=== PATIENT | female | born 1965 | race Caucasian/White ===

== ENCOUNTER 2020-01-04 09:44 | Day surgery (SDC) | payer BC, SELFPAY ==
[2019-12-28 11:55] VITALS: BMI 22.1
--- NOTE | 2020-01-02 09:08 | P.CONAN_ITS ---
Documented by User: Bridget Akers 01/02/20 09:10 HPI - Anesthesia Eval Consult details Narrative: 54yo F for Colonoscopy [facility] Past Medical History Medical History CLL (chronic lymphocytic leukemia) Surgical History Surgical History Hx of section Social History Social History Are you a primary care management coordinator to a significant other at home: No Do you presently have visiting nurse or other home services: No Smoking Status: Never smoker Use of substances other than those prescribed or required for medical reasons: No Have you been hit, kicked, punched, or otherwise hurt by someone within the past year? If so, by whom?: No Advance Directives: No Advance Directives Information Provided: No Recently lost weight without trying: No Meds Allergies Allergy/AdvReac Type Severity Reaction Status Date / Time codeine [Codeine] Allergy Unknown RASH Verified 01/04/20 10:06 Home Medications Medication Instructions Recorded Confirmed Type cholecalciferol (vitamin D3) 50 mcg PO DAILY 12/28/19 12/28/19 History [Vitamin D3] Exam Exam Date and Time: January 02, 2020 0908 Height,Weight and Vital Signs: Height 5 ft 3 in Weight 56.699 kg Pertinent Lab Results Pertinent Lab Results: Laboratory Tests 05/22/19 12/18/19 09:27 09:17 WBC 18.0 H Hgb 10.2 L Hct 33.7 L Plt Count 145 L Sodium 141 Potassium 4.5 Chloride 104 BUN 12 Creatinine 0.84 Assessment and Plan Assessment Anesthesia Assessment: Chart Reviewed Documented by User: Jackson Larry MD 01/04/20 10:13 [facility] Past Medical History Medical History CLL (chronic lymphocytic leukemia) Surgical History Surgical History Hx of section Social History Social History Are you a primary care management coordinator to a significant other at home: No Do you presently have visiting nurse or other home services: No Smoking Status: Never smoker Use of substances other than those prescribed or required for medical reasons: No Have you been hit, kicked, punched, or otherwise hurt by someone within the past year? If so, by whom?: No Advance Directives: No Advance Directives Information Provided: No Recently lost weight without trying: No Meds Allergies Allergy/AdvReac Type Severity Reaction Status Date / Time codeine [Codeine] Allergy Unknown RASH Verified 01/04/20 10:06 Home Medications Medication Instructions Recorded Confirmed Type cholecalciferol (vitamin D3) 50 mcg PO DAILY 12/28/19 12/28/19 History [Vitamin D3] Exam Airway Mallampati Class: II TM Dist: >3cm Neck ROM: Full Heart: rrr Lungs: nl Other: ao Assessment and Plan Assessment Anesthesia Assessment: Anesthesia Plan Discussed and Chart Reviewed Final Anesthetic Review NPO: Yes ASA Class: III Final Preanesthetic Review: No Changes in Pt Med Stat, Meds/Allgs Chart Reviewed, Consent Obtained/Reviewed and Anes Risks/Benef Reviewed Patient Risk: Low Procedure Risk: Low Anesthetic Plan Anesthetic Plan: MAC: Disposition: Standard PACU
[2020-01-04 10:07] VITALS: BP 142/77; PULSE 63; RESP 16; TEMP 37; O2SAT 100
[2020-01-04] MEDS: Lactated Ringers 1,000 ML 100 ML IVCONT (10:29)
--- NOTE | 2020-01-04 11:03 | P.HPSUR_ITS ---
Pre-Procedural Eval Section A The patient is an INPATIENT: No The History & Physical has been completed within 30 days and I have reviewed it.: No Section B Chief Complaint: Diarrhea Details of Present Illness: Colon cancer screening--Diarrhea only episdodic. Relevant Family History (Specify if Yes): No Relevant Social History: None Present Medications: see Short Stay Collaborative assessment Medical History: Significant History (CLL) History of Previous Operations: Relevant previous surgery/procedure and date(s) ( x 1) Allergies: Allergies Allergy/AdvReac Type Severity Reaction Status Date / Time codeine [Codeine] Allergy Unknown RASH Verified 01/04/20 10:06 Review of Systems Sugical H&P ROS: Negative: Constitution, Cardiovascular, Respiratory and Gastrointestinal and Yes, Specify: Hem-Onc (CLL--followed @ [facility]) Review of Systems Comment: General ROS is negative. Exam Surgical H&P Exam: Normal: HEENT, Normal: Heart, Normal: Lungs, Normal: E xtremities, Normal: Abdomen and Normal: Skin Plan Diagnosis/Plan: Unchanged Patient has been examined and remains a candidate for the planned procedure--YES
--- NOTE | 2020-01-04 11:11 | MHC.SHP ---
Pre-Procedural Eval Section A The patient is an INPATIENT: No The History & Physical has been completed within 30 days and I have reviewed it.: No Section B Chief Complaint: Diarrhea Details of Present Illness: Colonoscopy--Colon cancer screening Relevant Family History (Specify if Yes): No Relevant Social History: None Present Medications: see Short Stay Collaborative assessment Medical History: Significant History (CLL) History of Previous Operations: No relevant previous surgery () Allergies: Allergies Allergy/AdvReac Type Severity Reaction Status Date / Time codeine [Codeine] Allergy Unknown RASH Verified 01/04/20 10:06 Review of Systems Sugical H&P ROS: Negative: Constitution, Cardiovascular, Respiratory, Neurological, Psychiatric and Gastrointestinal Review of Systems Comment: General ROS is negative Exam Surgical H&P Exam: Normal: HEENT, Normal: Heart, Normal: Lungs, Normal: Extremities, Normal: Abdomen and Normal: Skin Plan Patient has been examined and remains a candidate for the planned procedure--YES
--- NOTE | 2020-01-04 11:36 | PM.PROC ---
Brief Operative Note Date of procedure: 01/04/20 Pre-op diagnosis: Colon cancer screening Post-op diagnosis: other (Normal exam ) Procedure: COLONOSCOPY Anesthesia: MAC (SHERRILL GUSMNA) Surgeon: Akosua Hunter Estimated blood loss (mL): 0 Pathology: none sent Condition: stable Disposition: PACU
[2020-01-04 11:40] VITALS: BP 105/50; PULSE 70; RESP 16; TEMP 36.1; O2SAT 99
[2020-01-04 11:55] VITALS: BP 100/62; PULSE 66; RESP 16; O2SAT 97
[2020-01-04 12:10] VITALS: BP 119/78; PULSE 65; RESP 16; O2SAT 99
[2020-01-04 12:25] VITALS: BP 131/77; PULSE 62; RESP 16; O2SAT 100
--- NOTE | 2020-01-04 12:48 | HO.POSTANES ---
Post Anesthesia Evaluation Post Anesthesia Evaluation Vital Signs: Vital Signs Temp Pulse Resp BP Pulse Ox 01/04/20 12:25 62 16 131/77 100 01/04/20 12:10 65 16 119/78 99 01/04/20 11:55 66 16 100/62 97 01/04/20 11:40 97 F 70 16 105/50 L 99 01/04/20 10:07 98.6 F 63 16 142/77 H 100 Anesthesia: Monitored Mental Status: Awake Pain Control: Satisfactory Nausea/Vomiting: None Hydration: Adequate Anesthesia-Related Issues: No Anes. Related Issues
--- NOTE | 2020-01-04 20:59 | OP_ITS ---
SURGEON: Akosua Hunter MD PREOPERATIVE DIAGNOSIS: Colon cancer screening. Note, the patient has a history of carrying a diagnosis of chronic lymphocytic leukemia. POSTOPERATIVE DIAGNOSIS: Normal exam. PROCEDURE PERFORMED: Colonoscopy. ESTIMATED BLOOD LOSS: No blood loss. COMPLICATIONS: No complications. ANESTHESIA: Monitored. ANESTHESIOLOGIST: Maninder Erazo CRNA ASSISTANTS: No financial sales assistant. SPECIMENS: No specimens removed. GAMING CAGE WORKER: Dr. Hunter. FINDINGS: Digital rectal exam revealed sphincter tone to be adequate. Video colonoscope was introduced without difficulty. It was navigated into the rectosigmoid and sigmoid. With slight redundancy in this area, scope then entered descending, transverse, ascending colon down into the cecal cap. Prep was excellent. Good mucosal detail was present. Slow rotational views on withdrawal of the scope. No mucosal lesions were appreciated. Anorectal verge was clear. PLAN AND CURRENT RECOMMENDATIONS: Repeat asymptomatic screening in this patient would be 7 years taking into consideration and underlying comorbid process. GRAFT OR IMPLANTS: No implants. CONDITION: Postprocedure, stable. Akosua Hunter MD MEN/MODL / [id number] MTDD
== END 2020-01-04 13:21 | disposition home or self-care (01) ==
PROVIDERS: Internal Medicine Gastroenterology; PCP Internal Medicine; Visit Provider Internal Medicine
PROC: 0DJD8ZZ Inspection of Lower Intestinal Tract, Via Natural or Artificial Opening Endoscopic (ICD-10-PCS; CPT 45378; principal; 2020-01-04 11:10)
DX: Z12.11 Encounter for screening for malignant neoplasm of colon (principal); R19.7 Diarrhea, unspecified; C91.10 Chronic lymphocytic leukemia of B-cell type not having achieved remission; Z88.8 Allergy status to other drugs, medicaments and biological substances; Z79.899 Other long term (current) drug therapy
CPT/HCPCS: 45378

== ENCOUNTER → 2020-01-24 16:31 | Outpatient (BNVA) | payer BC, SELFPAY | PROVIDERS: PCP Internal Medicine; Referring Provider Internal Medicine; Visit Provider Physician Assistant | DX: Z76.89 Persons encountering health services in other specified circumstances (principal) ==

== ENCOUNTER 2020-02-01 08:02 | Outpatient (REF) | payer BC, SELFPAY ==
[2020-02-01 11:28] LABS: Hemoglobin 10.4 g/dl (12.0-16.0); Imm Gran Pct Auto 0.4 % (0.0-0.4); Lymphocytes Percent Auto 82.9 % (20-40); MANUAL DIFF FLAG SCAN; Mean Platelet Volume 11.7 fL (9.4-12.3); NRBC Pct Auto 0.1 /100WBC (0.0-0.2); PLT CLUMP 1; SCAN SMEAR FLAG 1
[2020-02-01 11:30] LABS: Basophils Absolute Auto 0.1 X10*3/uL (0.0-0.2); Basophils Percent Auto 0.5 % (0-2); Eosinophils Absolute Auto 0.2 X10*3/uL (0.0-0.4); Eosinophils Percent Auto 0.8 % (0-4); Hematocrit 34.7 % (37-47); Mean Corpuscular Hemoglobin 23.7 pg (27.0-33.0); Mean Corpuscular Volume 79.2 fL (80-98); Monocytes Absolute Auto 0.6 X10*3/uL (0.1-1.2); Monocytes Percent Auto 2.5 % (2-11); Neutrophils Absolute Auto 3.3 X10*3/uL (2.0-8.3); Neutrophils Percent Auto 12.9 % (45-73); Red Blood Count 4.38 X10*6/uL (4.20-5.50); White Blood Count 25.7 X10*3/uL (4.8-10.8)
[2020-02-01 11:36] LABS: Lymphocytes Absolute Auto 21.3 X10*3/uL (1.2-4.9)
[2020-02-01 11:37] LABS: PLT ABN DIST 1
[2020-02-01 12:45] LABS: Platelet Count 135 X10*3/uL (160-400)
[2020-02-01 14:22] LABS: SLIDE REVIEW VERIFIED
== END 2020-02-01 08:03 | disposition home or self-care (01) ==
LOC: HO.HMGCLR 08:02
PROVIDERS: PCP Internal Medicine; Visit Provider Internal Medicine Hematology & Oncology
DX: C91.10 Chronic lymphocytic leukemia of B-cell type not having achieved remission (principal)
CPT/HCPCS: 36415; 85025

== ENCOUNTER 2020-03-14 09:57 | Outpatient (REF) | payer BC, SELFPAY | END 2020-03-14 09:58 | disposition home or self-care (01) | LOC: HO.LAB 09:57 | PROVIDERS: Visit Provider Nurse Practitioner Family | DX: N39.0 Urinary tract infection, site not specified (principal); R30.0 Dysuria | CPT/HCPCS: 87086; 87088; 87186 ==

== ENCOUNTER 2020-04-22 10:25 | Outpatient (REF) | payer BC, SELFPAY ==
[2020-04-22 11:16] LABS: Hematocrit 32.7 % (37-47); Hemoglobin 9.6 g/dl (12.0-16.0); Mean Corpuscular HGB Conc 29.4 g/dl (31.0-35.0); NRBC Pct Auto 0.1 /100WBC (0.0-0.2); PLT CLUMP 1; Red Cell Distribution Width 21.4 % (11.0-16.0)
[2020-04-22 11:18] LABS: Mean Corpuscular Hemoglobin 24.1 pg (27.0-33.0); Mean Platelet Volume 10.4 fL (9.4-12.3); Platelet Count 129 X10*3/uL (160-400); Red Blood Count 3.99 X10*6/uL (4.20-5.50)
[2020-04-22 13:58] LABS: PLT ABN DIST 1; WBC ABN SCTR FOR CBC 1
[2020-04-22 13:59] LABS: White Blood Count 66.6 X10*3/uL (4.8-10.8)
[2020-04-22 14:09] LABS: Band Neutrophils Percent 0 % (3-5); Hypochromasia 1+; Lymphocytes Absolute Manual 57.9 X10*3/uL (0.6-4.8); Lymphocytes Percent Manual 87 % (20-40); Monocytes Absolute Manual 1.3 X10*3/uL (0.0-1.2); Monocytes Percent Manual 2 % (2-11); Neutrophils Absolute Manual 7.3 X10*3/uL (2.2-7.9); Neutrophils Percent Manual 11 % (45-73); RBC Morphology NOTED; Smudge Cells PRESENT
[2020-04-22 14:10] LABS: Ovalocytes 1+; Platelet Estimate SLIGHTLY DECREASED (NORMAL); Platelet Morphology Comment NORMAL
== END 2020-04-22 10:26 | disposition home or self-care (01) ==
LOC: HO.HMGCLDS 10:25
PROVIDERS: PCP Internal Medicine; Visit Provider Internal Medicine Hematology & Oncology
DX: C91.10 Chronic lymphocytic leukemia of B-cell type not having achieved remission (principal)
CPT/HCPCS: 36415; 85007; 85025; 85027

== ENCOUNTER 2020-05-13 07:54 | Outpatient (REF) | payer BC, SELFPAY ==
[2020-05-13 11:21] LABS: Basophils Absolute Auto 0.2 X10*3/uL (0.0-0.2); Basophils Percent Auto 0.4 % (0-2); Eosinophils Absolute Auto 0.2 X10*3/uL (0.0-0.4); Eosinophils Percent Auto 0.4 % (0-4); Hematocrit 36.4 % (37-47); Hemoglobin 10.6 g/dl (12.0-16.0); Imm Gran Abs Auto 0.03 X10*3/uL (0.00-0.03); Imm Gran Pct Auto 0.1 % (0.0-0.4); MANUAL DIFF FLAG SCAN; Mean Corpuscular HGB Conc 29.1 g/dl (31.0-35.0); PLT CLUMP 1; SCAN SMEAR FLAG 1
[2020-05-13 11:23] LABS: Lymphocytes Percent Auto 94.1 % (20-40); Mean Corpuscular Hemoglobin 25.4 pg (27.0-33.0); Mean Corpuscular Volume 87.3 fL (80-98); Mean Platelet Volume 10.4 fL (9.4-12.3); Monocytes Absolute Auto 0.8 X10*3/uL (0.1-1.2); Neutrophils Absolute Auto 1.3 X10*3/uL (2.0-8.3); Platelet Count 183 X10*3/uL (160-400); Red Blood Count 4.17 X10*6/uL (4.20-5.50); Red Cell Distribution Width 24.1 % (11.0-16.0)
[2020-05-13 11:41] LABS: Lymphocytes Absolute Auto 39.7 X10*3/uL (1.2-4.9)
[2020-05-13 12:07] LABS: SLIDE REVIEW VERIFIED; White Blood Count 42.2 X10*3/uL (4.8-10.8)
== END 2020-05-13 07:55 | disposition home or self-care (01) ==
LOC: HO.HMGCLDS 07:54
PROVIDERS: PCP Internal Medicine; Visit Provider Internal Medicine Hematology & Oncology
DX: C91.10 Chronic lymphocytic leukemia of B-cell type not having achieved remission (principal)
CPT/HCPCS: 36415; 85025

== ENCOUNTER → 2020-05-15 07:55 | Outpatient (BNVA) | payer BC, SELFPAY | PROVIDERS: PCP Internal Medicine; Referring Provider Internal Medicine; Visit Provider Advanced Practice Midwife ==

== ENCOUNTER 2020-06-13 10:18 | Outpatient (REF) | payer BC, SELFPAY ==
[2020-06-13 11:21] LABS: Basophils Absolute Auto 0.1 X10*3/uL (0.0-0.2); Basophils Percent Auto 0.3 % (0-2); Eosinophils Absolute Auto 0.1 X10*3/uL (0.0-0.4); Eosinophils Percent Auto 0.3 % (0-4); Hematocrit 36.6 % (37-47); Hemoglobin 11.2 g/dl (12.0-16.0); Imm Gran Abs Auto 0.24 X10*3/uL (0.00-0.03); Imm Gran Pct Auto 1.3 % (0.0-0.4); Lymphocytes Percent Auto 88.3 % (20-40); MANUAL DIFF FLAG SCAN; Mean Corpuscular HGB Conc 30.6 g/dl (31.0-35.0); Mean Corpuscular Hemoglobin 26.4 pg (27.0-33.0); Mean Corpuscular Volume 86.3 fL (80-98); Mean Platelet Volume 11.3 fL (9.4-12.3); Monocytes Absolute Auto 1.3 X10*3/uL (0.1-1.2); Monocytes Percent Auto 6.9 % (2-11); Neutrophils Absolute Auto 0.6 X10*3/uL (2.0-8.3); Neutrophils Percent Auto 2.9 % (45-73); Platelet Count 152 X10*3/uL (160-400); Red Blood Count 4.24 X10*6/uL (4.20-5.50); Red Cell Distribution Width 19.4 % (11.0-16.0); SCAN SMEAR FLAG 1; White Blood Count 18.6 X10*3/uL (4.8-10.8)
[2020-06-13 11:24] LABS: Lymphocytes Absolute Auto 16.5 X10*3/uL (1.2-4.9)
[2020-06-13 12:13] LABS: SLIDE REVIEW VERIFIED
== END 2020-06-13 10:19 | disposition home or self-care (01) ==
LOC: HO.HMGCLDS 10:18
PROVIDERS: PCP Internal Medicine; Visit Provider Internal Medicine Hematology & Oncology
DX: C91.10 Chronic lymphocytic leukemia of B-cell type not having achieved remission (principal)
CPT/HCPCS: 36415; 85025

== ENCOUNTER 2020-06-20 08:53 | Outpatient (REF) | payer BC, SELFPAY ==
[2020-06-20 11:37] LABS: Basophils Absolute Auto 0.1 X10*3/uL (0.0-0.2); Basophils Percent Auto 0.5 % (0-2); Eosinophils Percent Auto 0.1 % (0-4); Hematocrit 40.1 % (37-47); Hemoglobin 12.2 g/dl (12.0-16.0); Imm Gran Abs Auto 0.06 X10*3/uL (0.00-0.03); Imm Gran Pct Auto 0.5 % (0.0-0.4); Lymphocytes Percent Auto 95.3 % (20-40); MANUAL DIFF FLAG SCAN; Mean Corpuscular HGB Conc 30.4 g/dl (31.0-35.0); Mean Corpuscular Hemoglobin 26.8 pg (27.0-33.0); Mean Corpuscular Volume 88.1 fL (80-98); Mean Platelet Volume 11.2 fL (9.4-12.3); Monocytes Absolute Auto 0.3 X10*3/uL (0.1-1.2); Monocytes Percent Auto 2.8 % (2-11); Neutrophils Absolute Auto 0.1 X10*3/uL (2.0-8.3); Neutrophils Percent Auto 0.8 % (45-73); Platelet Count 151 X10*3/uL (160-400); Red Blood Count 4.55 X10*6/uL (4.20-5.50); Red Cell Distribution Width 18.6 % (11.0-16.0); SCAN SMEAR FLAG 1; White Blood Count 11.1 X10*3/uL (4.8-10.8)
[2020-06-20 12:18] LABS: Lymphocytes Absolute Auto 10.6 X10*3/uL (1.2-4.9)
[2020-06-20 12:34] LABS: SLIDE REVIEW VERIFIED
== END 2020-06-20 08:54 | disposition home or self-care (01) ==
LOC: HO.HMGCLDS 08:53
PROVIDERS: PCP Internal Medicine; Visit Provider Internal Medicine Hematology & Oncology
DX: C91.10 Chronic lymphocytic leukemia of B-cell type not having achieved remission (principal)
CPT/HCPCS: 36415; 85025

== ENCOUNTER 2020-06-27 08:05 | Outpatient (REF) | payer BC, SELFPAY ==
[2020-06-27 14:10] LABS: Hemoglobin 11.9 g/dl (12.0-16.0); Mean Corpuscular HGB Conc 30.5 g/dl (31.0-35.0); Mean Corpuscular Hemoglobin 26.9 pg (27.0-33.0); Mean Corpuscular Volume 88.2 fL (80-98); Mean Platelet Volume 11.3 fL (9.4-12.3); NRBC Pct Auto 0.1 /100WBC (0.0-0.2); Platelet Count 204 X10*3/uL (160-400); Red Blood Count 4.42 X10*6/uL (4.20-5.50); Red Cell Distribution Width 18.1 % (11.0-16.0); White Blood Count 22.5 X10*3/uL (4.8-10.8)
[2020-06-27 15:18] LABS: Band Neutrophils Percent 1 % (3-5); Basophils Abs Manual 0.2 X10*3/uL (0.0-0.3); Basophils Percent Manual 1 % (0-1); Eosinophils Absolute Manual 0.2 X10*3/UL (0.0-0.8); Eosinophils Percent Manual 1 % (0-4); Lymphocytes Absolute Manual 19.6 X10*3/uL (0.6-4.8); Lymphocytes Percent Manual 87 % (20-40); Metamyelocytes Absolute 0.5 X10*3/uL; Metamyelocytes Percent 2 %; Monocytes Absolute Manual 0.5 X10*3/uL (0.0-1.2); Monocytes Percent Manual 2 % (2-11); Myelocytes Absolute 0.2 X10*/uL; Myelocytes Percent 1 %; Neutrophils Absolute Manual 1.4 X10*3/uL (2.2-7.9); Neutrophils Percent Manual 5 % (45-73)
[2020-06-27 15:19] LABS: Acanthocytes 1+ (0-2) /OIF; Hypochromasia 1+ (5-14) /OIF; Ovalocytes 1+ (5-14) /OIF; RBC Morphology NOTED
[2020-06-27 15:20] LABS: Nucleated Red Blood Cells 1 /100WBC (0-0); Platelet Estimate NORMAL (NORMAL); Platelet Morphology Comment NORMAL; Smudge Cells PRESENT
== END 2020-06-27 08:06 | disposition home or self-care (01) ==
LOC: HO.HMGCLDS 08:05
PROVIDERS: Visit Provider Internal Medicine Hematology & Oncology
DX: C91.10 Chronic lymphocytic leukemia of B-cell type not having achieved remission (principal)
CPT/HCPCS: 36415; 85007; 85025; 85027

== ENCOUNTER 2020-07-11 09:05 | Outpatient (REF) | payer BC, SELFPAY ==
[2020-07-11 11:43] LABS: Hemoglobin 12.9 g/dl (12.0-16.0); Mean Corpuscular Volume 87.9 fL (80-98); Red Cell Distribution Width 16.5 % (11.0-16.0)
[2020-07-11 11:45] LABS: Mean Corpuscular HGB Conc 30.7 g/dl (31.0-35.0); Platelet Count 178 X10*3/uL (160-400); Red Blood Count 4.78 X10*6/uL (4.20-5.50)
[2020-07-11 11:51] LABS: PLT ABN DIST 1; WBC ABN SCTR FOR CBC 1; White Blood Count 14.3 X10*3/uL (4.8-10.8)
[2020-07-11 14:09] LABS: Band Neutrophils Percent 1 % (3-5); Lymphocytes Absolute Manual 12.3 X10*3/uL (0.6-4.8); Lymphocytes Percent Manual 86 % (20-40); Monocytes Absolute Manual 1.4 X10*3/uL (0.0-1.2); Monocytes Percent Manual 10 % (2-11); Myelocytes Absolute 0.1 X10*/uL; Myelocytes Percent 1 %; Neutrophils Absolute Manual 0.4 X10*3/uL (2.2-7.9); Neutrophils Percent Manual 2 % (45-73)
[2020-07-11 14:12] LABS: Acanthocytes 1+ (0-2) /OIF; RBC Morphology NOTED
[2020-07-11 14:13] LABS: Platelet Estimate NORMAL (NORMAL); Smudge Cells PRESENT
[2020-07-11 14:14] LABS: Platelet Morphology Comment NORM
[2020-07-11 14:15] LABS: Ovalocytes 1+ (5-14) /OIF
== END 2020-07-11 09:06 | disposition home or self-care (01) ==
LOC: HO.HMGCLDS 09:05
PROVIDERS: PCP Internal Medicine; Visit Provider Internal Medicine Hematology & Oncology
DX: C91.10 Chronic lymphocytic leukemia of B-cell type not having achieved remission (principal)
CPT/HCPCS: 36415; 85007; 85027

== ENCOUNTER 2020-07-18 07:58 | Outpatient (REF) | payer BC, SELFPAY ==
[2020-07-18 11:44] LABS: Basophils Absolute Auto 0.1 X10*3/uL (0.0-0.2); Basophils Percent Auto 0.8 % (0-2); Eosinophils Percent Auto 0.2 % (0-4); Hematocrit 42.8 % (37-47); Hemoglobin 12.9 g/dl (12.0-16.0); Imm Gran Abs Auto 0.05 X10*3/uL (0.00-0.03); Imm Gran Pct Auto 0.4 % (0.0-0.4); Lymphocytes Percent Auto 79.5 % (20-40); MANUAL DIFF FLAG SCAN; Mean Corpuscular HGB Conc 30.1 g/dl (31.0-35.0); Mean Corpuscular Hemoglobin 26.5 pg (27.0-33.0); Mean Corpuscular Volume 87.9 fL (80-98); Mean Platelet Volume 11.4 fL (9.4-12.3); Monocytes Absolute Auto 0.5 X10*3/uL (0.1-1.2); Monocytes Percent Auto 4.4 % (2-11); Neutrophils Absolute Auto 1.6 X10*3/uL (2.0-8.3); Neutrophils Percent Auto 14.7 % (45-73); Platelet Count 169 X10*3/uL (160-400); Red Blood Count 4.87 X10*6/uL (4.20-5.50); SCAN SMEAR FLAG 1; White Blood Count 11.2 X10*3/uL (4.8-10.8)
[2020-07-18 12:13] LABS: Lymphocytes Absolute Auto 8.9 X10*3/uL (1.2-4.9)
[2020-07-18 12:17] LABS: SLIDE REVIEW VERIFIED
== END 2020-07-18 07:59 | disposition home or self-care (01) ==
LOC: HO.HMGCLDS 07:58
PROVIDERS: PCP Internal Medicine; Visit Provider Internal Medicine Hematology & Oncology
DX: C91.10 Chronic lymphocytic leukemia of B-cell type not having achieved remission (principal)
CPT/HCPCS: 36415; 85025

== ENCOUNTER 2020-07-25 07:52 | Outpatient (REF) | payer BC, SELFPAY ==
[2020-07-25 11:44] LABS: Basophils Absolute Auto 0.1 X10*3/uL (0.0-0.2); Basophils Percent Auto 0.9 % (0-2); Eosinophils Percent Auto 0.3 % (0-4); Hematocrit 40.1 % (37-47); Hemoglobin 12.4 g/dl (12.0-16.0); Imm Gran Abs Auto 0.02 X10*3/uL (0.00-0.03); Imm Gran Pct Auto 0.3 % (0.0-0.4); Lymphocytes Percent Auto 82.2 % (20-40); MANUAL DIFF FLAG SCAN; Mean Corpuscular HGB Conc 30.9 g/dl (31.0-35.0); Mean Corpuscular Hemoglobin 26.8 pg (27.0-33.0); Mean Corpuscular Volume 86.8 fL (80-98); Mean Platelet Volume 11.3 fL (9.4-12.3); Monocytes Absolute Auto 0.4 X10*3/uL (0.1-1.2); Monocytes Percent Auto 4.8 % (2-11); Neutrophils Absolute Auto 0.9 X10*3/uL (2.0-8.3); Neutrophils Percent Auto 11.5 % (45-73); Platelet Count 182 X10*3/uL (160-400); Red Blood Count 4.62 X10*6/uL (4.20-5.50); Red Cell Distribution Width 15.3 % (11.0-16.0); SCAN SMEAR FLAG 1; White Blood Count 7.8 X10*3/uL (4.8-10.8)
[2020-07-25 12:21] LABS: Lymphocytes Absolute Auto 6.4 X10*3/uL (1.2-4.9)
[2020-07-25 13:03] LABS: SLIDE REVIEW VERIFIED
== END 2020-07-25 07:53 | disposition home or self-care (01) ==
LOC: HO.HMGCLDS 07:52
PROVIDERS: PCP Internal Medicine; Visit Provider Internal Medicine Hematology & Oncology
DX: C91.10 Chronic lymphocytic leukemia of B-cell type not having achieved remission (principal)
CPT/HCPCS: 36415; 85025

== ENCOUNTER 2020-08-08 08:01 | Outpatient (REF) | payer BC, SELFPAY ==
[2020-08-08 11:44] LABS: Hematocrit 41.6 % (37-47); Hemoglobin 12.8 g/dl (12.0-16.0); Mean Corpuscular HGB Conc 30.8 g/dl (31.0-35.0); Mean Corpuscular Hemoglobin 27.1 pg (27.0-33.0); Mean Corpuscular Volume 88.1 fL (80-98); Mean Platelet Volume 11.8 fL (9.4-12.3); Platelet Count 186 X10*3/uL (160-400); Red Blood Count 4.72 X10*6/uL (4.20-5.50); Red Cell Distribution Width 15.1 % (11.0-16.0); White Blood Count 9.7 X10*3/uL (4.8-10.8)
[2020-08-08 13:06] LABS: Band Neutrophils Percent 3 % (3-5); Basophils Abs Manual 0.1 X10*3/uL (0.0-0.3); Basophils Percent Manual 1 % (0-1); Lymphocytes Absolute Manual 7.4 X10*3/uL (0.6-4.8); Lymphocytes Percent Manual 76 % (20-40); Metamyelocytes Absolute 0.2 X10*3/uL; Metamyelocytes Percent 2 %; Monocytes Absolute Manual 0.4 X10*3/uL (0.0-1.2); Monocytes Percent Manual 4 % (2-11); Neutrophils Absolute Manual 1.6 X10*3/uL (2.2-7.9); Neutrophils Percent Manual 13 % (45-73); Promyelocytes Absolute 0.1 X10*3/uL; Promyelocytes Percent 1 %
[2020-08-08 13:07] LABS: Acanthocytes 1+ (0-2) /OIF; Giant Platelet PRESENT; Large Platelet PRESENT; Ovalocytes 1+ (5-14) /OIF; Platelet Estimate NORMAL (NORMAL); Platelet Morphology Comment NOTED; RBC Morphology NORMAL
== END 2020-08-08 08:02 | disposition home or self-care (01) ==
LOC: HO.HMGCLDS 08:01
PROVIDERS: PCP Internal Medicine; Visit Provider Internal Medicine Hematology & Oncology
DX: C91.10 Chronic lymphocytic leukemia of B-cell type not having achieved remission (principal)
CPT/HCPCS: 36415; 85007; 85027

== ENCOUNTER 2020-08-15 07:50 | Outpatient (REF) | payer BC, SELFPAY ==
[2020-08-15 11:24] LABS: Basophils Percent Auto 0.8 % (0-2); Eosinophils Percent Auto 0.4 % (0-4); Hematocrit 40.3 % (37-47); Hemoglobin 12.5 g/dl (12.0-16.0); Imm Gran Abs Auto 0.01 X10*3/uL (0.00-0.03); Imm Gran Pct Auto 0.2 % (0.0-0.4); Lymphocytes Absolute Auto 3.9 X10*3/uL (1.2-4.9); Lymphocytes Percent Auto 78.4 % (20-40); MANUAL DIFF FLAG SCAN; Mean Corpuscular Hemoglobin 26.8 pg (27.0-33.0); Mean Corpuscular Volume 86.5 fL (80-98); Monocytes Absolute Auto 0.3 X10*3/uL (0.1-1.2); Monocytes Percent Auto 5.5 % (2-11); Neutrophils Absolute Auto 0.7 X10*3/uL (2.0-8.3); Neutrophils Percent Auto 14.7 % (45-73); Platelet Count 118 X10*3/uL (160-400); Red Blood Count 4.66 X10*6/uL (4.20-5.50); Red Cell Distribution Width 14.9 % (11.0-16.0); SCAN SMEAR FLAG 1; White Blood Count 4.9 X10*3/uL (4.8-10.8)
[2020-08-15 11:48] LABS: SLIDE REVIEW VERIFIED
== END 2020-08-15 07:51 | disposition home or self-care (01) ==
LOC: HO.HMGCLDS 07:50
PROVIDERS: PCP Internal Medicine; Visit Provider Internal Medicine Hematology & Oncology
DX: C91.10 Chronic lymphocytic leukemia of B-cell type not having achieved remission (principal)
CPT/HCPCS: 36415; 85025

== ENCOUNTER 2020-08-22 07:52 | Outpatient (REF) | payer BC, SELFPAY ==
[2020-08-22 11:50] LABS: MANUAL DIFF FLAG NO
[2020-08-22 12:09] LABS: Basophils Absolute Auto 0.1 X10*3/uL (0.0-0.2); Basophils Percent Auto 1.3 % (0-2); Eosinophils Percent Auto 0.4 % (0-4); Hemoglobin 12.8 g/dl (12.0-16.0); Imm Gran Abs Auto 0.01 X10*3/uL (0.00-0.03); Imm Gran Pct Auto 0.2 % (0.0-0.4); Lymphocytes Percent Auto 54.5 % (20-40); Mean Corpuscular HGB Conc 31.2 g/dl (31.0-35.0); Mean Corpuscular Hemoglobin 27.2 pg (27.0-33.0); Mean Platelet Volume 12.5 fL (9.4-12.3); Monocytes Absolute Auto 0.3 X10*3/uL (0.1-1.2); Monocytes Percent Auto 5.1 % (2-11); Neutrophils Absolute Auto 2.1 X10*3/uL (2.0-8.3); Neutrophils Percent Auto 38.5 % (45-73); Platelet Count 144 X10*3/uL (160-400); Red Blood Count 4.71 X10*6/uL (4.20-5.50); Red Cell Distribution Width 15.4 % (11.0-16.0); White Blood Count 5.5 X10*3/uL (4.8-10.8)
== END 2020-08-22 07:53 | disposition home or self-care (01) ==
LOC: HO.HMGCLDS 07:52
PROVIDERS: PCP Internal Medicine; Visit Provider Internal Medicine Hematology & Oncology
DX: C91.10 Chronic lymphocytic leukemia of B-cell type not having achieved remission (principal)
CPT/HCPCS: 36415; 85025

== ENCOUNTER 2020-09-05 08:02 | Outpatient (REF) | payer BC, SELFPAY ==
[2020-09-05 11:27] LABS: Basophils Absolute Auto 0.1 X10*3/uL (0.0-0.2); Hematocrit 41.1 % (37-47); Hemoglobin 12.9 g/dl (12.0-16.0); Imm Gran Abs Auto 0.01 X10*3/uL (0.00-0.03); Imm Gran Pct Auto 0.3 % (0.0-0.4); Lymphocytes Absolute Auto 1.8 X10*3/uL (1.2-4.9); Lymphocytes Percent Auto 61.5 % (20-40); MANUAL DIFF FLAG SCAN; Mean Corpuscular HGB Conc 31.4 g/dl (31.0-35.0); Mean Corpuscular Hemoglobin 27.2 pg (27.0-33.0); Mean Corpuscular Volume 86.5 fL (80-98); Mean Platelet Volume 11.4 fL (9.4-12.3); Monocytes Absolute Auto 0.3 X10*3/uL (0.1-1.2); Monocytes Percent Auto 11.4 % (2-11); Neutrophils Absolute Auto 0.7 X10*3/uL (2.0-8.3); Neutrophils Percent Auto 23.8 % (45-73); Platelet Count 150 X10*3/uL (160-400); Red Blood Count 4.75 X10*6/uL (4.20-5.50); Red Cell Distribution Width 15.4 % (11.0-16.0); SCAN SMEAR FLAG 1
[2020-09-05 11:53] LABS: SLIDE REVIEW VERIFIED
== END 2020-09-05 08:03 | disposition home or self-care (01) ==
LOC: HO.HMGCLDS 08:02
PROVIDERS: PCP Internal Medicine; Visit Provider Internal Medicine Hematology & Oncology
DX: C91.10 Chronic lymphocytic leukemia of B-cell type not having achieved remission (principal)
CPT/HCPCS: 36415; 85025

== ENCOUNTER 2020-09-12 08:39 | Outpatient (REF) | payer BC, SELFPAY ==
[2020-09-12 11:25] LABS: MANUAL DIFF FLAG NO
[2020-09-12 11:44] LABS: Basophils Absolute Auto 0.1 X10*3/uL (0.0-0.2); Basophils Percent Auto 0.6 % (0-2); Eosinophils Percent Auto 0.1 % (0-4); Hematocrit 40.3 % (37-47); Hemoglobin 12.6 g/dl (12.0-16.0); Imm Gran Abs Auto 0.32 X10*3/uL (0.00-0.03); Lymphocytes Absolute Auto 1.7 X10*3/uL (1.2-4.9); Lymphocytes Percent Auto 10.8 % (20-40); Mean Corpuscular HGB Conc 31.3 g/dl (31.0-35.0); Mean Corpuscular Hemoglobin 27.3 pg (27.0-33.0); Mean Corpuscular Volume 87.2 fL (80-98); Mean Platelet Volume 12.4 fL (9.4-12.3); Monocytes Absolute Auto 0.6 X10*3/uL (0.1-1.2); Monocytes Percent Auto 3.5 % (2-11); Neutrophils Absolute Auto 13.1 X10*3/uL (2.0-8.3); Platelet Count 128 X10*3/uL (160-400); Red Blood Count 4.62 X10*6/uL (4.20-5.50); Red Cell Distribution Width 15.8 % (11.0-16.0); White Blood Count 15.8 X10*3/uL (4.8-10.8)
== END 2020-09-12 08:40 | disposition home or self-care (01) ==
LOC: HO.HMGCLR 08:39
PROVIDERS: PCP Internal Medicine Hematology & Oncology; Visit Provider Internal Medicine Hematology & Oncology
DX: C91.10 Chronic lymphocytic leukemia of B-cell type not having achieved remission (principal)
CPT/HCPCS: 36415; 85025

== ENCOUNTER 2020-11-07 07:43 | Outpatient (REF) | payer BC, SELFPAY ==
[2020-11-07 11:25] LABS: Basophils Percent Auto 1.2 % (0-2); Eosinophils Percent Auto 1.6 % (0-4); Hematocrit 40.4 % (37-47); Hemoglobin 13.3 g/dl (12.0-16.0); Lymphocytes Absolute Auto 0.5 X10*3/uL (1.2-4.9); Lymphocytes Percent Auto 20.2 % (20-40); MANUAL DIFF FLAG SCAN; Mean Corpuscular HGB Conc 32.9 g/dl (31.0-35.0); Mean Corpuscular Hemoglobin 28.9 pg (27.0-33.0); Mean Corpuscular Volume 87.6 fL (80-98); Mean Platelet Volume 11.6 fL (9.4-12.3); Monocytes Absolute Auto 0.4 X10*3/uL (0.1-1.2); Monocytes Percent Auto 14.8 % (2-11); Neutrophils Absolute Auto 1.5 X10*3/uL (2.0-8.3); Neutrophils Percent Auto 62.2 % (45-73); Platelet Count 152 X10*3/uL (160-400); Red Blood Count 4.61 X10*6/uL (4.20-5.50); Red Cell Distribution Width 16.2 % (11.0-16.0); SCAN SMEAR FLAG 1
[2020-11-07 11:30] LABS: White Blood Count 2.4 X10*3/uL (4.8-10.8)
[2020-11-07 12:15] LABS: SLIDE REVIEW VERIFIED
== END 2020-11-07 07:44 | disposition home or self-care (01) ==
LOC: HO.HMGCLDS 07:43
PROVIDERS: PCP Internal Medicine; Visit Provider Internal Medicine Hematology & Oncology
DX: C91.10 Chronic lymphocytic leukemia of B-cell type not having achieved remission (principal)
CPT/HCPCS: 36415; 85025

== ENCOUNTER 2020-11-18 15:23 | Outpatient (REF) | payer BC, SELFPAY ==
--- NOTE | ~2020-11-18 | MM_ITS ---
EXAMINATION: MM SCREENING DIGITAL BREAST TOMOSYNTHESIS, BILATERAL CLINICAL INFORMATION: Screening. Asymptomatic. History CLL. The lifetime risk of breast cancer based on the Tyrer-Cuzick Model is 9%. COMPARISON: Mammography: 11/13/2019 (new baseline). TECHNIQUE: Digital breast tomosynthesis is performed in both the craniocaudal and mediolateral oblique views along with computer-aided detection (CAD). Synthesized 2D images are generated from the tomosynthesis. FINDINGS: There are scattered areas of fibroglandular density (ACR BI-RADS breast composition Category b). There are no significant masses, abnormal calcifications, or other abnormalities. Parenchymal pattern is similar to prior exam. The bilateral axillary adenopathy noted on prior exam is not demonstrated on current study. The skin contours are smooth. MM/MM tomosynthesis screening BI IMPRESSION: No mammographic evidence of malignancy. ASSESSMENT: BI-RADS 1: Negative RECOMMENDATION: Routine annual mammography screening. This patient's information was entered into a reminder system with a target due date for their next mammogram.
== END 2020-11-18 15:24 | disposition home or self-care (01) ==
LOC: HO.MAMMO 15:23
PROVIDERS: PCP Internal Medicine; Visit Provider Advanced Practice Midwife
DX: Z12.31 Encounter for screening mammogram for malignant neoplasm of breast (principal)
CPT/HCPCS: 77063; 77067

== ENCOUNTER 2020-12-05 08:45 | Outpatient (REF) | payer BC, SELFPAY ==
[2020-12-05 11:15] LABS: MANUAL DIFF FLAG NO
[2020-12-05 11:24] LABS: Basophils Percent Auto 1.1 % (0-2); Eosinophils Absolute Auto 0.1 X10*3/uL (0.0-0.4); Eosinophils Percent Auto 1.4 % (0-4); Hematocrit 40.4 % (37-47); Hemoglobin 13.3 g/dl (12.0-16.0); Imm Gran Abs Auto 0.02 X10*3/uL (0.00-0.03); Imm Gran Pct Auto 0.6 % (0.0-0.4); Lymphocytes Absolute Auto 0.4 X10*3/uL (1.2-4.9); Lymphocytes Percent Auto 11.6 % (20-40); Mean Corpuscular HGB Conc 32.9 g/dl (31.0-35.0); Mean Corpuscular Hemoglobin 29.2 pg (27.0-33.0); Mean Corpuscular Volume 88.8 fL (80-98); Mean Platelet Volume 12.1 fL (9.4-12.3); Monocytes Absolute Auto 0.4 X10*3/uL (0.1-1.2); Monocytes Percent Auto 11.6 % (2-11); Neutrophils Absolute Auto 2.6 X10*3/uL (2.0-8.3); Neutrophils Percent Auto 73.7 % (45-73); Platelet Count 147 X10*3/uL (160-400); Red Blood Count 4.55 X10*6/uL (4.20-5.50); Red Cell Distribution Width 15.9 % (11.0-16.0); White Blood Count 3.5 X10*3/uL (4.8-10.8)
== END 2020-12-05 08:46 | disposition home or self-care (01) ==
LOC: HO.HMGCLDS 08:45
PROVIDERS: PCP Internal Medicine; Visit Provider Internal Medicine Hematology & Oncology
DX: C91.10 Chronic lymphocytic leukemia of B-cell type not having achieved remission (principal)
CPT/HCPCS: 36415; 85025

== ENCOUNTER 2021-02-18 13:45 | Outpatient (REF) | payer BC, SELFPAY | END 2021-02-18 13:46 | disposition home or self-care (01) | LOC: HO.LNP 13:45 | PROVIDERS: Visit Provider Physician Assistant Medical | DX: N39.0 Urinary tract infection, site not specified (principal) | CPT/HCPCS: 87086; 87088; 87186 ==

== ENCOUNTER 2021-04-16 13:44 | Outpatient (REF) | payer BC, SELFPAY | END 2021-04-16 13:45 | disposition home or self-care (01) | LOC: HO.LNP 13:44 | PROVIDERS: Visit Provider Internal Medicine | DX: N39.0 Urinary tract infection, site not specified (principal) | CPT/HCPCS: 87086; 87147 ==

== ENCOUNTER 2021-05-21 08:04 | Outpatient (REF) | payer BC, SELFPAY ==
[2021-05-23 23:36] LABS: HPV mRNA E6/E7 rflx Not Detected (Not Detected)
== END 2021-05-21 08:05 | disposition home or self-care (01) ==
LOC: HO.LAB 08:04
PROVIDERS: PCP Internal Medicine; Visit Provider Advanced Practice Midwife
DX: Z01.419 Encounter for gynecological examination (general) (routine) without abnormal findings (principal); N89.8 Other specified noninflammatory disorders of vagina; N95.1 Menopausal and female climacteric states; D22.9 Melanocytic nevi, unspecified
CPT/HCPCS: 87624; 88142

== ENCOUNTER 2021-08-15 09:12 | Outpatient (REF) | payer BC, SELFPAY ==
[2021-08-15 09:43] LABS: COVID-19 Test Positive (Negative)
== END 2021-08-15 09:13 | disposition home or self-care (01) ==
LOC: HO.LAB 09:12
PROVIDERS: Visit Provider Internal Medicine
DX: Z20.822 Contact with and (suspected) exposure to COVID-19 (principal)
CPT/HCPCS: 87635; C9803

== ENCOUNTER 2021-12-01 08:20 | Outpatient (REF) | payer BC, SELFPAY ==
--- NOTE | ~2021-12-01 | MM_ITS ---
EXAMINATION: MM SCREENING DIGITAL BREAST TOMOSYNTHESIS, BILATERAL CLINICAL INFORMATION: Screening. Asymptomatic. Prior personal history CLL. The lifetime risk of breast cancer based on the Tyrer-Cuzick Model is 8%. COMPARISON: Mammography: 11/18/2020, 11/13/2019 (new baseline) TECHNIQUE: Digital breast tomosynthesis is performed in both the craniocaudal and mediolateral oblique views along with computer-aided detection (CAD). Synthesized 2D images are generated from the tomosynthesis. FINDINGS: There are scattered areas of fibroglandular density (ACR BI-RADS breast composition Category b). There are no significant masses, abnormal calcifications, or other abnormalities. Parenchymal pattern is similar to prior studies. There is no developing density or architectural abnormality. The axilla and skin contours are unremarkable. No significant changes. MM/MM tomosynthesis screening BI IMPRESSION: No mammographic evidence of malignancy. ASSESSMENT: BI-RADS 1: Negative RECOMMENDATION: Routine annual mammography screening. This patient's information was entered into a reminder system with a target due date for their next mammogram.
== END 2021-12-01 08:21 | disposition home or self-care (01) ==
LOC: HO.MAMMO 08:20
PROVIDERS: Visit Provider Advanced Practice Midwife
DX: Z12.31 Encounter for screening mammogram for malignant neoplasm of breast (principal)
CPT/HCPCS: 77063; 77067

== ENCOUNTER 2022-01-23 13:57 | Outpatient (REF) | payer BC, SELFPAY | END 2022-01-23 13:58 | disposition home or self-care (01) | LOC: HO.LNP 13:57 | PROVIDERS: Visit Provider Emergency Medicine | DX: R30.0 Dysuria (principal) | CPT/HCPCS: 87086; 87088; 87186 ==

== ENCOUNTER 2022-06-15 07:57 | Outpatient (REF) | payer BC, SELFPAY ==
[2022-06-15 13:03] LABS: Anion Gap 13 (12-20); Blood Urea Nitrogen 15 mg/dL (9-16); Calcium 8.6 mg/dL (8.4-10.2); Carbon Dioxide 25 mmol/L (22-29); Chloride 104 mmol/L (96-108); Estimated Glomerular Filt Rate > 60; Glucose Random 59 mg/dL (60-115); Potassium 3.4 mmol/L (3.3-5.1); Sodium 139 mmol/L (135-145)
== END 2022-06-15 07:58 | disposition home or self-care (01) ==
LOC: HO.HMGCLDS 07:57
PROVIDERS: PCP Internal Medicine; Visit Provider Internal Medicine Hematology & Oncology
DX: C91.10 Chronic lymphocytic leukemia of B-cell type not having achieved remission (principal)
CPT/HCPCS: 36415; 80048

== ENCOUNTER → 2022-08-25 08:01 | Outpatient (BNVA) | payer BC, SELFPAY | PROVIDERS: PCP Internal Medicine; Visit Provider Advanced Practice Midwife ==

== ENCOUNTER 2023-03-05 07:39 | Outpatient (REF) | payer BC, SELFPAY ==
--- NOTE | ~2023-03-05 | MM_ITS ---
EXAMINATION: MM SCREENING DIGITAL BREAST TOMOSYNTHESIS, BILATERAL CLINICAL INFORMATION: Screening. Asymptomatic. Prior personal history CLL. COMPARISON: Mammography: 12/01/2021, 11/18/2020, 11/13/2019 (new baseline) TECHNIQUE: Digital breast tomosynthesis is performed in both the craniocaudal and mediolateral oblique views along with computer-aided detection (CAD). Synthesized 2D images are generated from the tomosynthesis. FINDINGS: There are scattered areas of fibroglandular density (ACR BI-RADS breast composition Category b). There are no suspicious masses, suspicious grouped calcifications, or areas of architectural distortion in either breast. The parenchymal pattern is stable from prior exams. MM/MM tomosynthesis screening BI IMPRESSION: No mammographic evidence of malignancy. ASSESSMENT: BI-RADS BI-RADS 1 - Negative RECOMMENDATION: Routine annual mammography screening. 1 year F/U This examination should not preclude the clinical evaluation of a suspicious palpable abnormality. This patient's information was entered into a reminder system with a target due date for their next mammogram.
== END 2023-03-05 07:40 | disposition home or self-care (01) ==
LOC: HO.MAMMO 07:39
PROVIDERS: PCP Internal Medicine; Visit Provider Advanced Practice Midwife
DX: Z12.31 Encounter for screening mammogram for malignant neoplasm of breast (principal)
CPT/HCPCS: 77063; 77067

== ENCOUNTER → 2023-03-05 07:45 | Outpatient (BNV) | payer BC, SELFPAY | PROVIDERS: PCP Internal Medicine; Visit Provider Radiology Diagnostic Radiology | DX: Z12.31 Encounter for screening mammogram for malignant neoplasm of breast (principal) | CPT/HCPCS: 77063; 77067 ==

== ENCOUNTER 2023-10-05 08:09 | Outpatient (AMB) | payer BC, SELFPAY ==
--- NOTE | 2023-10-05 08:11 | A.OFFVIS_ITS ---
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 She is doing well with no concerns. 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 Currently sexually active. Denies any vaginal dryness or irritation. STI testing offered; she declines. Last pap smear; 2021. Last mammogram; 2022. Colonoscopy is UTD. Denies any family history of ovarian or colon cancer. breast cancer-M. aunt. [facility] Medical History (Updated 10/05/23 @ 08:13 by Scarlet Barron CNM) Herpes simplex CLL (chronic lymphocytic leukemia) Surgical History (Updated 10/05/23 @ 08:16 by Susan Chisholm [facility]) History of endometrial ablation History of bone marrow biopsy Hx of section Family History Maternal Aunt History of breast cancer Social History Are you a primary manager home healthcare to a significant other at home: No Do you presently have visiting nurse or other home services: No Patient Tobacco Use Status: Never used Tobacco Current occupational status: employed 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 Sexual orientation: Straight/Heterosexual Gender identity: Female Female Reproductive History Menstrual Total pregnancies: 2 Full term: 2 Number of Living Children: 2 Date of last pap smear: 05/21/21 (neg pap and hpv) Date of Mammogram: 03/05/23 (Birad 1) Review of Systems Const All systems reviewed & are unremarkable except as noted in HPI and below Reports as per HPI Eyes Reports no additional complaints ENT Reports no additional complaints Card Reports no additional complaints Resp Reports no additional complaints GI Reports as per HPI and Reports no additional complaints Reports as per HPI Musc Reports no additional complaints Skin/Breast Reports as per HPI Neuro Reports no additional complaints Psych Reports no additional complaints Endo Reports no additional complaints Sandro/Lymph Reports no additional complaints Aller/Immun Reports no additional complaints Physical Exam Const General: cooperative, healthy appearing, no acute distress, well developed and alert Orientation/consciousness: patient oriented x3 HEENT Head: Yes normal to inspection Eyes General: appearance normal, both eyes and all related structures Neck Neck: Yes normal visual inspection Thyroid: Thyroid normal Chest Chest palpation & inspection: normal inspection of the chest and other (no puckering, dimpling, peau de orange, retraction, discharge, masses) Breast/axilla inspection: normal inspection of the breasts Breast/axilla palpation: normal palpation of the breasts Resp Effort & Inspection: normal respiratory effort GI Inspection: Yes normal to inspection Palpation (GI): Soft to palpation Rectal Exam - Female: deferred General: Yes bladder normal to palpation External Female Exam: normal external appearance and normal appearance of the urethra Speculum Exam - Vagina: normal appearance of the vagina, normal palpation, normal vaginal discharge and vagina atrophic Speculum Exam - Cervix: normal appearance of the cervix and normal palpation Bimanual exam- vagina & uterus: normal bimanual exam, normal palpation, uterine size normal, bladder normal to palpation, normal palpation and non-tender Bimanual Exam- Adnexa, other: no masses Skin General skin exam: no rashes or lesions noted Rashes: no rashes Neuro General: patient oriented x3 Cognition (Neuro): normal cognition Extrem General: Yes normal to inspection Psych Attitude: cooperative Thought process: Normal thought process present Assessment & Plan Assessment & Plan (1) Encounter for well woman exam with routine gynecological exam: Code(s): Z01.419 - Encounter for gynecological examination (general) (routine) without abnormal findings Category: Medical Plan Discussed: Current recommendations for pap smears per ASCCP guidelines. Breast awareness, periodic self breast exams and yearly mammogram. Maintain a healthy lifestyle, well balanced diet including Calcium 1,200 mg and Vitamin D 600 IU daily, and routine exercise. Scheduled follow up with dermatology for skin surveillance. Check with primary care when colonoscopy is due. Contact the office with any postmenopausal bleeding. Patient verbalizes understanding and agrees to the plan of care. She was given opportunity to ask questions and all questions were answered to the best of my ability. RTO in 1 year for annual rpg programmer analyst exam. This note is constructed using voice recognition software. While every effort has been made to ensure accuracy, wax machine operator errors may have been included. Orders: Orders MM tomosynthesis screening BI Today Z12.31 - Encounter for screening mammogram for malignant neoplasm of breast Coding Level of Care Code Est Pt Prev Care 40-64y(64092) Diagnoses Encounter for well woman exam with routine gynecological exam Z01.419
[2023-10-05 08:12] VITALS: BP 112/70; BMI 22.5
== END 2023-10-05 08:34 | disposition home or self-care (01) ==
PROVIDERS: PCP Internal Medicine; Visit Provider Advanced Practice Midwife
DX: Z01.419 Encounter for gynecological examination (general) (routine) without abnormal findings (principal)
CPT/HCPCS: 99396

== ENCOUNTER → 2023-10-05 08:09 | Outpatient (BNVA) | payer BC, SELFPAY | PROVIDERS: PCP Internal Medicine; Visit Provider Advanced Practice Midwife ==

== ENCOUNTER 2024-03-10 07:35 | Outpatient (REF) | payer BC, SELFPAY | END 2024-03-10 07:36 | disposition home or self-care (01) | LOC: HO.MAMMO 07:35 | PROVIDERS: PCP Internal Medicine; Visit Provider Internal Medicine | DX: Z12.31 Encounter for screening mammogram for malignant neoplasm of breast (principal) | CPT/HCPCS: 77063; 77067 ==

== ENCOUNTER → 2024-03-10 07:45 | Outpatient (BNV) | payer BC, SELFPAY | PROVIDERS: PCP Internal Medicine; Visit Provider Internal Medicine | DX: Z12.31 Encounter for screening mammogram for malignant neoplasm of breast (principal) | CPT/HCPCS: 77063; 77067 ==

== ENCOUNTER 2024-03-10 14:47 | Outpatient (AMB) | payer BC, SELFPAY ==
--- NOTE | 2024-03-10 15:42 | MHC.OFFWIV ---
Intake Vital Signs 03/10/24 15:43 Weight 125 lb BP 118/72 Blood Pressure Location Rt brachial Position Sitting Pulse 56 Pulse Source Pulse Oximeter Temp 97.8 F Temp Source Oral Pulse Oximetry (%) 100 Oxygen Delivery Method Room Air Intake Visit Reasons: EP Sinus infection? Intake Note: Patient here for post nasal drip and sinus pressure that started 1 week ago. Patient Tobacco Use Status: Never used Tobacco Allergies sulfamethoxazole [From Bactrim] Allergy (Severe, Verified 03/10/24 15:43) rash trimethoprim [From Bactrim] Allergy (Severe, Verified 03/10/24 15:43) rash codeine [Codeine] Allergy (Unknown, Verified 03/10/24 15:43) RASH cephalexin Adverse Reaction (Mild, Verified 03/10/24 15:44) rash Do you need a note to return to daycare/school/sports/work: No HPI HPI Comments History of Present Illness Details Patient is a 58yo F who presents to office with concern of sinus infection She has hx of leukemia in remission No sick contacts States 1 week of sinus congestion Blowing nose a lot without sinus pressure No ST, ear pain, fever or chills Minimal dry cough which she contributes to post nasal drip States taking tylenol cold and sinus with some relief No other complaints PFSH Medical History (Updated 03/10/24 @ 15:59 by Mary Jane Dee PA-C) Herpes simplex CLL (chronic lymphocytic leukemia) Surgical History (Updated 10/05/23 @ 08:16 by URBA Ramirez) History of endometrial ablation History of bone marrow biopsy Hx of section Family History Maternal Aunt History of breast cancer Social History Are you a primary point of care specialist to a significant other at home: No Do you presently have visiting nurse or other home services: No Patient Tobacco Use Status: Never used Tobacco Current occupational status: employed 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 Sexual orientation: Straight/Heterosexual Gender identity: Female Review of Systems Const Denies chills, Denies fatigue, Denies fever(s) and Reports headache(s) Eyes Denies change in vision ENT Denies otalgia, Reports headache(s), Reports nasal discharge, Denies sinus pain and Denies sore throat Card Denies dyspnea Resp Reports cough and Denies dyspnea Musc Denies myalgias Neuro Reports headache(s) Endo Denies fatigue Physical Exam Vital Signs: Last Vital Signs Temp 97.8 F 03/10/24 15:43 Pulse 56 03/10/24 15:43 BP 118/72 03/10/24 15:43 Pulse Ox 100 03/10/24 15:43 Oxygen Delivery Method Room Air 03/10/24 15:43 General: Non-toxic, NAD. Speaking full sentences. Skin: Warm dry throughout Eye: EOMI HENT: Airway patent. Uvula midline. No pharyngeal erythema or edema. No FURNITURE SERVICER. nasal turbinant slight edema without significant erythema. No sinus tenderness to palpation Bilateral canals clear. TM non-erythematous, non-bulging. No TM perforation or hemotympanum noted. Respiratory: CTA bilaterally. No wheezes, rales or rhonchi Cardiac: RRR. No murmur MSK: Full ROM extremities. Neurology: Alert. No aphasia or facial droop. Gait without abnormality Psych: Good mood and affect Assessment & Plan Assessment & Plan (1) Viral sinusitis: Code(s): J32.9 - Chronic sinusitis, unspecified; B97.89 - Other viral agents as the cause of diseases classified elsewhere Plan: Patient seen and evaluated She has had symptoms x 7 days and there is nothing indicating bacterial infection No sinus tenderness on exam Discussed nasal steroid and continue decongestant Call office with concerns Pt gave verbal understanding and had no additional questions or concerns prior to discharge Pt decined nasal swab and will monitor for bacterial s/s Medications: New fluticasone propionate 50 mcg/actuation (Flonase Allergy Relief) administer into each nostril 2 sprays intranasal DAILY 16 grams 0RF Coding Level of Care Code Est Pt Level 3 (38723) Diagnoses Viral sinusitis J32.9; B97.89
[2024-03-10 15:43] VITALS: BP 118/72; PULSE 56; TEMP 36.6; O2SAT 100
== END 2024-03-10 16:02 | disposition home or self-care (01) ==
PROVIDERS: PCP Internal Medicine; Visit Provider Physician Assistant
DX: J32.9 Chronic sinusitis, unspecified (principal); B97.89 Other viral agents as the cause of diseases classified elsewhere

== ENCOUNTER 2024-04-25 08:10 | Outpatient (REF) | payer BC, SELFPAY ==
[2024-04-25 14:47] LABS: Influenza A PCR POSITIVE (Negative); Influenza B PCR NEGATIVE (Negative); Resp Syncy Virus RNA Qual PCR NEGATIVE (Negative); SARS COV2 PCR INHOUSE NEGATIVE (Negative)
== END 2024-04-25 08:11 | disposition home or self-care (01) ==
LOC: HO.LAB 08:10
PROVIDERS: PCP Internal Medicine; Visit Provider Physician Assistant
DX: J22 Unspecified acute lower respiratory infection (principal)
CPT/HCPCS: 0241U

== ENCOUNTER 2024-04-25 08:10 | Outpatient (AMB) | payer BC, SELFPAY ==
--- NOTE | 2024-04-25 09:04 | MHC.OFFWIV ---
Intake Vital Signs 04/25/24 09:05 Weight 125 lb BP 112/68 Blood Pressure Location Rt brachial Position Sitting Pulse 71 Pulse Source Pulse Oximeter Temp 98.7 F Temp Source Oral Pulse Oximetry (%) 98 Oxygen Delivery Method Room Air Intake Visit Reasons: EP cold, fever, severe cough, congested Intake Note: Patient here for cough, fever, congestion which started . Patient Tobacco Use Status: Never used Tobacco Allergies sulfamethoxazole [From Bactrim] Allergy (Severe, Verified 04/25/24 09:06) rash trimethoprim [From Bactrim] Allergy (Severe, Verified 04/25/24 09:06) rash codeine [Codeine] Allergy (Unknown, Verified 04/25/24 09:06) RASH cephalexin Adverse Reaction (Mild, Verified 04/25/24 09:06) rash Do you need a note to return to daycare/school/sports/work: No HPI HPI Comments History of Present Illness Details History - The patient is a 59-year-old female presenting with persistent cough and respiratory symptoms. - Symptoms began five days ago, following exposure to an individual with cold symptoms. - She exhibits a severe cough causing discomfort and previously experienced febrile episodes from 4 days ago and they resolved 2 days ago. - shortness of breath increases during nocturnal periods despite decongestant usage, accompanied by increased thirst indicative of potential dehydration. - Complains of ear pain and fullnes. - Diarrheal symptoms arose x 1 episode, reminiscent of prior COVID-19 encounters. - A leukemia history is relevant, with no present oncological treatment; two years post-chemotherapy status is noted. - Past therapeutic interventions for COVID-19 with Paxlovid but it made her feel more sick so she stopped it early. Physical Exam General: Cooperative, healthy appearing, comfortable and no acute distress Orientation/consciousness: Patient oriented x3 Limitations: Cannot lift head all the way Head: Normal to inspection Ears: Hearing grossly normal bilaterally, external ears normal and TM's normal bilaterally, Nose: Normal external nose present, Normal nares present and No nasal discharge present Face and sinus: Normal facial exam and Yes sinuses nontender Mouth: Normal oral and palatal mucosa present and moist mucous membranes Throat: Yes tonsils normal, Yes uvula midline. Posterior oropharynx erythema Eyes: Appearance normal, both eyes and all related structures Neck: Normal visual inspection Respiratory: Clear to auscultation bilaterally. Normal respiratory effort, able to speak in complete sentences, no respiratory distress, not tachypneic, no tripod positioning and no use of accessory muscles Cardiovascular: Regular rate and rhythm. Normal S1 and S2 Skin: No rashes or lesions noted Neuro: Patient oriented x3 Extremities: Normal to inspection and Yes no clubbing, cyanosis or edema [facility] Medical History (Updated 04/25/24 @ 09:45 by Maria Teresa Quiroz PA-C) Herpes simplex CLL (chronic lymphocytic leukemia) Surgical History (Updated 10/05/23 @ 08:16 by RUBA Ramirez) History of endometrial ablation History of bone marrow biopsy Hx of section Family History Maternal Aunt History of breast cancer Social History Are you a primary childcare center director to a significant other at home: No Do you presently have visiting nurse or other home services: No Patient Tobacco Use Status: Never used Tobacco Current occupational status: employed 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 Sexual orientation: Straight/Heterosexual Gender identity: Female Review of Systems Const All systems reviewed & are unremarkable except as noted in HPI and below Physical Exam Vital Signs: Last Vital Signs Temp 98.7 F 04/25/24 09:05 Pulse 71 04/25/24 09:05 BP 112/68 04/25/24 09:05 Pulse Ox 98 04/25/24 09:05 Oxygen Delivery Method Room Air 04/25/24 09:05 Assessment & Plan Assessment & Plan (1) Lower respiratory infection (e.g., bronchitis, pneumonia, pneumonitis, pulmonitis): Code(s): J22 - Unspecified acute lower respiratory infection Plan: Testing for influenza, COVID-19, and RSV was performed to identify the causative agent of symptoms, influenced by prevalent viruses and clinical suspicion. Due to the patient's immunocompromised status from leukemia history, greater symptomatic intensity is expected. Symptom management will involve Johana D in the AM and Benadryl in the PM to relieve congestion and promote rest, ibuprofen to reduce throat inflammation, and Sepacol lozenges for throat soothing. Alkalol nasal wash and Nasalcort will address nasal symptoms. Adequate hydration is crucial to prevent dehydration. Patient was informed and verbally consented to the use of an ambient scribe for clinic note documentation during this visit Orders: Orders SARS-CoV2/FLU/RSV Today J22 - Unspecified acute lower respiratory infection Coding Level of Care Code Est Pt Level 3 (20155) Diagnoses Lower respiratory infection (e.g., bronchitis, pneumonia, pneumonitis, pulmonitis) J22
[2024-04-25 09:05] VITALS: BP 112/68; PULSE 71; TEMP 37.1; O2SAT 98
== END 2024-04-25 10:18 | disposition home or self-care (01) ==
PROVIDERS: PCP Internal Medicine; Visit Provider Physician Assistant
DX: J22 Unspecified acute lower respiratory infection (principal)

== ENCOUNTER 2024-05-06 02:51 | Emergency (ER) | payer BC, SELFPAY ==
--- NOTE | ~2024-05-06 | XR_ITS ---
CLINICAL HISTORY: cough 1 view chest x-ray. Comparison: CR - CHEST 2 VIEWS [id number] - 12/31/16 15:09 EDT Findings: There is consolidation in the lower lungs. No effusion is seen. Cardiomediastinal silhouette is within normal limits. IMPRESSION: Consolidation in the lower lungs consistent with pneumonia. Follow-up to ensure resolution is recommended. This document has been electronically signed by: Holland Macias MD on 05/06/2024 03:28:22
[2024-05-06 02:58] VITALS: BP 125/71; PULSE 100; RESP 18; TEMP 36.4; O2SAT 93; BMI 21.3
--- NOTE | 2024-05-06 04:00 | ED.URI ---
HPI - URI/Sore Throat General Chief Complaint: Upper Respiratory Symptoms Stated Complaint: flu for wks/luzmaria flu not helping feels worse Time Seen by Provider: 05/06/24 03:58 Source: patient Mode of arrival: ambulatory Limitations: no limitations History of Present Illness ED Provider: HPI Narrative: Patient with influenza diagnose on 04/23/2024 comes here for cough and pain lower rib coughing up mostly mucopurulent phlegm still wheezing no prior history of lung condition does have history of CLL which is stable Related Data Home Medications ?Medication ?Instructions ?Recorded ?Confirmed cholecalciferol (vitamin D3) 50 50 mcg PO DAILY 12/28/19 04/16/21 mcg (2,000 unit) capsule (Vitamin D3) Previous Rx's ?Medication ?Instructions ?Recorded fluticasone propionate 50 2 spray intranasal DAILY #16 grams 03/10/24 mcg/actuation nasal spray,suspension (Flonase Allergy Relief) oseltamivir 75 mg capsule (Tamiflu) 75 mg PO Q12H 5 days #10 caps 04/25/24 benzonatate 200 mg capsule 200 mg PO TID PRN cough #30 caps 05/06/24 cefuroxime axetil 500 mg tablet 500 mg PO BID 10 days #20 tabs 05/06/24 doxycycline hyclate 100 mg tablet 100 mg PO BID #20 tabs 05/06/24 Allergies Allergy/AdvReac Type Severity Reaction Status Date / Time sulfamethoxazole Allergy Severe rash Verified 05/06/24 03:00 [From Bactrim] trimethoprim [From Bactrim] Allergy Severe rash Verified 05/06/24 03:00 codeine [Codeine] Allergy Unknown RASH Verified 05/06/24 03:00 cephalexin AdvReac Mild rash Verified 05/06/24 03:00 Review of Systems Review of Systems: Yes all other systems are reviewed and are negative PMFSH Past Medical History Medical History Herpes simplex CLL (chronic lymphocytic leukemia) Surgical History History of endometrial ablation History of bone marrow biopsy Hx of section Family History Family History Maternal Aunt History of breast cancer Social History Social History Are you a primary landcare officer to a significant other at home: No Do you presently have visiting nurse or other home services: No Patient Tobacco Use Status: Never used Tobacco Smoked in Last 30 Days: No Use of substances other than those prescribed or required for medical reasons: No Advance Directives: No Advance Directives Information Provided: Yes Do you have a plan to hurt others: No Plan Patient : No Current occupational status: employed 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 Oriented X3. No acute distress. Eyes: No pallor or icterus ENT: Pharynx normal. Oral Mucosa moist Neck: Normal inspection. Neck supple. CVS: Normal heart rate and rhythm. Pulses normal. Respiratory: No respiratory distress. Equal air entry bilateral, bilateral crackles at bases and prolonged expiration Abdomen: Soft and nontender. Bowel sounds are present, no mass palpable, no CVA tenderness Skin: Skin warm and dry. Normal skin color. Normal skin turgor. Extremities: No lower extremity edema. No calf tenderness Neuro: Oriented X 3. No motor deficit. No sensory deficit.No cerebellar signs , cranial nerves II-XII intact Medications Administered Discontinued Medications Generic Name Dose Route Start Last Admin Trade Name Freq PRN Reason Stop Dose Admin Ceftriaxone Sodium 1 gm 05/06/24 04:07 05/06/24 04:34 Ceftriaxone Sodium 1 Gm Vial IVPUSH 05/06/24 04:08 1 gm ONCE ONE Administration Sodium Chloride 1,000 mls @ 999 mls/hr 05/06/24 04:07 05/06/24 05:25 Ns IV 05/06/24 05:07 Infused .Q1H1M ONE Infusion Medical Decision Making Medical Decision Making MDM Narrative: Patient with bilateral lower lobe pneumonia likely atypical bacteria patient has received Rocephin in the ER will prescribe doxycycline and cefuroxime patient's vitals are stable saturating 94% at room air Differential Diagnosis Differential Diagnoses: The differential diagnosis associated with the presentation includes Pneumonia/bronchitis/flu Admission/Observation Consideration of admission/observation: Escalation of care including admission/observation considered Lab Data [facility] Lab Attestation statement: I reviewed the patient's lab results. 05/06/24 04:24 05/06/24 04:24 Labs: Lab Results 05/06/24 Range/Units 04:24 WBC 12.9 H (4.8-10.8) X10*3/uL RBC 4.38 (4.20-5.50) X10*6/uL Hgb 12.0 (12.0-16.0) g/dl Hct 34.9 L (37.0-47.0) % MCV 79.7 L (80.0-98.0) fL MCH 27.4 (27.0-33.0) pg MCHC 34.4 (31.0-35.0) g/dl RDW 12.6 (11.0-16.0) % Plt Count 302 (160-400) X10*3/uL MPV 9.7 (9.4-12.3) fL Immature Gran % (Auto) 0.8 H (0.0-0.4) % Neut % (Auto) 85.0 H (45-73) % Lymph % (Auto) 4.1 L (20-40) % Mitchell % (Auto) 9.6 (2-11) % Eos % (Auto) 0.2 (0-4) % Baso % (Auto) 0.3 (0-2) % Lymph # (Auto) 0.5 L (1.2-4.9) X10*3/uL Mitchell # (Auto) 1.2 (0.1-1.2) X10*3/uL Eos # (Auto) 0.0 (0.0-0.4) X10*3/uL Baso # (Auto) 0.0 (0.0-0.2) X10*3/uL Abs Immat Gran (auto) 0.10 H (0.00-0.03) X10*3/uL Absolute Neuts (auto) 10.9 H (2.0-8.3) x10*3/uL Absolute Nucleated RBC 0.000 (0.0-0.012) X10*3/uL Nucleated RBC % (auto) 0.0 (0.0-0.2) /100WBC Sodium 136 (135-145) mmol/L Potassium 3.4 (3.3-5.1) mmol/L Chloride 101 (96-108) mmol/L Carbon Dioxide 20 L (22-29) mmol/L Anion Gap 18 (12-20) BUN 9 (9-16) mg/dL Creatinine 0.63 (0.5-1.4) mg/dL Estim Creat Clear Calc 80.5 Estimated GFR > 60 Random Glucose 119 H (60-115) mg/dL Lactic Acid 1.1 (0.5-2.0) mmol/L Calcium 8.7 (8.4-10.2) mg/dL Total Bilirubin 0.8 (0.0-1.0) mg/dL AST 32 H (5-31) U/L ALT 23 (0-31) U/L Alkaline Phosphatase 137 H (39-117) U/L Total Protein 6.7 (6.5-8.0) g/dL Albumin 3.4 L (3.5-5.0) g/dL Independent Interpretation I performed an independent interpretation of an: Plain X-Ray Radiology Impression Discussion of test interpretation with radiology: I have reviewed the radiologist's reading. Radiologist Impression: [place] [id number] XRay Report Signed Patient: Melanie Whitman MR#: [id number] : 1965 Acct:[id number] Age/Sex: 59 / F ADM Date: 05/06/24 Loc: .ED Attending Dr: Ordering Physician: Generic ED Physician Date of Service: 05/06/24 Procedure(s): XR chest 1V Accession Number(s): [id number] cc: Darlene Rodriguez MD; Generic ED Physician~ CLINICAL HISTORY: cough 1 view chest x-ray. Comparison: CR - CHEST 2 VIEWS [id number] - 12/31/16 15:09 EDT Findings: There is consolidation in the lower lungs. No effusion is seen. Cardiomediastinal silhouette is within normal limits. IMPRESSION: Consolidation in the lower lungs consistent with pneumonia. Follow-up to ensure resolution is recommended. This document has been electronically signed by: Holland Macias MD on 05/06/2024 03:28:22 Discharge Plan Discharge Clinical Impression: Pneumonia Patient Disposition: Home, Self-Care Instructions: Community Acquired Pneumonia (ED) Additional Instructions: Drink plenty of fluids Take antibiotic as prescribed Cough drops as prescribed Follow with your PCP if not better Prescriptions: New doxycycline hyclate 100 mg tablet 100 mg PO BID Qty: 20 0RF cefuroxime axetil 500 mg tablet 500 mg PO BID 10 Days Qty: 20 0RF benzonatate 200 mg capsule 200 mg PO TID PRN (Reason: cough) Qty: 30 0RF No Action oseltamivir [Tamiflu] 75 mg capsule 75 mg PO Q12H 5 Days Qty: 10 0RF cholecalciferol (vitamin D3) [Vitamin D3] 50 mcg (2,000 unit) Capsule 50 mcg PO DAILY fluticasone propionate [Flonase Allergy Relief] 50 mcg/actuation spray,suspension 2 spray intranasal DAILY Qty: 16 0RF Rx Instructions: administer into each nostril Interventions: ED Discharge Assessment Last Done: 05/06/24 06:38 Discharge Date/Time: 05/06/24 06:39 Print Language: Sami
[2024-05-06] MEDS: 0.9 % Sodium Chloride 1,000 ML 999 ML IV (04:28)
[2024-05-06 04:31] LABS: Basophils Percent Auto 0.3 % (0-2); Eosinophils Percent Auto 0.2 % (0-4); Hematocrit 34.9 % (37.0-47.0); Imm Gran Pct Auto 0.8 % (0.0-0.4); Lymphocytes Absolute Auto 0.5 X10*3/uL (1.2-4.9); Lymphocytes Percent Auto 4.1 % (20-40); MANUAL DIFF FLAG NO; Mean Corpuscular HGB Conc 34.4 g/dl (31.0-35.0); Mean Corpuscular Hemoglobin 27.4 pg (27.0-33.0); Mean Corpuscular Volume 79.7 fL (80.0-98.0); Mean Platelet Volume 9.7 fL (9.4-12.3); Monocytes Absolute Auto 1.2 X10*3/uL (0.1-1.2); Monocytes Percent Auto 9.6 % (2-11); Neutrophils Absolute Auto 10.9 x10*3/uL (2.0-8.3); Platelet Count 302 X10*3/uL (160-400); Red Blood Count 4.38 X10*6/uL (4.20-5.50); Red Cell Distribution Width 12.6 % (11.0-16.0); White Blood Count 12.9 X10*3/uL (4.8-10.8)
[2024-05-06] MEDS: cefTRIAXone sodium 1 GM VIAL IVPUSH (04:34)
[2024-05-06 04:44] LABS: Lactic Acid 1.1 mmol/L (0.5-2.0)
[2024-05-06 04:53] LABS: Alanine Aminotransferase 23 U/L (0-31); Albumin Level 3.4 g/dL (3.5-5.0); Anion Gap 18 (12-20); Aspartate Amino Transferase 32 U/L (5-31); Bilirubin Total 0.8 mg/dL (0.0-1.0); Blood Urea Nitrogen 9 mg/dL (9-16); Calcium 8.7 mg/dL (8.4-10.2); Carbon Dioxide 20 mmol/L (22-29); Chloride 101 mmol/L (96-108); Creatinine Clr Calc Pharmacy 80.5; Estimated Glomerular Filt Rate > 60; Glucose Random 119 mg/dL (60-115); Potassium 3.4 mmol/L (3.3-5.1); Sodium 136 mmol/L (135-145); Total Protein 6.7 g/dL (6.5-8.0)
[2024-05-06 05:07] LABS: Alkaline Phosphatase 137 U/L (39-117)
[2024-05-06 06:38] VITALS: BP 111/62; PULSE 76; RESP 17; TEMP 37.7; O2SAT 94
== END 2024-05-06 06:39 | disposition home or self-care (01) ==
PROVIDERS: Emergency Provider Internal Medicine; PCP Internal Medicine
DX: J18.9 Pneumonia, unspecified organism (principal); R05.9 Cough, unspecified; R07.81 Pleurodynia; R11.0 Nausea; Z79.899 Other long term (current) drug therapy
CPT/HCPCS: 36415; 71045; 80053; 83605; 85025; 87040; 96361; 96374; 99284; 99285; J0696

== ENCOUNTER → 2024-05-06 03:02 | Outpatient (BNV) | payer BC, SELFPAY | PROVIDERS: Emergency Provider Internal Medicine; PCP Internal Medicine; Visit Provider Radiology Diagnostic Radiology | DX: R05.9 Cough, unspecified (principal) | CPT/HCPCS: 71045 ==

== ENCOUNTER 2024-05-29 07:44 | Inpatient (IN) | payer BC, SELFPAY ==
--- NOTE | ~2024-05-29 | CT_ITS ---
EXAMINATION: CT CHEST WITHOUT IV CONTRAST INDICATION: bilateral crackles COMPARISON: Comparison is made with the prior examination dated 07/26/2017. Correlation is also made with chest x-rays dating back to 05/06/2024. TECHNIQUE: Helical CT scan of the chest was performed without intravenous contrast. Coronal and sagittal reformatted images were generated and reviewed. This CT exam was performed with one or more of the following dose reduction techniques: automated exposure control, adjustment of the mA and/or kV according to patient size, use of iterative reconstruction technique. DLP: 100 mGy-cm CHEST: THYROID: The thyroid is unremarkable. LUNGS: There are multifocal groundglass and airspace opacities in both lower lobes. Additional small airspace opacities are seen in the right middle lobe and left upper lobe. MEDIASTINUM: There is no mediastinal lymphadenopathy. LANNY: Evaluation of the hilar regions is limited by lack of intravenous contrast material. CARDIOVASCULATURE: The heart is normal in size. There is no pericardial effusion. The thoracic aorta is normal in caliber. DEGREE OF CORONARY CALCIFICATION: none PLEURA: There is no pleural effusion. No pneumothorax. MAIN AIRWAYS: The mainstem bronchi and proximal branches are patent. AXILLA: There is no axillary lymphadenopathy. BONES AND SOFT TISSUES: Unremarkable UPPER ABDOMEN: The visualized portions of the liver, spleen, and adrenals have an unremarkable unenhanced appearance. There is cholelithiasis. CT/CT chest wo IV con IMPRESSION: Multifocal infiltrates in the right middle lobe, left upper lobe, and bilateral lower lobes. Given the persistence of these abnormalities on chest x-ray since 05/06/2024, atypical factious and noninfectious etiologies should be considered. Electronically signed by: Bran Childers MD 05/31/2024 01:05 PM EDT
--- NOTE | ~2024-05-29 | XR_ITS ---
EXAMINATION: XR CHEST CLINICAL INFORMATION: cough COMPARISON: 05/06/2024. TECHNIQUE: 2 views of the chest were obtained. FINDINGS: The cardiac, hilar, and mediastinal contours are normal. There are patchy consolidative opacities in both mid and lower lungs, appear to mainly involve the right middle lobe and lingula. This had a similar appearance on 05/06/2024, although more extensive, and could represent persistent or recurrent bilateral pneumonia. There is no pneumothorax or pleural effusion. There is no focal osseous or soft tissue abnormality. XR/XR chest 2V IMPRESSION: 1. Consolidative opacities in the right middle lobe and lingula, similar to the prior exam although more extensive. Unknown if this represents recurrent or persistent bilateral pneumonia. 2. No effusions. Electronically signed by: Santo Garber MD 05/29/2024 08:33 AM EDT
[2024-05-29 08:09] VITALS: BP 152/76; PULSE 98; RESP 19; TEMP 36.6; O2SAT 98; BMI 20.3
[2024-05-29 08:46] LABS: Basophils Absolute Auto 0.1 X10*3/uL (0.0-0.2); Basophils Percent Auto 0.7 % (0-2); Eosinophils Absolute Auto 0.3 X10*3/uL (0.0-0.4); Eosinophils Percent Auto 1.8 % (0-4); Hematocrit 36.3 % (37.0-47.0); Hemoglobin 12.1 g/dl (12.0-16.0); Imm Gran Pct Auto 2.9 % (0.0-0.4); Lymphocytes Absolute Auto 0.7 X10*3/uL (1.2-4.9); Lymphocytes Percent Auto 5.4 % (20-40); MANUAL DIFF FLAG NO; Mean Corpuscular HGB Conc 33.3 g/dl (31.0-35.0); Mean Corpuscular Hemoglobin 26.9 pg (27.0-33.0); Mean Corpuscular Volume 80.7 fL (80.0-98.0); Mean Platelet Volume 10.5 fL (9.4-12.3); Monocytes Absolute Auto 1.5 X10*3/uL (0.1-1.2); Monocytes Percent Auto 10.8 % (2-11); Neutrophils Absolute Auto 10.6 x10*3/uL (2.0-8.3); Neutrophils Percent Auto 78.4 % (45-73); Platelet Count 339 X10*3/uL (160-400); White Blood Count 13.6 X10*3/uL (4.8-10.8)
[2024-05-29 09:03] LABS: Anion Gap 14 (12-20); Blood Urea Nitrogen 6 mg/dL (9-16); Calcium 8.9 mg/dL (8.4-10.2); Carbon Dioxide 26 mmol/L (22-29); Chloride 100 mmol/L (96-108); Creatinine Clr Calc Pharmacy 76.2; Estimated Glomerular Filt Rate > 60; Glucose Random 139 mg/dL (60-115); Potassium 3.8 mmol/L (3.3-5.1); Sodium 136 mmol/L (135-145)
[2024-05-29 09:25] LABS: Influenza A PCR NEGATIVE (Negative); Influenza B PCR NEGATIVE (Negative); Resp Syncy Virus RNA Qual PCR NEGATIVE (Negative); SARS COV2 PCR INHOUSE NEGATIVE (Negative)
--- NOTE | 2024-05-29 11:02 | ED.GENADULT ---
HPI - General Adult General Chief complaint: General Medical Stated complaint: fever vomiting cough Time Seen by Provider: 05/29/24 11:00 Source: patient and family (patient's ) Mode of arrival: ambulatory Limitations: no limitations History of Present Illness ED Provider: Bambi Sanchez PA-C HPI narrative: Patient is a 59 year old female with a past medical history of chronic lymphocytic leukemia (In remission, not currently being treated) and recent pneumonia (05/06/2024) for which she was prescribed Doxycycline and Cefuroxime, who presents to the ED for fevers, worsening facial pain, n/v, and a productive cough. She states that she finished her antibiotics as prescribed but her symptoms persist and in some ways are worsening. Patient denies any dizziness, lightheadedness, abdominal pain, chills, blurry vision, double vision, loss of vision, chest pain, difficulty breathing, shortness of breath, back pain, night sweats, pain with urination, increased urinary frequency, increased urinary urgency, blood in her urine or stool, syncope or a near syncopal episode, recent trauma or falls, bowel incontinence, bladder incontinence, or any other complaints at this time. Relieving factors: none Exacerbating factors: none Associated symptoms: cough, fever/chills, headaches and nausea/vomiting Treatments prior to arrival: other (doxycycline and cefuroxime) Related Data Home Medications ?Medication ?Instructions ?Recorded ?Confirmed cholecalciferol (vitamin D3) 50 50 mcg PO DAILY 12/28/19 05/29/24 mcg (2,000 unit) capsule (Vitamin D3) vitamin B complex 1 tab PO DAILY 05/29/24 05/29/24 Allergies Allergy/AdvReac Type Severity Reaction Status Date / Time sulfamethoxazole Allergy Severe rash Verified 05/29/24 08:13 [From Bactrim] trimethoprim [From Bactrim] Allergy Severe rash Verified 05/29/24 08:13 codeine [Codeine] Allergy Unknown RASH Verified 05/29/24 08:13 cephalexin AdvReac Mild rash Verified 05/29/24 08:13 Review of Systems Constitutional: Constitutional: Reports no additional constitutional complaints, Denies chills, Reports fever(s), Reports headache(s) and Reports night sweats Eyes: Eyes: Reports no additional eye complaints, Denies blurry vision, Denies change in vision, Denies diplopia, Denies eye discharge, Denies loss of vision and Denies eye pain ENT: Denies dizziness, Reports headache(s) and Reports sinus pain Cardiovascular: Cardiovascular: Reports no additional cardiovascular complaints, Denies chest pain, Denies lightheadedness, Denies Loss of Consciousness and Denies dyspnea Respiratory: Respiratory: Reports no additional respiratory complaints, Reports cough and Denies dyspnea Gastrointestinal: Gastrointestinal: Reports no additional gastrointestinal complaints, Denies abdominal pain, Denies melena, Denies hematochezia, Denies change in bowel habits and Denies change in stool character Genitourinary: Genitourinary: Denies hematuria, Denies urinary frequency, Denies dysuria, Denies urinary incontinence, Denies urinary hesitancy and Denies urinary urgency Musculoskeletal: Musculoskeletal: Reports no additional musculoskeletal complaints, Denies numbness and Denies tingling Neurologic: Denies dizziness, Reports headache(s), Denies loss of vision, Denies numbness and Denies tingling Psychiatric: Psychiatric: Reports no additional psychiatric complaints Endocrine: Endocrine: Reports no additional endocrine complaints Hematologic/Lymphatic: Hematologic/Lymphatic: Reports no additional hematologic/lymphatic complaints Allergic/Immunologic: Allergic/Immunologic: Reports no additional allergic/immunologic complaints [facility] Past Medical History Attestation statement: The following information was validated with the patient. (all information validated with the patient's ) Source: old records reviewed, obtained from family (patient's provided additional history and confirmed the history provided by the patient) and nursing notes reviewed Medical History Herpes simplex CLL (chronic lymphocytic leukemia) Surgical History History of endometrial ablation History of bone marrow biopsy Hx of section Family History Family History Maternal Aunt History of breast cancer Social History Social History Are you a primary manager of care to a significant other at home: No Do you presently have visiting nurse or other home services: No Patient Tobacco Use Status: Never used Tobacco Advance Directives: No Advance Directives Information Provided: Yes Current occupational status: employed 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 Sexual orientation: Straight/Heterosexual Gender identity: Female Physical Exam ED Vital Signs: Vital Signs - 24 hr 05/29/24 08:09 Temperature 98 F Pulse Rate 98 Respiratory Rate 19 Blood Pressure 152/76 H Pulse Oximetry 98 Oxygen Delivery Method Room Air BMI result Body Mass Index 20.3 Const General: cooperative, no acute distress, alert and awake Nutritional Appearance: well nourished Orientation/consciousness: patient oriented x3 Limitations: no limitations HENMT Head: Yes normal to inspection and Yes atraumatic Ears: hearing grossly normal bilaterally and external ears normal General nose exam: Normal external nose present, no nasal discharge noted and no epistaxis Face and sinus: Yes normal facial exam, No abrasion and No laceration Mouth: Normal oral and palatal mucosa present, no drooling and no muffled voice Eyes General: appearance normal, both eyes and all related structures Periorbital: periorbital findings normal Eyelids: Yes eyelids normal Conjunctivae: conjunctivae normal Pupils: Equal, round and reactive pupils present EOM: EOMs intact bilaterally Neck Neck: Yes normal visual inspection, Yes full ROM and Yes no lymphadenopathy Chest Chest palpation & inspection: normal inspection of the chest Resp Effort & Inspection: normal respiratory effort and able to speak in complete sentences Auscultation: rales diffuse GI Inspection: Yes normal to inspection Neuro General: patient oriented x3, moves all extremities and CN's II-XI intact bilaterally Cranial nerves: Yes Equal, round and reactive pupils present Cognition (Neuro): normal cognition Extrem General: Yes normal to inspection, Yes full ROM and Yes capillary refill normal Psych Appearance: grossly normal Mental Status: mental status grossly normal Affect: normal affect Attitude: cooperative Thought process: Normal thought process present Thought content: Normal thought content present Insight: Good insight present (Psych) Medications Administered Generic Name Dose Route Start Last Admin Trade Name Freq PRN Reason Stop Dose Admin Cefepime HCl 2 gm in 50 mls @ 100 mls/hr 05/29/24 13:00 05/29/24 13:27 Maxipime IV 100 mls/hr Q8H CHRISTIANO Administration Discontinued Medications Generic Name Dose Route Start Last Admin Trade Name Freq PRN Reason Stop Dose Admin Vancomycin HCl 1,000 mg/ 270 mls @ 270 mls/hr 05/29/24 11:50 05/29/24 13:43 Sodium Chloride IV 05/29/24 12:49 270 mls/hr ONCE ONE Administration Medical Decision Making Medical Decision Making MDM Narrative: Patient is a 59 year old female with a past medical history of chronic lymphocytic leukemia (In remission, not currently being treated) and recent pneumonia (05/06/2024) for which she was prescribed Doxycycline and Cefuroxime, who presents to the ED for fevers, worsening facial pain, n/v, and a productive cough. Patient's physical exam was as noted in the physical exam portion of this note. Patient's blood work showed an elevated WBC count of 13.6 but otherwise unremarkable. Patient's chest x-ray showed worsening bilateral PNA. Given the patient has recently completed cefuroxime + doxycycline and has not improved with evidence of worsening PNA, will treat with IV Zosyn and Vancomycin and admit the patient. I spoke to the hospitalist team who agreed to admission. Patient's clinical presentation is most consistent with persistent PNA and not sepsis (@1151). I explained my physical exam findings as well as all test results to the patient and the patient's . I answered all questions asked by the patient and the patient's . Patient and the patient's verbalized agreement and understanding with this treatment plan and admission. Differential Diagnosis Differential Diagnoses: The differential diagnosis associated with the presentation includes PNA Admission/Observation Consideration of admission/observation: Escalation of care including admission/observation considered Patient admitted as noted in the MDM Rationale portion of this note. Consult Healthcare Provider Management of the patient was discussed with: Hospitalist (agreed to admission as noted in the MDM Rationale portion of this note.) Lab Data [facility] Lab Attestation statement: I reviewed the patient's lab results. My interpretation of these results are in the MDM Rationale portion of this note. 05/29/24 08:30 05/29/24 08:30 Labs: Lab Results 05/29/24 05/29/24 05/29/24 Range/Units 08:30 13:07 13:18 WBC 13.6 H (4.8-10.8) X10*3/uL RBC 4.50 (4.20-5.50) X10*6/uL Hgb 12.1 (12.0-16.0) g/dl Hct 36.3 L (37.0-47.0) % MCV 80.7 (80.0-98.0) fL MCH 26.9 L (27.0-33.0) pg MCHC 33.3 (31.0-35.0) g/dl RDW 14.0 (11.0-16.0) % Plt Count 339 (160-400) X10*3/uL MPV 10.5 (9.4-12.3) fL Immature Gran % (Auto) 2.9 H (0.0-0.4) % Neut % (Auto) 78.4 H (45-73) % Lymph % (Auto) 5.4 L (20-40) % [place] % (Auto) 10.8 (2-11) % Eos % (Auto) 1.8 (0-4) % Baso % (Auto) 0.7 (0-2) % Lymph # (Auto) 0.7 L (1.2-4.9) X10*3/uL [place] # (Auto) 1.5 H (0.1-1.2) X10*3/uL Eos # (Auto) 0.3 (0.0-0.4) X10*3/uL Baso # (Auto) 0.1 (0.0-0.2) X10*3/uL Abs Immat Gran (auto) 0.40 H (0.00-0.03) X10*3/uL Absolute Neuts (auto) 10.6 H (2.0-8.3) x10*3/uL Absolute Nucleated RBC 0.000 (0.0-0.012) X10*3/uL Nucleated RBC % (auto) 0.0 (0.0-0.2) /100WBC Sodium 136 (135-145) mmol/L Potassium 3.8 (3.3-5.1) mmol/L Chloride 100 (96-108) mmol/L Carbon Dioxide 26 (22-29) mmol/L Anion Gap 14 (12-20) BUN 6 L (9-16) mg/dL Creatinine 0.66 (0.5-1.4) mg/dL Estim Creat Clear Calc 76.2 Estimated GFR > 60 Random Glucose 139 H (60-115) mg/dL Lactic Acid 0.9 (0.5-2.0) mmol/L Calcium 8.9 (8.4-10.2) mg/dL Magnesium 2.0 (1.6-2.6) mg/dL Urine Color Yellow Urine Appearance Clear Urine pH 7.5 (5.0-9.0) Ur Specific [place] 1.010 (1.005-1.025) Urine Protein 30 (1+) H (Neg-Trace) mg/dL Urine Glucose (UA) Negative (Negative) mg/dL Urine Ketones Negative (Negative) mg/dL Urine Blood Trace H (Negative) Urine Nitrite Negative (Negative) Ur Leukocyte Esterase Moderate (2+) H (Negative) Urine RBC 3-5 H (0-2) /HPF Urine WBC 6-10 H (0-5) /HPF Ur Squamous Epith Cells 0-2 (0-2) /HPF Urine Bacteria None Seen (None Seen) Hyaline Casts 0-2 (0-2) /LPF Influenza Type A (PCR) NEGATIVE (Negative) Influenza Type B (PCR) NEGATIVE (Negative) RSV RNA Qual (PCR) NEGATIVE (Negative) SARS-CoV-2 RNA (RT-PCR) NEGATIVE (Negative) Independent Interpretation I performed an independent interpretation of an: Plain X-Ray Interpretation: My interpretation is in agreement with the radiologist's impression of this imaging study. EXAMINATION: XR CHEST CLINICAL INFORMATION: cough COMPARISON: 05/06/2024. TECHNIQUE: 2 views of the chest were obtained. FINDINGS: The cardiac, hilar, and mediastinal contours are normal. There are patchy consolidative opacities in both mid and lower lungs, appear to mainly involve the right middle lobe and lingula. This had a similar appearance on 05/06/2024, although more extensive, and could represent persistent or recurrent bilateral pneumonia. There is no pneumothorax or pleural effusion. There is no focal osseous or soft tissue abnormality. XR/XR chest 2V IMPRESSION: 1. Consolidative opacities in the right middle lobe and lingula, similar to the prior exam although more extensive. Unknown if this represents recurrent or persistent bilateral pneumonia. 2. No effusions. Electronically signed by: Santo Garber MD 05/29/2024 08:33 AM EDT Dictated By: Santo Garber MD Signed By: Electronically signed by Santo Garber MD 05/29/24 0844 Radiology Impression Discussion of test interpretation with radiology: I have reviewed the radiologist's reading. Independent Historian Clinical information obtained from an independent historian. History obtained from or confirmed by: Spouse (patient's provided additional history and confirmed the history provided by the patient.) Critical Care Time Critical Care Time Critical Care Time: Yes Total Critical Care Time: 37 Attestation: I spent 37 minutes of Critical Care Time with this patient. This does not include time spent on separately reported billable procedures. Discharge Plan Discharge Clinical Impression: Pneumonia Patient Disposition: Admitted As Inpatient
--- NOTE | 2024-05-29 11:55 | PM.IMHP ---
History of Present Illness Date of Service: 05/29/24 Attending physician on admission: Cornel Lim Chief Complaint: worsening cough 59-year-old female with history of CLL in remission following with [facility] and recently diagnosed community-acquired pneumonia completed course of cefuroxime and doxycycline times 10 days presents to the ER today for evaluation of productive cough, nasal congestion, sinus pressure and fever of 101.5 last night. Following her course of antibiotics for pneumonia, she states that she had felt well for about 3 days and then symptoms recurred. She denies any known sick contacts at home. No sore throat, headaches, abdominal pain, nausea, vomiting, diarrhea, shortness of breath, or chest pain. She denies any alcohol use or illicit drug use. No cigarette smoking. Denies any recent travel. She reports that she has been in remission for her CLL for the last 2 years. On arrival, she is afebrile without hypoxia. Heart rate slightly elevated at 98. There is a leukocytosis of 13.6. Renal function baseline, electrolyte levels normal. Negative for COVID-19, flu, RSV. Chest x-ray shows consolidative opacities in the right middle lobe and lingula similar to prior exam though more extensive, possibly recurrent versus persistent bilateral pneumonia. She will begin admitted for further management of community-acquired pneumonia with sepsis. Review of Systems Review of Systems: Yes all other systems are reviewed and are negative [facility] Medical History Herpes simplex CLL (chronic lymphocytic leukemia) Family History Maternal Aunt History of breast cancer Surgical History History of endometrial ablation History of bone marrow biopsy Hx of section Social History Are you a primary farm or ranch animal caretaker to a significant other at home: No Do you presently have visiting nurse or other home services: No Patient Tobacco Use Status: Never used Tobacco Advance Directives: No Advance Directives Information Provided: Yes Current occupational status: employed 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 Sexual orientation: Straight/Heterosexual Gender identity: Female Meds Allergies Allergy/AdvReac Type Severity Reaction Status Date / Time sulfamethoxazole Allergy Severe rash Verified 05/29/24 08:13 [From Bactrim] trimethoprim [From Bactrim] Allergy Severe rash Verified 05/29/24 08:13 codeine [Codeine] Allergy Unknown RASH Verified 05/29/24 08:13 cephalexin AdvReac Mild rash Verified 05/29/24 08:13 Active Medications: Current Medications Piperacillin Sod/Tazobactam (Sod 3.375 gm/ Sodium Chloride) 50 mls @ 100 mls/hr IV ONCE ONE Stop: 05/29/24 12:19 Vancomycin HCl 1,000 mg/ (Sodium Chloride) 270 mls @ 270 mls/hr IV ONCE ONE Stop: 05/29/24 12:49 Home Medications ?Medication ?Instructions ?Recorded ?Confirmed ?Last Taken ?Type cholecalciferol (vitamin D3) 50 50 mcg PO DAILY 12/28/19 05/29/24 2 Weeks Ago History mcg (2,000 unit) capsule (Vitamin ~05/15/24 D3) vitamin B complex 1 tab PO DAILY 05/29/24 05/29/24 2 Weeks Ago History ~05/15/24 Physical Exam Vital Signs and Narrative: Vital Signs: Last Vital Signs Temp 98 F 05/29/24 08:09 Pulse 98 05/29/24 08:09 Resp 19 05/29/24 08:09 BP 152/76 H 05/29/24 08:09 Pulse Ox 98 05/29/24 08:09 O2 Del Method Room Air 05/29/24 08:09 BMI result Body Mass Index 20.3 Constitutional - Awake and Alert, No apparent distress Eyes - PERRLA, EOMI Cardiovascular - S1S2, RRR, No edema Respiratory - Normal lung expansion, Normal respiratory effort, No respiratory distress, b/l rhonchi lower lobes Gastrointestinal - NT / ND; +BS; No rebound or guarding Extremities - no calf tenderness bilaterally, no swelling Skin - Warm/Dry Neurological - Alert & oriented x3 Psychological - Appropriate affect Results Labs 05/29/24 08:30 05/29/24 08:30 Labs: Laboratory Results - last 24 hr 05/29/24 08:30 MCV 80.7 MCH 26.9 L MCHC 33.3 RDW 14.0 Plt Count 339 MPV 10.5 Immature Gran % (Auto) 2.9 H Neut % (Auto) 78.4 H Lymph % (Auto) 5.4 L [place] % (Auto) 10.8 Eos % (Auto) 1.8 Baso % (Auto) 0.7 Lymph # (Auto) 0.7 L [place] # (Auto) 1.5 H Eos # (Auto) 0.3 Baso # (Auto) 0.1 Abs Immat Gran (auto) 0.40 H Absolute Neuts (auto) 10.6 H Absolute Nucleated RBC 0.000 Nucleated RBC % (auto) 0.0 Anion Gap 14 Estim Creat Clear Calc 76.2 Estimated GFR > 60 Random Glucose 139 H Calcium 8.9 Magnesium 2.0 Influenza Type A (PCR) NEGATIVE Influenza Type B (PCR) NEGATIVE RSV RNA Qual (PCR) NEGATIVE SARS-CoV-2 RNA (RT-PCR) NEGATIVE Imaging Radiologist's Impressions: Impressions Chest X-Ray 05/29/24 08:14 IMPRESSION: 1. Consolidative opacities in the right middle lobe and lingula, similar to the prior exam although more extensive. Unknown if this represents recurrent or persistent bilateral pneumonia. 2. No effusions. Electronically signed by: Santo Garber MD 05/29/2024 08:33 AM EDT RP Assessment and Plan (1) Sepsis: Status: Acute (2) Pneumonia: Status: Inactive Plan 59-year-old female with [facility] of C[facility] HSV and recently diagnosed community-acquired pneumonia completed course of cefuroxime and doxycycline times 10 days admitted for further management worsening CAP having failed outpt abx with sepsis. # community-acquired pneumonia with sepsis -leukocytosis 13.6, mildly tachycardic at 98. Lactic acid and blood cultures pending -CXR shows consolidative opacities in the right middle lobe and lingula similar to prior exam though more extensive, possibly representing recurrent versus persistent bilateral pneumonia -failed outpatient therapy with cefuroxime and doxycycline -given history of CLL and immunocompromised status, we will cover broadly with cefepime and vancomycin (initiated 05/29) -strep pneumo antigen, Legionella antigen, sputum culture, and MRSA nasal swab pending -follow CBC, cultures # CLL -in remission, follows with [facility] DVT prophylaxis-Lovenox Full code Patient requires inpatient stay at least 2 midnights for management of community-acquired pneumonia with sepsis having failed outpatient therapies requiring IV antibiotics and close monitoring of hemodynamics Quality Stroke Does the patient have a stroke diagnosis?: No VTE Prior VTE?: No VTE Risk Level:: Medical - moderate - high VTE Device Contraindication: Treatment Not Indicated VTE Drug Contraindication: N/A - Med Ordered
--- NOTE | 2024-05-29 12:48 | PHA.MEDREC ---
Pharmacy Consult ? Medication Reconciliation Pharmacy has completed the medication reconciliation. Spoke with pt at bedside. Pt last took both medications 2 weeks ago.
[2024-05-29 13:25] LABS: Appearance Urine Clear; Color Urine Yellow; Glucose Urine UA Negative (Negative); Leukocyte Esterase Urine Moderate (2+) (Negative); Nitrite Urine Negative (Negative); PH 7.5 (5.0-9.0); UMIC TRIGGER UACC YES; Urine Blood Trace (Negative); Urine Ketones Negative (Negative); Urine Protein 30 (1+) mg/dL (Neg-Trace)
[2024-05-29] MEDS: cefEPime HCl/D5W 2 GM/50 ML PIGGYBACK IV ×2 (13:27→21:34)
[2024-05-29 13:32] LABS: Bacteria Urine None Seen (None Seen); Hyaline Casts Urine 0-2 /LPF (0-2); Squamous Epithelial Cell Urine 0-2 /HPF (0-2); UACC Culture Trigger YES
[2024-05-29 13:39] LABS: Lactic Acid 0.9 mmol/L (0.5-2.0)
[2024-05-29] MEDS: vancomycin HCL 1,000 MG in 0.9 % Sodium Chloride 250 ML 270 MG IV (13:43)
[2024-05-29] MEDS: Enoxaparin Sodium 40 MG/0.4 ML SYRINGE SUBCUT (14:50)
[2024-05-29 15:14] VITALS: BP 112/55; PULSE 85; TEMP 36.9; O2SAT 93
--- NOTE | 2024-05-29 17:04 | PC.NURSE ---
note from admitting provider to run vanco at reduced rate d/t facial flushing during administration and concern for red man syndrome.
[2024-05-29] MEDS: Piperacillin Sodium/Tazobactam 4.5 GM in 0.9 % Sodium Chloride 100 ML IV (21:38)
--- NOTE | 2024-05-29 22:23 | PC.NURSE ---
urine specimen/swabs obtained/sent to lab.
[2024-05-29 22:48] VITALS: BP 98/53; PULSE 69; RESP 16; TEMP 37.1; O2SAT 97
[2024-05-30] MEDS: Piperacillin Sodium/Tazobactam 4.5 GM in 0.9 % Sodium Chloride 100 ML IV ×4 (04:19→20:35)
[2024-05-30 05:15] LABS: Hematocrit 31.2 % (37.0-47.0); Hemoglobin 10.5 g/dl (12.0-16.0); Mean Corpuscular HGB Conc 33.7 g/dl (31.0-35.0); Mean Corpuscular Hemoglobin 26.5 pg (27.0-33.0); Mean Corpuscular Volume 78.8 fL (80.0-98.0); Mean Platelet Volume 10.5 fL (9.4-12.3); Platelet Count 280 X10*3/uL (160-400); Red Blood Count 3.96 X10*6/uL (4.20-5.50); White Blood Count 11.1 X10*3/uL (4.8-10.8)
[2024-05-30 05:33] LABS: Anion Gap 14 (12-20); Blood Urea Nitrogen 7 mg/dL (9-16); Calcium 8.7 mg/dL (8.4-10.2); Carbon Dioxide 24 mmol/L (22-29); Chloride 104 mmol/L (96-108); Creatinine Clr Calc Pharmacy 83.9; Estimated Glomerular Filt Rate > 60; Glucose Random 106 mg/dL (60-115); Potassium 3.2 mmol/L (3.3-5.1); Sodium 139 mmol/L (135-145)
[2024-05-30 05:37] LABS: Band Neutrophils Percent 9 % (3-5); Basophils Abs Manual 0.1 X10*3/uL (0.0-0.2); Basophils Percent Manual 1 % (0-2); Eosinophils Absolute Manual 0.4 X10*3/uL (0.0-0.4); Eosinophils Percent Manual 4 % (0-4); Lymphocytes Absolute Manual 0.6 X10*3/uL (1.2-4.9); Lymphocytes Percent Manual 5 % (20-40); Metamyelocytes Absolute 0.2 X10*3/uL; Metamyelocytes Percent 2 %; Monocytes Absolute Manual 0.8 X10*3/uL (0.1-1.2); Monocytes Percent Manual 7 % (2-11); Neutrophils Percent Manual 72 % (45-73)
[2024-05-30] MEDS: cefEPime HCl/D5W 2 GM/50 ML PIGGYBACK IV ×2 (05:37→13:29)
[2024-05-30 05:41] LABS: Burr Cells 1+ (0-2) /OIF; Giant Platelet PRESENT; Ovalocytes 1+ (5-14) /OIF; Platelet Estimate NORMAL (NORMAL); RBC Morphology NOTED; Toxic Granulation PRESENT
[2024-05-30 05:42] LABS: Large Platelet PRESENT; Platelet Morphology Comment NOTE
[2024-05-30 06:21] VITALS: BP 104/60; PULSE 72; RESP 16; TEMP 36.6; O2SAT 97
[2024-05-30 07:27] VITALS: BP 117/68; PULSE 74; RESP 16; TEMP 37.4; O2SAT 98
[2024-05-30 08:17] LABS: Magnesium 2.1 mg/dL (1.6-2.6)
[2024-05-30] MEDS: Multivitamin TABLET 1 TAB PO (09:41)
[2024-05-30] MEDS: Potassium Chloride ER 20 MEQ TAB.ER.PRT PO (09:41)
[2024-05-30] MEDS: 0.9 % Sodium Chloride Flush 3 ML SYRINGE IVFLUSH ×3 (09:41→20:41)
[2024-05-30] MEDS: Cholecalciferol (Vitamin D3) 25 MCG TABLET 50 MCG PO (09:41)
[2024-05-30 09:43] VITALS: BP 114/56; PULSE 78; RESP 16; TEMP 36.6; O2SAT 96
[2024-05-30 11:15] LABS: MRSA Nasal PCR NEGATIVE (Negative); SA Nasal PCR NEGATIVE (Negative)
--- NOTE | 2024-05-30 11:25 | P.PNIM_ITS ---
Subjective Subjective Date of Service: 05/30/24 Interval History: pneumonia Review of Systems cough improving no chest pain or fevers Physical Exam 2 Vital Signs: Vital Signs: Last Vital Signs Temp 97.8 F 05/30/24 09:43 Pulse 78 05/30/24 09:43 Resp 16 05/30/24 09:43 BP 114/56 L 05/30/24 09:43 Pulse Ox 96 05/30/24 09:43 O2 Del Method Room Air 05/30/24 09:43 BMI result Body Mass Index 20.3 Appearance: Alert.? Oriented X3.. cvs: rrr, [id number] . res: air entry improving but somewhat diminshed on right. abd: soft ,nt, bs present. ext pulses present , no cyanosis . neuro: axo3 , nonfocal. Objective Data Active Medications Acetaminophen (Acetaminophen 325 Mg Tablet) 650 mg PO Q6H PRN PRN Reason: Pain, Mild 1-3,fever,headache Calcium Carbonate (Calcium Carbonate 750 Mg Tab.Chew) 750 mg PO Q4H PRN PRN Reason: Heartburn Enoxaparin Sodium (Enoxaparin Sodium 40 Mg/0.4 Ml Syringe) 40 mg SUBCUT Q24H [facility] Last Admin: 05/29/24 14:50 Dose: 40 mg Documented By: CHRISTI Cefepime HCl (Maxipime) 2 gm in 50 mls @ 100 mls/hr IV Q8H [facility] Last Infusion: 05/30/24 06:09 Dose: Infused Documented By: SUNNY Piperacillin Sod/Tazobactam (Sod 4.5 gm/ Sodium Chloride) 100 mls @ 200 mls/hr IV Q6H [facility] Last Infusion: 05/30/24 10:34 Dose: Infused Documented By: PILLO Magnesium Hydroxide (Milk Of Magnesia 30 Ml Oral.Susp) 30 ml PO DAILY PRN PRN Reason: Constipation Melatonin (Melatonin 3 Mg Tablet) 6 mg PO BEDTIME PRN PRN Reason: Insomnia Multivitamins/Vitamin C (Multivitamin Tablet) 1 tab PO DAILY [facility] Last Admin: 05/30/24 09:41 Dose: 1 tab Documented By: PILLO Sodium Chloride (0.9 % Sodium Chloride Flush 3 Ml Syringe) 3 ml IVFLUSH QSHIFT [facility] Last Admin: 05/30/24 09:41 Dose: 3 ml Documented By: PILLO Vitamin D (Cholecalciferol (Vitamin D3) 25 Mcg Tablet) 50 mcg PO DAILY [facility] Last Admin: 05/30/24 09:41 Dose: 50 mcg Documented By: PILLO Labs 05/30/24 04:20 05/30/24 04:20 Labs: Laboratory Results - last 24 hr 05/29/24 05/29/24 05/29/24 13:07 13:18 22:17 MCV MCH MCHC RDW Plt Count MPV Immature Gran % (Auto) Neut % (Auto) Lymph % (Auto) Ector % (Auto) Eos % (Auto) Baso % (Auto) Lymph # (Auto) Ector # (Auto) Eos # (Auto) Baso # (Auto) Abs Immat Gran (auto) Absolute Neuts (auto) Absolute Nucleated RBC Nucleated RBC % (auto) Neutrophils % (Manual) Band Neutrophils % Lymphocytes % (Manual) Monocytes % (Manual) Eosinophils % (Manual) Basophils % (Manual) Metamyelocytes % Abs Neuts (Manual) Lymphocytes # (Manual) Monocytes # (Manual) Eosinophils # (Manual) Basophils # (Manual) Metamyelocytes # Toxic Granulation Platelet Estimate Large Platelets Giant Platelets Plt Morphology Comment RBC Morphology Ovalocytes Erick Cells Anion Gap Estim Creat Clear Calc Estimated GFR Random Glucose Lactic Acid 0.9 Calcium Magnesium Urine Color Yellow Urine Appearance Clear Urine pH 7.5 Ur Specific Evergreen 1.010 Urine Protein 30 (1+) H Urine Glucose (UA) Negative Urine Ketones Negative Urine Blood Trace H Urine Nitrite Negative Ur Leukocyte Esterase Moderate (2+) H Urine RBC 3-5 H Urine WBC 6-10 H Ur Squamous Epith Cells 0-2 Urine Bacteria None Seen Hyaline Casts 0-2 Nasal Screen MRSA (PCR) NEGATIVE Nasal S. aureus Screen NEGATIVE Nasal MRSA/S.aureus Interp SEE NOTE 05/30/24 04:20 MCV 78.8 L MCH 26.5 L MCHC 33.7 RDW 14.0 Plt Count 280 MPV 10.5 Immature Gran % (Auto) Cancelled Neut % (Auto) Cancelled Lymph % (Auto) Cancelled Ector % (Auto) Cancelled Eos % (Auto) Cancelled Baso % (Auto) Cancelled Lymph # (Auto) Cancelled Ector # (Auto) Cancelled Eos # (Auto) Cancelled Baso # (Auto) Cancelled Abs Immat Gran (auto) Cancelled Absolute Neuts (auto) Cancelled Absolute Nucleated RBC 0.000 Nucleated RBC % (auto) 0.0 Neutrophils % (Manual) 72 Band Neutrophils % 9 H Lymphocytes % (Manual) 5 L Monocytes % (Manual) 7 Eosinophils % (Manual) 4 Basophils % (Manual) 1 Metamyelocytes % 2 Abs Neuts (Manual) 9.0 H Lymphocytes # (Manual) 0.6 L Monocytes # (Manual) 0.8 Eosinophils # (Manual) 0.4 Basophils # (Manual) 0.1 Metamyelocytes # 0.2 Toxic Granulation PRESENT Platelet Estimate NORMAL Large Platelets PRESENT Giant Platelets PRESENT Plt Morphology Comment NOTE RBC Morphology NOTED Ovalocytes 1+ (5-14) Erick Cells 1+ (0-2) Anion Gap 14 Estim Creat Clear Calc 83.9 Estimated GFR > 60 Random Glucose 106 Lactic Acid Calcium 8.7 Magnesium 2.1 Urine Color Urine Appearance Urine pH Ur Specific Evergreen Urine Protein Urine Glucose (UA) Urine Ketones Urine Blood Urine Nitrite Ur Leukocyte Esterase Urine RBC Urine WBC Ur Squamous Epith Cells Urine Bacteria Hyaline Casts Nasal Screen MRSA (PCR) Nasal S. aureus Screen Nasal MRSA/S.aureus Interp Microbiology Microbiology Results: Microbiology 05/29/24 Unknown Urine Culture - Final Urine clean catch - Clean Catch Midstream No growth. Assessment and Plan (1) Pneumonia: Status: Acute Assessment and Plan: 59-year-old female with history of CLL in remission [facility], HSV and recently diagnosed community-acquired pneumonia completed course of cefuroxime and doxycycline times 10 days admitted for further management worsening CAP having failed outpt abx with sepsis. community-acquired pneumonia with sepsis sepsis improving-leukocytosis improving, tachycardia resolved. normal Lactic acid blood cultures pending CXR shows consolidative opacities in the right middle lobe and lingula similar to prior exam though more extensive, possibly representing recurrent versus persistent bilateral pneumonia failed outpatient therapy with cefuroxime and doxycycline plan: given history of CLL and immunocompromised status, we will cover broadly with cefepime and zosyn -(initiated 05/29),did not tolerate vanco as per staff. -strep pneumo antigen, Legionella antigen, sputum culture, and MRSA nasal swab ordered ID eval CLL-in remission, follows with [facility] DVT prophylaxis-Lovenox Full code ongoing need for management of community-acquired pneumonia with sepsis having failed outpatient therapies requiring IV antibiotics and close monitoring of hemodynamics Quality Stroke Does the patient have a stroke diagnosis?: No VTE Prior VTE?: No VTE Risk Level:: Medical - moderate - high VTE Device Contraindication: Treatment Not Indicated VTE Drug Contraindication: N/A - Med Ordered
--- NOTE | 2024-05-30 11:40 | MHC.CM.PN ---
PT LIVES WITH IS INDEPENDENT HAD NO SERVICES DC PLAN HOME NO SERVICES
[2024-05-30] MEDS: Enoxaparin Sodium 40 MG/0.4 ML SYRINGE SUBCUT (13:30)
[2024-05-30 14:00] VITALS: BP 109/63; PULSE 78; RESP 16; TEMP 37.1
[2024-05-30 15:01] VITALS: O2SAT 96
[2024-05-30] MEDS: Atovaquone 750 MG/5 ML ORAL.SUSP PO (20:35)
[2024-05-30 20:56] VITALS: BP 125/62; PULSE 79; RESP 18; TEMP 37.3; O2SAT 94
--- NOTE | 2024-05-30 22:47 | W.PM.IDCN ---
History of Present Illness Data of Consult Service Date: 05/30/24 Requesting physician: Cornel Lim Primary Care Provider: Darlene Rodriguez MD HPI Reason for consult: patchy lung infiltrates She presents with weakness and fatigue last two weeks with vomiting two nights ago and anorexia. She has sinus discomfort and clear nasal dripping and also had received cephalosporin and doxycycline for 10 days with no improvement in generalized symptoms. She has CXR infiltrates bilateral lungs,patchy mostly bases. She has oxygen saturation, 91% ,RA. She was diagnosed with CLL in 2018. She saw Hematology here at [facility] and then went for trial she says to [facility]. She received chemotherapy for 18 months and then now gets every 3 month checkup which she just had last week. She has not been on any medication for CLL since. She has no travel or ill pets or exposure to anyone ill. Review of Systems Review of Systems: Yes all other systems are reviewed and are negative PMFSH Past Medical History Medical History Herpes simplex CLL (chronic lymphocytic leukemia) Family History Family History Maternal Aunt History of breast cancer Family history: reviewed and not pertinent Surgical History Surgical History History of endometrial ablation History of bone marrow biopsy Hx of section Social History Social History Household Members: Spouse and Children Housing: House Are you a primary point of care technician to a significant other at home: No Do you presently have visiting nurse or other home services: No Unable to assess alcohol history related to: Unknown Patient Tobacco Use Status: Never used Tobacco service: No Current occupational status: employed 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 Sexual orientation: Straight/Heterosexual Gender identity: Female Meds Allergies Allergy/AdvReac Type Severity Reaction Status Date / Time sulfamethoxazole Allergy Severe rash Verified 05/29/24 08:13 [From Bactrim] trimethoprim [From Bactrim] Allergy Severe rash Verified 05/29/24 08:13 codeine [Codeine] Allergy Unknown RASH Verified 05/29/24 08:13 cephalexin AdvReac Mild rash Verified 05/29/24 08:13 Active Medications: Current Medications Acetaminophen (Acetaminophen 325 Mg Tablet) 650 mg PO Q6H PRN PRN Reason: Pain, Mild 1-3,fever,headache Atovaquone (Atovaquone 750 Mg/5 Ml Oral.Susp) 750 mg PO BID [facility] Last Admin: 05/30/24 20:35 Dose: 750 mg Calcium Carbonate (Calcium Carbonate 750 Mg Tab.Chew) 750 mg PO Q4H PRN PRN Reason: Heartburn Enoxaparin Sodium (Enoxaparin Sodium 40 Mg/0.4 Ml Syringe) 40 mg SUBCUT Q24H [facility] Last Admin: 05/30/24 13:30 Dose: 40 mg Piperacillin Sod/Tazobactam (Sod 4.5 gm/ Sodium Chloride) 100 mls @ 200 mls/hr IV Q6H [facility] Last Infusion: 05/30/24 21:12 Dose: Infused Magnesium Hydroxide (Milk Of Magnesia 30 Ml Oral.Susp) 30 ml PO DAILY PRN PRN Reason: Constipation Melatonin (Melatonin 3 Mg Tablet) 6 mg PO BEDTIME PRN PRN Reason: Insomnia Multivitamins/Vitamin C (Multivitamin Tablet) 1 tab PO DAILY [facility] Last Admin: 05/30/24 09:41 Dose: 1 tab Sodium Chloride (0.9 % Sodium Chloride Flush 3 Ml Syringe) 3 ml IVFLUSH QSHIFT [facility] Last Admin: 05/30/24 20:41 Dose: 3 ml Vitamin D (Cholecalciferol (Vitamin D3) 25 Mcg Tablet) 50 mcg PO DAILY [facility] Last Admin: 05/30/24 09:41 Dose: 50 mcg Home Medications ?Medication ?Instructions ?Recorded ?Confirmed ?Last Taken ?Type cholecalciferol (vitamin D3) 50 50 mcg PO DAILY 12/28/19 05/29/24 2 Weeks Ago History mcg (2,000 unit) capsule (Vitamin ~05/15/24 D3) vitamin B complex 1 tab PO DAILY 05/29/24 05/29/24 2 Weeks Ago History ~05/15/24 Physical Exam Vital Signs: Vital Signs: Last Vital Signs Temp 99.2 F 05/30/24 20:56 Pulse 79 05/30/24 20:56 Resp 18 05/30/24 20:56 BP 125/62 05/30/24 20:56 Pulse Ox 94 05/30/24 20:56 O2 Del Method Nasal Cannula 05/30/24 20:56 O2 Flow Rate 1 05/30/24 20:56 BMI result Body Mass Index 20.3 Const: General: cooperative HEENT: Head: Yes normal to inspection Face and sinus: Yes normal facial exam Mouth: Normal oral and palatal mucosa present Teeth and gingiva: dentition normal Eyes: General: appearance normal, both eyes and all related structures Pupils: Equal, round and reactive pupils present Resp: Effort & Inspection: normal respiratory effort Cardio: Rate: regular rate Rhythm: regular rhythm GI: Palpation (GI): Soft to palpation and nontender : General: Yes no CVA tenderness Back/Spine/Pelvis: Back: no CVA tenderness Skin: General skin exam: no rashes or lesions noted Neuro: General: moves all extremities Cranial nerves: Yes Equal, round and reactive pupils present Extrem: General: Yes normal to inspection Psych: Appearance: grossly normal Results Labs 05/30/24 04:20 05/30/24 04:20 Labs: Short CBC 05/30/24 Range/Units 04:20 WBC 11.1 H (4.8-10.8) X10*3/uL Hgb 10.5 L (12.0-16.0) g/dl Hct 31.2 L (37.0-47.0) % Plt Count 280 (160-400) X10*3/uL BMP 05/30/24 04:20 Sodium 139 Potassium 3.2 L Chloride 104 Carbon Dioxide 24 BUN 7 L Creatinine 0.60 Calcium 8.7 Microbiology Microbiology Results: Microbiology 05/29/24 13:06 Blood - Venous Blood Culture - Preliminary No growth after 24 hours. 05/29/24 13:07 Blood - Venous Blood Culture - Preliminary No growth after 24 hours. 05/29/24 Unknown Urine clean catch - Clean Catch Midstream Urine Culture - Final No growth. Assessment and Plan (1) Pneumonia: Status: Acute (2) Sepsis: Status: Acute Plan She has possible pneumonic infiltrates due to bacteria but would be unusual since didnt respond to good course of po antibiotics. Possibility include PJP and fungus. It is also possible she may have herpes infection ,unlikely. It is also possible she has small lymphocytic lymphoma or B cell lymphoma. Nasal MRSA PCR is negative. Continue piperacillin/tazobactam cover encapsulated organisms they are susceptible to like strep pneumonia. Start Mepron PJP. PCR for PJP sputum. CT scan with contrast evaluate for PE and/or lymphoma. Consider abdominal CT if above negative. Agree with stopping Vancomycin as nasal MRSA negative. Duration antibiotics to be determined and if above all negative possible 14 d Levaquin or Augmentin.
[2024-05-31] MEDS: Piperacillin Sodium/Tazobactam 4.5 GM in 0.9 % Sodium Chloride 100 ML IV ×4 (03:34→21:36)
[2024-05-31 03:58] VITALS: BP 110/55; PULSE 69; RESP 16; TEMP 36.6; O2SAT 94
[2024-05-31 07:38] VITALS: BP 105/59; PULSE 69; RESP 16; TEMP 36.9; O2SAT 96
[2024-05-31] MEDS: Atovaquone 750 MG/5 ML ORAL.SUSP PO ×2 (08:15→21:36)
[2024-05-31] MEDS: Cholecalciferol (Vitamin D3) 25 MCG TABLET 50 MCG PO (08:15)
[2024-05-31] MEDS: Multivitamin TABLET 1 TAB PO (08:16)
[2024-05-31] MEDS: 0.9 % Sodium Chloride Flush 3 ML SYRINGE IVFLUSH ×3 (09:04→21:36)
--- NOTE | 2024-05-31 10:24 | HO.PM.IMPN ---
Subjective Subjective Date of Service: 05/31/24 Interval History: still needing o2 Physical Exam Vital Signs: Vital Signs: Last Vital Signs Temp 98.4 F 05/31/24 07:38 Pulse 69 05/31/24 07:38 Resp 16 05/31/24 07:38 BP 105/59 L 05/31/24 07:38 Pulse Ox 96 05/31/24 07:38 O2 Del Method Nasal Cannula 05/31/24 07:38 O2 Flow Rate 1 05/31/24 07:38 BMI result Body Mass Index 20.3 General: AO X 3, no acute distress Resp: Crackles bilateral, no accessory muscles used CVS: S1,S2,RRR GI: soft, non tender, non distended Neuro: motor grossly intact, alert Psych: appropriate affect, appropriate insight Objective Data Active Medications Acetaminophen (Acetaminophen 325 Mg Tablet) 650 mg PO Q6H PRN PRN Reason: Pain, Mild 1-3,fever,headache Atovaquone (Atovaquone 750 Mg/5 Ml Oral.Susp) 750 mg PO BID [facility] Last Admin: 05/31/24 08:15 Dose: 750 mg Documented By: ITA Calcium Carbonate (Calcium Carbonate 750 Mg Tab.Chew) 750 mg PO Q4H PRN PRN Reason: Heartburn Enoxaparin Sodium (Enoxaparin Sodium 40 Mg/0.4 Ml Syringe) 40 mg SUBCUT Q24H [facility] Last Admin: 05/30/24 13:30 Dose: 40 mg Documented By: SERGEI Piperacillin Sod/Tazobactam (Sod 4.5 gm/ Sodium Chloride) 100 mls @ 200 mls/hr IV Q6H [facility] Last Infusion: 05/31/24 09:46 Dose: Infused Documented By: ITA Magnesium Hydroxide (Milk Of Magnesia 30 Ml Oral.Susp) 30 ml PO DAILY PRN PRN Reason: Constipation Melatonin (Melatonin 3 Mg Tablet) 6 mg PO BEDTIME PRN PRN Reason: Insomnia Methylprednisolone Sodium Succinate (Methylprednisolone Sod Succ 40 Mg/Ml Vial) 40 mg IVPUSH Q12H [facility] Multivitamins/Vitamin C (Multivitamin Tablet) 1 tab PO DAILY [facility] Last Admin: 05/31/24 08:16 Dose: 1 tab Documented By: ITA Potassium Chloride (Potassium Chloride Er 20 Meq Tab.Er.Prt) 40 meq PO ONCE ONE Stop: 05/31/24 10:21 Sodium Chloride (0.9 % Sodium Chloride Flush 3 Ml Syringe) 3 ml IVFLUSH QSHIFT [facility] Last Admin: 05/31/24 09:04 Dose: 3 ml Documented By: ITA Vitamin D (Cholecalciferol (Vitamin D3) 25 Mcg Tablet) 50 mcg PO DAILY [facility] Last Admin: 05/31/24 08:15 Dose: 50 mcg Documented By: ITA Labs 05/30/24 04:20 05/30/24 04:20 Labs: Laboratory Results - last 24 hr 05/29/24 22:17 Nasal Screen MRSA (PCR) NEGATIVE Nasal S. aureus Screen NEGATIVE Nasal MRSA/S.aureus Interp SEE NOTE Microbiology Microbiology Results: Microbiology 05/29/24 13:06 Blood Culture - Preliminary Blood - Venous No growth after 24 hours. 05/29/24 13:07 Blood Culture - Preliminary Blood - Venous No growth after 24 hours. 05/29/24 Unknown Urine Culture - Final Urine clean catch - Clean Catch Midstream No growth. Assessment and Plan (1) CLL (chronic lymphocytic leukemia): Status: Acute Plan 59F PMH CLL in remission, presented with sob, cough sepsis and acute hypoxic respiratory failure due to multilobar pneumonia in immunocompromised patient mrsa negative - dc vanc continue zosyn to cover gram negatives and positives ID appreciated - started atovaquone for possible pneumocystis will start steroids for any inflammatory component check CT chest acute hypokalemia replace and monitor [facility]LL [facility] - lovenox full code reason for continued hospitalization:hypoxia Quality Stroke Does the patient have a stroke diagnosis?: No VTE Prior VTE?: No VTE Risk Level:: Medical - moderate - high VTE Device Contraindication: Treatment Not Indicated VTE Drug Contraindication: N/A - Med Ordered
[2024-05-31] MEDS: Potassium Chloride ER 20 MEQ TAB.ER.PRT 40 MEQ PO (10:39)
[2024-05-31] MEDS: methylPREDNISolone Sod Succ 40 MG/ML VIAL IVPUSH ×2 (10:40→21:36)
[2024-05-31 10:51] LABS: Lactate Dehydrogenase 174 U/L (122-220)
[2024-05-31] MEDS: Enoxaparin Sodium 40 MG/0.4 ML SYRINGE SUBCUT (12:22)
[2024-05-31 14:26] VITALS: TEMP 36.4; O2SAT 94
[2024-05-31 15:03] VITALS: BP 125/60; PULSE 77; RESP 18; TEMP 36.4; O2SAT 95
--- NOTE | 2024-05-31 15:40 | MHC.CM.PN ---
PER ROUNDS PT STILL ON NOT MEDICALLY CLEAR FOR DC
[2024-05-31 19:23] VITALS: BP 109/55; PULSE 67; RESP 18; TEMP 36.4; O2SAT 96
[2024-06-01 03:22] VITALS: BP 116/63; PULSE 60; RESP 16; TEMP 36.5; O2SAT 96
[2024-06-01] MEDS: Piperacillin Sodium/Tazobactam 4.5 GM in 0.9 % Sodium Chloride 100 ML IV ×2 (03:26→09:34)
[2024-06-01 06:47] LABS: Anion Gap 16 (12-20); Blood Urea Nitrogen 9 mg/dL (9-16); Calcium 9.1 mg/dL (8.4-10.2); Carbon Dioxide 25 mmol/L (22-29); Chloride 105 mmol/L (96-108); Creatinine Clr Calc Pharmacy 88.2; Estimated Glomerular Filt Rate > 60; Glucose Random 161 mg/dL (60-115); Magnesium 2.4 mg/dL (1.6-2.6); Potassium 4.2 mmol/L (3.3-5.1); Sodium 142 mmol/L (135-145)
[2024-06-01 06:51] LABS: Hematocrit 36.2 % (37.0-47.0); Hemoglobin 11.9 g/dl (12.0-16.0); Mean Corpuscular HGB Conc 32.9 g/dl (31.0-35.0); Mean Corpuscular Hemoglobin 26.7 pg (27.0-33.0); Mean Corpuscular Volume 81.2 fL (80.0-98.0); Platelet Count 328 X10*3/uL (160-400); Red Blood Count 4.46 X10*6/uL (4.20-5.50); Red Cell Distribution Width 13.8 % (11.0-16.0); White Blood Count 15.2 X10*3/uL (4.8-10.8)
[2024-06-01 08:00] VITALS: BP 128/67; PULSE 62; RESP 18; TEMP 36.1; O2SAT 96
--- NOTE | 2024-06-01 08:57 | HO.PM.IMPN ---
Subjective Subjective Date of Service: 06/01/24 Interval History: still needing o2 Physical Exam Vital Signs: Vital Signs: Last Vital Signs Temp 97.0 F 06/01/24 08:00 Pulse 62 06/01/24 08:00 Resp 18 06/01/24 08:00 BP 128/67 06/01/24 08:00 Pulse Ox 96 06/01/24 08:00 O2 Del Method Nasal Cannula 06/01/24 08:00 O2 Flow Rate 1.0 06/01/24 08:00 BMI result Body Mass Index 20.3 General: AO X 3, no acute distress Resp: Crackles bilateral, no accessory muscles used CVS: S1,S2,RRR GI: soft, non tender, non distended Neuro: motor grossly intact, alert Psych: appropriate affect, appropriate insight Objective Data Active Medications Acetaminophen (Acetaminophen 325 Mg Tablet) 650 mg PO Q6H PRN PRN Reason: Pain, Mild 1-3,fever,headache Atovaquone (Atovaquone 750 Mg/5 Ml Oral.Susp) 750 mg PO BID [facility] Last Admin: 05/31/24 21:36 Dose: 750 mg Documented By: KAJAL Calcium Carbonate (Calcium Carbonate 750 Mg Tab.Chew) 750 mg PO Q4H PRN PRN Reason: Heartburn Enoxaparin Sodium (Enoxaparin Sodium 40 Mg/0.4 Ml Syringe) 40 mg SUBCUT Q24H [facility] Last Admin: 05/31/24 12:22 Dose: 40 mg Documented By: ITA Piperacillin Sod/Tazobactam (Sod 4.5 gm/ Sodium Chloride) 100 mls @ 200 mls/hr IV Q6H [facility] Last Infusion: 06/01/24 04:01 Dose: Infused Documented By: KAJAL Magnesium Hydroxide (Milk Of Magnesia 30 Ml Oral.Susp) 30 ml PO DAILY PRN PRN Reason: Constipation Melatonin (Melatonin 3 Mg Tablet) 6 mg PO BEDTIME PRN PRN Reason: Insomnia Methylprednisolone Sodium Succinate (Methylprednisolone Sod Succ 40 Mg/Ml Vial) 40 mg IVPUSH Q12H [facility] Last Admin: 05/31/24 21:36 Dose: 40 mg Documented By: KAJAL Multivitamins/Vitamin C (Multivitamin Tablet) 1 tab PO DAILY [facility] Last Admin: 05/31/24 08:16 Dose: 1 tab Documented By: ITA Sodium Chloride (0.9 % Sodium Chloride Flush 3 Ml Syringe) 3 ml IVFLUSH QSHIFT [facility] Last Admin: 05/31/24 21:36 Dose: 3 ml Documented By: ELADIOQC Vitamin D (Cholecalciferol (Vitamin D3) 25 Mcg Tablet) 50 mcg PO DAILY [facility] Last Admin: 05/31/24 08:15 Dose: 50 mcg Documented By: ITA Labs 06/01/24 05:30 06/01/24 05:30 Labs: Laboratory Results - last 24 hr 05/30/24 06/01/24 04:20 05:30 MCV 81.2 MCH 26.7 L MCHC 32.9 RDW 13.8 Plt Count 328 MPV 10.0 Absolute Nucleated RBC 0.000 Nucleated RBC % (auto) 0.0 Anion Gap 16 Estim Creat Clear Calc 88.2 Estimated GFR > 60 Random Glucose 161 H Calcium 9.1 Magnesium 2.4 Lactate Dehydrogenase 174 Microbiology Microbiology Results: Microbiology 05/29/24 13:06 Blood Culture - Preliminary Blood - Venous No growth after 48 hours. 05/29/24 13:07 Blood Culture - Preliminary Blood - Venous No growth after 48 hours. Assessment and Plan (1) CLL (chronic lymphocytic leukemia): Status: Acute Plan 59F PMH CLL in remission, presented with sob, cough sepsis and acute hypoxic respiratory failure due to multilobar pneumonia in immunocompromised patient mrsa negative - dc vanc continue zosyn to cover gram negatives and positives ID appreciated - started atovaquone for possible pneumocystis started steroids for any inflammatory component ct chest :Multifocal infiltrates in the right middle lobe, left upper lobe, and bilateral lower lobes. Given the persistence of these abnormalities on chest x-ray since 05/06/2024, atypical factious and noninfectious etiologies should be considered. pulm eval acute hypokalemia replaced CLL follows with [facility] dvt prophylaxis - lovenox full code reason for continued hospitalization:hypoxia Quality Stroke Does the patient have a stroke diagnosis?: No VTE Prior VTE?: No VTE Risk Level:: Medical - moderate - high VTE Device Contraindication: Treatment Not Indicated VTE Drug Contraindication: N/A - Med Ordered
[2024-06-01 09:27] LABS: Band Neutrophils Percent 5 % (3-5); Basophils Abs Manual 0.3 X10*3/uL (0.0-0.2); Basophils Percent Manual 2 % (0-2); Lymphocytes Absolute Manual 0.9 X10*3/uL (1.2-4.9); Lymphocytes Percent Manual 6 % (20-40); Metamyelocytes Absolute 0.5 X10*3/uL; Metamyelocytes Percent 3 %; Monocytes Absolute Manual 0.2 X10*3/uL (0.1-1.2); Monocytes Percent Manual 1 % (2-11); Myelocytes Absolute 0.3 X10*/uL; Myelocytes Percent 2 %; Neutrophils Absolute Manual 12.9 X10*3/uL (2.0-8.3); Neutrophils Percent Manual 80 % (45-73); Promyelocytes Absolute 0.2 X10*3/uL; Promyelocytes Percent 1 %; RBC Morphology NOTED
[2024-06-01 09:28] LABS: Burr Cells 1+ (0-2) /OIF; Large Platelet PRESENT; Platelet Estimate NORMAL (NORMAL); Platelet Morphology Comment NOTED; Polychromasia 1+ (0-2) /OIF; Toxic Granulation PRESENT
[2024-06-01] MEDS: Cholecalciferol (Vitamin D3) 25 MCG TABLET 50 MCG PO (09:34)
[2024-06-01] MEDS: methylPREDNISolone Sod Succ 40 MG/ML VIAL IVPUSH (09:34)
[2024-06-01] MEDS: Multivitamin TABLET 1 TAB PO (09:34)
[2024-06-01] MEDS: Atovaquone 750 MG/5 ML ORAL.SUSP PO (09:34)
[2024-06-01 09:44] LABS: Erythrocyte Sedimentation Rate 65 MM/HR (0-20)
[2024-06-01 10:41] LABS: Adenovirus PCR Not Detected (Not Detect.); Bordetella parapertussis PCR Not Detected (Not Detect.); Bordetella pertussis PCR Not Detected (Not Detect.); Chlamydia pneumoniae PCR Not Detected (Not Detect.); Coronavirus 229E PCR Not Detected (Not Detect.); Coronavirus HKU1 PCR Not Detected (Not Detect.); Coronavirus NL63 PCR Not Detected (Not Detect.); Coronavirus OC43 PCR Not Detected (Not Detect.); Human metapneumovirus PCR Not Detected (Not Detect.); Influenza A PCR Not Detected (Not Detect.); Influenza B PCR Not Detected (Not Detect.); Mycoplasma pneumoniae PCR Not Detected (Not Detect.); Parainfluenza 1 PCR Not Detected (Not Detect.); Parainfluenza 2 PCR Not Detected (Not Detect.); Parainfluenza 3 PCR Not Detected (Not Detect.); Parainfluenza 4 PCR Not Detected (Not Detect.); RSV PCR Not Detected (Not Detect.); Rhino/Enterovirus PCR Not Detected (Not Detect.)
[2024-06-01 11:01] LABS: SARS-CoV-2 PCR Not Detected (Not Detect.)
[2024-06-01] MEDS: Enoxaparin Sodium 40 MG/0.4 ML SYRINGE SUBCUT (12:37)
--- NOTE | 2024-06-01 13:05 | P.CONPL_ITS ---
History of Present Illness History of Present Illness Consult date: 06/01/24 Chief complaint: CAP - failed outpt abx Narrative: 59-year-old lady, nonsmoker, with underlying history of CLL in 2018, treated at [facility] with clinical trial chemotherapy, no radiation of bone marrow transplant, complicated by pneumonitis requiring prolonged prednisone course and IVIG, resolved per patient at least several years prior to this admission. Patient with more recent history of influenza in April of 2024 complicated by bacterial superinfection resultant pneumonia, treated with an antibiotic course and now admitted with what appears to be Risser an incompletely previously treated pneumonia or a new community-acquired pneumonia on 05/29/2024 with worsening cough and dyspnea, now improved significantly on empiric antibiotic therapy. Her CT chest demonstrates peripheral posterior basilar predominant bilateral ground-glass infiltrates. At the same time patient reports significantly improved respiratory symptoms, essentially at baseline, and no longer requiring supplemental oxygen with ambulation , though still with some cough when talking. Review of Systems 2 Constitutional: Constitutional: Denies daytime sleepiness, Denies excessive sweating, Denies fatigue, Denies fever(s), Denies lethargy, Denies malaise, Denies night sweats, Denies snoring and Denies weight loss Eyes: Eyes: Denies blurry vision and Denies itchy eyes ENT: Denies nasal congestion, Denies post nasal drip, Denies sinus pain, Denies sinus pressure and Denies other ( Thrush) Cardiovascular: Cardiovascular: Denies chest pain, Denies pedal edema, Denies dyspnea, Denies orthopnea and Denies paroxysmal nocturnal dyspnea Respiratory: Respiratory: Denies cough, Denies hemoptysis, Denies excessive phlegm production, Denies dyspnea, Denies snoring and Denies wheezing Gastrointestinal: Gastrointestinal: Denies abdominal pain and Denies heartburn Musculoskeletal: Musculoskeletal: Denies myalgias, Denies arthralgias and Denies joint swelling Integumentary/Breasts: Skin/Breast: Denies rash Neurologic: Denies memory loss and Denies seizure-like activity Psychiatric: Psychiatric: Denies abnormal sleep pattern, Denies anxiety and Denies memory loss Endocrine: Endocrine: Denies excessive sweating, Denies fatigue and Denies heat intolerance Hematologic/Lymphatic: Hematologic/Lymphatic: Denies easy bruising Allergic/Immunologic: Allergic/Immunologic: Denies itchy eyes, Denies seasonal rhinorrhea and Denies wheezing PMFSH Past Medical History Medical History Herpes simplex CLL (chronic lymphocytic leukemia) Family History Family History Maternal Aunt History of breast cancer Family history: reviewed and not pertinent Surgical History Surgical History History of endometrial ablation History of bone marrow biopsy Hx of section Social History Social History Household Members: Spouse and Children Housing: House Are you a primary summer child caregiver to a significant other at home: No Do you presently have visiting nurse or other home services: No Unable to assess alcohol history related to: Unknown Patient Tobacco Use Status: Never used Tobacco service: No Current occupational status: employed 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 Sexual orientation: Straight/Heterosexual Gender identity: Female Meds Allergies Allergy/AdvReac Type Severity Reaction Status Date / Time sulfamethoxazole Allergy Severe rash Verified 05/29/24 08:13 [From Bactrim] trimethoprim [From Bactrim] Allergy Severe rash Verified 05/29/24 08:13 codeine [Codeine] Allergy Unknown RASH Verified 05/29/24 08:13 cephalexin AdvReac Mild rash Verified 05/29/24 08:13 Active Medications: Current Medications Acetaminophen (Acetaminophen 325 Mg Tablet) 650 mg PO Q6H PRN PRN Reason: Pain, Mild 1-3,fever,headache Atovaquone (Atovaquone 750 Mg/5 Ml Oral.Susp) 750 mg PO BID [facility] Last Admin: 06/01/24 09:34 Dose: 750 mg Calcium Carbonate (Calcium Carbonate 750 Mg Tab.Chew) 750 mg PO Q4H PRN PRN Reason: Heartburn Enoxaparin Sodium (Enoxaparin Sodium 40 Mg/0.4 Ml Syringe) 40 mg SUBCUT Q24H [facility] Last Admin: 06/01/24 12:37 Dose: 40 mg Piperacillin Sod/Tazobactam (Sod 4.5 gm/ Sodium Chloride) 100 mls @ 200 mls/hr IV Q6H [facility] Last Infusion: 06/01/24 10:11 Dose: Infused Magnesium Hydroxide (Milk Of Magnesia 30 Ml Oral.Susp) 30 ml PO DAILY PRN PRN Reason: Constipation Melatonin (Melatonin 3 Mg Tablet) 6 mg PO BEDTIME PRN PRN Reason: Insomnia Methylprednisolone Sodium Succinate (Methylprednisolone Sod Succ 40 Mg/Ml Vial) 40 mg IVPUSH Q12H [facility] Last Admin: 06/01/24 09:34 Dose: 40 mg Multivitamins/Vitamin C (Multivitamin Tablet) 1 tab PO DAILY [facility] Last Admin: 06/01/24 09:34 Dose: 1 tab Sodium Chloride (0.9 % Sodium Chloride Flush 3 Ml Syringe) 3 ml IVFLUSH QSHIFT [facility] Last Admin: 06/01/24 09:38 Dose: Not Given Vitamin D (Cholecalciferol (Vitamin D3) 25 Mcg Tablet) 50 mcg PO DAILY [facility] Last Admin: 06/01/24 09:34 Dose: 50 mcg Home Medications ?Medication ?Instructions ?Recorded ?Confirmed ?Last Taken ?Type cholecalciferol (vitamin D3) 50 50 mcg PO DAILY 12/28/19 05/29/24 2 Weeks Ago History mcg (2,000 unit) capsule (Vitamin ~05/15/24 D3) vitamin B complex 1 tab PO DAILY 05/29/24 05/29/24 2 Weeks Ago History ~05/15/24 Physical Exam 2 Vital Signs: Vital Signs: Last Vital Signs Temp 97.0 F 06/01/24 08:00 Pulse 62 06/01/24 08:00 Resp 18 06/01/24 08:00 BP 128/67 06/01/24 08:00 Pulse Ox 96 06/01/24 08:00 O2 Del Method Nasal Cannula 06/01/24 08:00 O2 Flow Rate 1.0 06/01/24 08:00 BMI result Body Mass Index 20.3 Const: General: no acute distress and alert Nutritional Appearance: not obese Orientation/consciousness: Other orientation findings ( oriented) HEENT: Head: Yes atraumatic Eyes: General: appearance normal, both eyes and all related structures S clerae: sclerae normal EOM: EOMs intact bilaterally Neck: Neck: Yes supple Lymphatic: no lymphadenopathy noted Resp: Effort & Inspection: normal respiratory effort and no use of accessory muscles Auscultation: clear to auscultation bilaterally Cardio: Rate: regular rate Rhythm: regular rhythm Heart sounds: no gallops, no murmurs and no rubs Skin: General skin exam: other ( warm) Extrem: General: No clubbing, No cyanosis and No edema Results Laboratory Findings 06/01/24 05:30 06/01/24 05:30 Abnormal lab findings: Abnormal Labs 05/29/24 05/29/24 05/30/24 08:30 13:18 04:20 WBC 13.6 H 11.1 H RBC 3.96 L Hgb 10.5 L Hct 36.3 L 31.2 L MCV 78.8 L MCH 26.9 L 26.5 L Immature Gran % (Auto) 2.9 H Neut % (Auto) 78.4 H Lymph % (Auto) 5.4 L Lymph # (Auto) 0.7 L [place] # (Auto) 1.5 H Abs Immat Gran (auto) 0.40 H Absolute Neuts (auto) 10.6 H Neutrophils % (Manual) Band Neutrophils % 9 H Lymphocytes % (Manual) 5 L Monocytes % (Manual) Abs Neuts (Manual) 9.0 H Lymphocytes # (Manual) 0.6 L Basophils # (Manual) ESR Potassium 3.2 L BUN 6 L 7 L Random Glucose 139 H Urine Protein 30 (1+) H Urine Blood Trace H Ur Leukocyte Esterase Moderate (2+) H Urine RBC 3-5 H Urine WBC 6-10 H 06/01/24 06/01/24 05:30 08:45 WBC 15.2 H RBC Hgb 11.9 L Hct 36.2 L MCV MCH 26.7 L Immature Gran % (Auto) Neut % (Auto) Lymph % (Auto) Lymph # (Auto) [place] # (Auto) Abs Immat Gran (auto) Absolute Neuts (auto) Neutrophils % (Manual) 80 H Band Neutrophils % Lymphocytes % (Manual) 6 L Monocytes % (Manual) 1 L Abs Neuts (Manual) 12.9 H Lymphocytes # (Manual) 0.9 L Basophils # (Manual) 0.3 H ESR 65 H Potassium BUN Random Glucose 161 H Urine Protein Urine Blood Ur Leukocyte Esterase Urine RBC Urine WBC Microbiology: Microbiology 05/29/24 13:06 Blood - Venous Blood Culture - Preliminary No growth after 48 hours. 05/29/24 13:07 Blood - Venous Blood Culture - Preliminary No growth after 48 hours. 05/29/24 Unknown Urine clean catch - Clean Catch Midstream Urine Culture - Final No growth. Assessment and Plan (1) Abnormal CT scan, chest: Status: Acute (2) Acute respiratory failure with hypoxia: Status: Acute Plan Impression: 59-year-old lady with remote CLL treated with chemotherapy only, complicated by pneumonitis which resolved at least several years prior, now admitted with acute hypoxic respiratory failure with community-acquired pneumonia with CT chest demonstrates bilateral peripheral ground-glass infiltrates, though with essentially resolved respiratory symptoms. Etiology of her abnormal CT chest findings is unclear, may be related to recent influenza/community-acquired pneumonia, unlikely, but still can be recurrence of her prior pneumonitis. Overall, clinically significantly improved and is essentially at baseline. Recommendation: Complete total 14 days on empiric antibiotics for community- acquired pneumonia and prednisone taper initially at 40 mg daily, going down by 10 mg every [address] chest in 8 weeks and continue with outpatient pulmonary follow-up. Procedures Date of Service Date of Service: 06/01/24
--- NOTE | 2024-06-01 13:15 | P.DS_ITS ---
DS: Providers Provider Date of Service: 06/01/24 Date of admission: 05/29/24 13:38 Date of discharge: 06/01/24 Primary care physician: Darlene Rodriguez MD Consults: 05/30/24 08:42 Consult to Infectious Diseases Routine Consulting Provider: [facility] Reason for consultation: Pneumonia ,CLL , failed outpatient rx 05/31/24 10:39 Consult to Pulmonology Routine Consulting Provider: [facility] Reason for consultation: bilateral opacities, history of pneumonitis, CLL DS: Diagnosis Discharge Diagnosis (1) CLL (chronic lymphocytic leukemia): Status: Acute DS: Summary Hospital Course Hospital Course: from initial hpi: 59-year-old female with history of CLL in remission following with [facility], [facility] and recently diagnosed community-acquired pneumonia completed course of cefuroxime and doxycycline times 10 days presents to the ER today for evaluation of productive cough, nasal congestion, sinus pressure and fever of 101.5 last night. Following her course of antibiotics for pneumonia, she states that she had felt well for about 3 days and then symptoms recurred. She denies any known sick contacts at home. No sore throat, headaches, abdominal pain, nausea, vomiting, diarrhea, shortness of breath, or chest pain. She denies any alcohol use or illicit drug use. No cigarette smoking. Denies any recent travel. She reports that she has been in remission for her CLL for the last 2 years. On arrival, she is afebrile without hypoxia. Heart rate slightly elevated at 98. There is a leukocytosis of 13.6. Renal function baseline, electrolyte levels normal. Negative for COVID-19, flu, RSV. Chest x-ray shows consolidative opacities in the right middle lobe and lingula similar to prior exam though more extensive, possibly recurrent versus persistent bilateral pneumonia. She will begin admitted for further management of community-acquired pneumonia with sepsis. hospital course: Patient was admitted for sepsis and acute hypoxic respiratory failure secondary to multilobar pneumonia and immunocompromised patient. Her MRSA swab was negative so vancomycin was discontinued. She was treated with IV Zosyn to cover g negatives and g positives. Was seen by infectious disease who start patient on atovaquone for possible Pneumocystis though this appears to be less likely. Was also started on steroids for inflammatory component had significant improvement. Was seen by Pulmonary recommended prednisone taper and course of Levaquin we will follow up with Pulmonary as outpatient and repeat imaging in about 6 weeks. Course complicated by acute hypokalemia which was replaced. For CLL follows at [facility]. Patient was weaned off oxygen and is now ambulating on room air. Time Attestation Discharge Coordination Time (in mins): 32 Quality: Safe Use of Opioids Does Pt have an Active Cancer Diagnosis on the Problem List?: No Quality: Stroke Does the patient have a stroke diagnosis?: No Physical Exam Vital Signs: Vital Signs: Last Vital Signs Temp 97.0 F 06/01/24 08:00 Pulse 62 06/01/24 08:00 Resp 18 06/01/24 08:00 BP 128/67 06/01/24 08:00 Pulse Ox 96 06/01/24 08:00 O2 Del Method Nasal Cannula 06/01/24 08:00 O2 Flow Rate 1.0 06/01/24 08:00 BMI result Body Mass Index 20.3 Const: General: no acute distress and alert Nutritional Appearance: not obese Orientation/consciousness: Other orientation findings ( oriented) HEENT: Head: Yes atraumatic Eyes: General: appearance normal, both eyes and all related structures Sclerae: sclerae normal EOM: EOMs intact bilaterally Neck: Neck: Yes supple Lymphatic: no lymphadenopathy noted Resp: Effort & Inspection: normal respiratory effort and no use of accessory muscles Auscultation: clear to auscultation bilaterally Cardio: Rate: regular rate Rhythm: regular rhythm Heart sounds: no gallops, no murmurs and no rubs Skin: General skin exam: other ( warm) Extrem: General: No clubbing, No cyanosis and No edema DS: Data Data Completed and Pending Labs on day of discharge: Laboratory Results - last 24 hr 06/01/24 06/01/24 06/01/24 05:30 08:45 09:19 WBC 15.2 H RBC 4.46 Hgb 11.9 L Hct 36.2 L MCV 81.2 MCH 26.7 L MCHC 32.9 RDW 13.8 Plt Count 328 MPV 10.0 Immature Gran % (Auto) Cancelled Neut % (Auto) Cancelled Lymph % (Auto) Cancelled [place] % (Auto) Cancelled Eos % (Auto) Cancelled Baso % (Auto) Cancelled Lymph # (Auto) Cancelled [place] # (Auto) Cancelled Eos # (Auto) Cancelled Baso # (Auto) Cancelled Abs Immat Gran (auto) Cancelled Absolute Neuts (auto) Cancelled Absolute Nucleated RBC 0.000 Nucleated RBC % (auto) 0.0 Neutrophils % (Manual) 80 H Band Neutrophils % 5 Lymphocytes % (Manual) 6 L Atypical Lymphs % (Man) Cancelled Monocytes % (Manual) 1 L Eosinophils % (Manual) Cancelled Basophils % (Manual) 2 Metamyelocytes % 3 Myelocytes % 2 Promyelocytes % 1 Blast Cells % (Manual) Cancelled Plasma Cell % (Manual) Cancelled Abs Neuts (Manual) 12.9 H Lymphocytes # (Manual) 0.9 L Atyp Lymphs # (Manual) Cancelled Monocytes # (Manual) 0.2 Eosinophils # (Manual) Cancelled Basophils # (Manual) 0.3 H Metamyelocytes # 0.5 Myelocytes # 0.3 Promyelocytes # 0.2 Blast Cells # Cancelled Plasma Cell # (Manual) Cancelled Nucleated RBCs Cancelled Differential Comment Cancelled Hypersegmented Neuts Cancelled Smudge Cells Cancelled Toxic Granulation PRESENT Toxic Vacuolation Cancelled Dohle Bodies Cancelled Gee Rods Cancelled WBC Morphology Comment Cancelled Platelet Estimate NORMAL Large Platelets PRESENT Giant Platelets Cancelled Plt Morphology Comment NOTED RBC Morphology NOTED Polychromasia 1+ (0-2) Hypochromasia Cancelled Basophilic Stippling Cancelled Microcytosis Cancelled Macrocytosis Cancelled Spherocytes Cancelled Pappenheimer Bodies Cancelled Sickle Cells Cancelled Target Cells Cancelled Tear Drop Cells Cancelled Ovalocytes Cancelled Stomatocytes Cancelled [place] Bodies Cancelled Erick Cells 1+ (0-2) Acanthocytes (Spur) Cancelled Rouleaux Cancelled Schistocytes Cancelled ESR 65 H Sodium 142 Potassium 4.2 D Chloride 105 Carbon Dioxide 25 Anion Gap 16 BUN 9 Creatinine 0.57 Estim Creat Clear Calc 88.2 Estimated GFR > 60 Random Glucose 161 H Calcium 9.1 Magnesium 2.4 Respiratory Panel [place] See Note Adenovirus (Rapid PCR) Not Detected B.pert (TEM-PCR) Not Detected B.parapertussis DNA PCR Not Detected C. pneumoniae DNA (PCR) Not Detected Coronavirus OC43 (PCR) Not Detected Coronavirus HKU1 (PCR) Not Detected Coronavirus 229E (PCR) Not Detected Coronavirus NL63 (PCR) Not Detected Human Metapneumovir PCR Not Detected Influenza A (RT-PCR) Not Detected Influenza B (RT-PCR) Not Detected M. pneumoniae (PCR) Not Detected Parainfluenza 1 (PCR) Not Detected Parainfluenza 2 (PCR) Not Detected Parainfluenza 3 (PCR) Not Detected Parainfluenza 4 (PCR) Not Detected RSV (PCR) Not Detected Entero/Rhino (PCR) Not Detected SARS-CoV-2 RNA (RT-PCR) Not Detected Preliminary micro results at discharge 05/29/24 13:06 Blood Culture - Preliminary Blood - Venous No growth after 48 hours. 05/29/24 13:07 Blood Culture - Preliminary Blood - Venous No growth after 48 hours. Discharge Plan Discharge Anticipated Discharge Date/Time: 06/01/24 13:08 Patient Disposition: Home, Self-Care Discharge Diagnosis: pneumonia vs pneumonitis Referrals: Darlene Rodriguez MD [Primary Care Provider] - 1 Week Jewel Luo MD [Physician] - 2 Weeks Discharge Medications: New prednisone 20 mg tablet 40 mg PO DAILY Qty: 21 0RF Rx Instructions: 40mg daily for 7 days then 20mg daily for 7 days levofloxacin 500 mg tablet 500 mg PO DAILY Qty: 10 0RF Continued cholecalciferol (vitamin D3) [Vitamin D3] 50 mcg (2,000 unit) Capsule 50 mcg PO DAILY vitamin B complex Tablet 1 tab PO DAILY Discharge Orders: Discharge Order (Routine); Ordered 06/01/24 Ordered By: Tyson Spears Diet: Advance to usual diet Activity on Discharge: As tolerated Stand Alone Forms: Patient Portal Discharge page Print Language: Maltese Other Ambulatory Orders: CT chest wo IV con (Routine) Timeframe: 6 Weeks Facility: [facility] - Location: CT Scan Ordered By: Tyson Spears Care Plan Goals: recovery Health Concerns: pna, pneumonitis Plan of Treatment: prednisone taper, levaquin course follow up pulmonary follow up ct chest in 6 weeks Assessment: see above
[2024-06-02 20:27] LABS: Strep Pneumo Ag urine Not Detected (Not Detected)
[2024-06-07 03:28] LABS: Legionella Ag Urine Not Detected (Not Detected)
== END 2024-06-01 13:40 | disposition home or self-care (01) | DRG 720 ==
LOC: HO.ED 11:23 → HO.EDOVER 13:38 → HO.S3 05-30 08:00
PROVIDERS: Internal Medicine; Internal Medicine Pulmonary Disease; Admitting Provider Physician Assistant; Emergency Provider Student in an Organized Health Care Education/Training Program; PCP Internal Medicine; Visit Provider Internal Medicine
DX: A41.9 Sepsis, unspecified organism (principal); J96.01 Acute respiratory failure with hypoxia; D84.9 Immunodeficiency, unspecified; E87.6 Hypokalemia; J18.9 Pneumonia, unspecified organism; C91.11 Chronic lymphocytic leukemia of B-cell type in remission; Z20.822 Contact with and (suspected) exposure to COVID-19; Z79.899 Other long term (current) drug therapy
CPT/HCPCS: 0241U; 36415; 71046; 71250; 80048; 81001; 83605; 83615; 83735; 85007; 85025; 85027; 85652; 87040; 87086; 87449; 87633; 87640; 87641; 87899; 99285; J0692; J1650; J2543; J2919; J3370

== ENCOUNTER → 2024-05-29 08:14 | Outpatient (BNV) | payer BC, SELFPAY | PROVIDERS: PCP Internal Medicine; Visit Provider Radiology Diagnostic Radiology | DX: R91.8 Other nonspecific abnormal finding of lung field (principal) | CPT/HCPCS: 71046 ==

== ENCOUNTER 2024-05-29 13:38 | Outpatient (BNV) | payer BC, SELFPAY | END 2024-05-31 12:36 | PROVIDERS: Admitting Provider Physician Assistant; Emergency Provider Student in an Organized Health Care Education/Training Program; PCP Internal Medicine; Visit Provider Radiology Diagnostic Radiology | DX: R91.8 Other nonspecific abnormal finding of lung field (principal) | CPT/HCPCS: 71250 ==

== ENCOUNTER → 2024-05-29 13:38 | Outpatient (BNV) | payer BC, SELFPAY | PROVIDERS: Admitting Provider Physician Assistant; Emergency Provider Student in an Organized Health Care Education/Training Program; PCP Internal Medicine; Visit Provider Internal Medicine | DX: J18.9 Pneumonia, unspecified organism (principal); A41.9 Sepsis, unspecified organism | CPT/HCPCS: 99222 ==

== ENCOUNTER → 2024-05-29 13:38 | Outpatient (BNV) | payer BC, SELFPAY | PROVIDERS: Admitting Provider Physician Assistant; Emergency Provider Student in an Organized Health Care Education/Training Program; PCP Internal Medicine; Visit Provider Physician Assistant | DX: C91.10 Chronic lymphocytic leukemia of B-cell type not having achieved remission (principal); J18.9 Pneumonia, unspecified organism | CPT/HCPCS: 99232; 99239; 99499 ==

== ENCOUNTER → 2024-05-29 13:38 | Outpatient (BNV) | payer BC, SELFPAY | PROVIDERS: Admitting Provider Physician Assistant; Emergency Provider Student in an Organized Health Care Education/Training Program; PCP Internal Medicine; Visit Provider Internal Medicine Pulmonary Disease | DX: J96.01 Acute respiratory failure with hypoxia (principal); R93.89 Abnormal findings on diagnostic imaging of other specified body structures | CPT/HCPCS: 99232 ==

== ENCOUNTER 2024-06-09 08:05 | Outpatient (AMB) | payer BC, SELFPAY ==
[2024-06-09 08:08] VITALS: BP 108/70; PULSE 75; O2SAT 100
--- NOTE | 2024-06-09 08:08 | AM.OFFWIN_ITS ---
Intake Vital Signs 06/09/24 08:08 Weight 117 lb BP 108/70 Blood Pressure Location Lt brachial Position Sitting Pulse 75 Pulse Source Pulse Oximeter Pulse Oximetry (%) 100 Oxygen Delivery Method Room Air Intake Visit Reasons: EP Allergic reaction/med Intake Note: Patient here because she was in the hospital for pneumonia and was put on prednisone and levofloxacin and this morning she woke up with rash on torso. Patient Tobacco Use Status: Never used Tobacco Allergies sulfamethoxazole [From Bactrim] Allergy (Severe, Verified 06/09/24 08:25) rash trimethoprim [From Bactrim] Allergy (Severe, Verified 06/09/24 08:25) rash codeine [Codeine] Allergy (Unknown, Verified 06/09/24 08:25) RASH cephalexin Adverse Reaction (Mild, Verified 06/09/24 08:25) rash Levaquin Adverse Reaction (Intermediate, Uncoded 06/09/24 13:58) Rash Medication List - Last Reconciled 06/09/24 by Jose Zamudio MD cholecalciferol (vitamin D3) (Vitamin D3) 50 mcg PO DAILY prednisone 40 mg (2 x 20 mg) PO DAILY vitamin B complex 1 tab PO DAILY Do you need a note to return to daycare/school/sports/work: No HPI EP Allergic reaction/med HPI Details History - The patient is a 59-year-old female pr esenting for follow-up care for pneumonia and an allergic reaction to medication. - The patient was diagnosed with pneumon ia approximately one week prior and was hospitalized for four days accordingly. - Following discharge, she was prescribe d a ten-day course of Levaquin and prednisone. After seven days of antibiotic usage, she developed a rash, suspecting an allergic reaction, as she had no similar incidents with prednisone before. - The patient's prior CT scan results hi ghlighted multifocal infiltrates and she has an underlying history of leukemia, treated around two to three years ago, which further complicated her pulmonary status post-treatment. - Her oncologist, Dr. Florencio Dahl, [facility] in [place], follows up every three months, with her most recent visit being three weeks ago. Medications - Antibiotics (specific name unmentioned ) for pneumonia, prescribed for ten days; seven pills taken. - Prednisone for pulmonary issues, presc ribed for 21 days. Tapering from two tablets to one daily. - Benadryl for managing allergic reactio ns. Problem List - Pneumonia - Drug hypersensitivity reaction to an a ntibiotic - Leukemia (history of) - Pulmonary infiltrates with persistent abnormalities - Allergic rash Diagnostic results - Multifocal infiltrates noted on CT sca n within the right middle lobe, left upper lobe, and bilateral lower lobes, with persistence documented in chest x- rays since April. [place] [facility] Care The patient's oncologist is Dr. Florencio Dahl, located in [place]. Patient Instructions - Continue taking prednisone as per the tapering schedule. - Begin Benadryl to manage the allergic rash. - stop Levaquin - Monitor the rash and any associated sy mptoms; report if symptoms worsen. - Make sure to complete the prednisone c ourse. - Attend the scheduled follow-up appoint ment to evaluate recovery progress from pneumonia and the allergic reaction. Review of Systems General: No fever no chills neurological: No headaches no dizziness ear nose throat: No sore throat no hearing difficulty no ear pain cardiovascular: No syncope, no chest pain, no palpitations gastrointestinal: No nausea vomiting or diarrhea endocrine: No polyuria polydipsia no heat intolerance genitourinary: No dysuria skin: No new complaints Physical Exam general: No acute distress HEENT: No acute findings neck: Supple respiratory system: Lungs are clear, able to talk in full sentences, no audible wheeze, no stridor cardiovascular: S1-S2 gastrointestinal: No pain, no nausea, no vomiting extremities: No new findings 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 awake oriented x3 motor sensory intact skin: Normal turgor, maculopapular rash present extensively on abdomen PFSH Medical History Herpes simplex CLL (chronic lymphocytic leukemia) Surgical History History of endometrial ablation History of bone marrow biopsy Hx of section Family History Maternal Aunt History of breast cancer Social History Household Members: Spouse and Children Housing: House Are you a primary manager career to a significant other at home: No Do you presently have visiting nurse or other home services: No Unable to assess alcohol history related to: Unknown Patient Tobacco Use Status: Never used Tobacco service: No Current occupational status: employed 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 Sexual orientation: Straight/Heterosexual Gender identity: Female Physical Exam Vital Signs: Last Vital Signs Pulse 75 06/09/24 08:08 BP 108/70 06/09/24 08:08 Pulse Ox 100 06/09/24 08:08 Oxygen Delivery Method Room Air 06/09/24 08:08 Assessment & Plan Assessment & Plan (1) Allergic reaction caused by a drug: Code(s): T78.40XA - Allergy, unspecified, initial encounter Qualifiers: Encounter type: initial encounter Qualified Code(s): T78.40XA - Allergy, unspecified, initial encounter (2) Pneumonia: Code(s): J18.9 - Pneumonia, unspecified organism Qualifiers: Pneumonia type: due to unspecified organism Laterality: bilateral Lung location: unspecified part of lung Qualified Code(s): J18.9 - Pneumonia, unspecified organism (3) Drug rash: Code(s): L27.0 - Generalized skin eruption due to drugs and medicaments taken internally (4) CLL (chronic lymphocytic leukemia): Code(s): C91.10 - Chronic lymphocytic leukemia of B-cell type not having achieved remission Plan History - The patient is a 59-year-old female presenting for follow-up care for pneumonia and an allergic reaction to medication. - The patient was diagnosed with pneumonia approximately one week prior and was hospitalized for four days accordingly. - Following discharge, she was prescribed a ten-day course of Levaquin and prednisone. After seven days of antibiotic usage, she developed a rash, suspecting an allergic reaction, as she had no similar incidents with prednisone before. - The patient's prior CT scan results highlighted multifocal infiltrates and she has an underlying history of leukemia, treated around two to three years ago, which further complicated her pulmonary status post-treatment. - Her oncologist, Dr. Florencio Dahl, based in [place], follows up every three months, with her most recent visit being three weeks ago. Medications - Antibiotics (specific name unmentioned) for pneumonia, prescribed for ten days; seven pills taken. - Prednisone for pulmonary issues, prescribed for 21 days. Tapering from two tablets to one daily. - Benadryl for managing allergic reactions. Problem List - Pneumonia - Drug hypersensitivity reaction to an antibiotic - Leukemia (history of) - Pulmonary infiltrates with persistent abnormalities - Allergic rash Diagnostic results - Multifocal infiltrates noted on CT scan within the right middle lobe, left upper lobe, and bilateral lower lobes, with persistence documented in chest x- rays since April. [place] [facility] The patient's oncologist is Dr. Florencio Dahl, located in [place]. Patient Instructions - Continue taking prednisone as per the tapering schedule. - Begin Benadryl to manage the allergic rash. - stop Levaquin - Monitor the rash and any associated symptoms; report if symptoms worsen. - Make sure to complete the prednisone course. - Attend the scheduled follow-up appointment to evaluate recovery progress from pneumonia and the allergic reaction. Coding Level of Care Code Est Pt Level 4 (36620) Diagnoses Allergic reaction to drug, initial encounter T78.40XA Encounter type: initial encounter Pneumonia of both lungs due to infectious organism, unspecified part of lung J18.9 Pneumonia type: due to unspecified organism Laterality: bilateral Lung location: unspecified part of lung Drug rash L27.0 CLL (chronic lymphocytic leukemia) C91.10
== END 2024-06-09 09:08 | disposition home or self-care (01) ==
PROVIDERS: PCP Internal Medicine; Visit Provider Internal Medicine
DX: J18.9 Pneumonia, unspecified organism (principal); L27.0 Generalized skin eruption due to drugs and medicaments taken internally; C91.10 Chronic lymphocytic leukemia of B-cell type not having achieved remission

== ENCOUNTER 2024-06-16 13:03 | Outpatient (AMB) | payer BC, SELFPAY ==
[2024-06-16 13:15] VITALS: BP 118/68; PULSE 71; O2SAT 93; BMI 21.0
--- NOTE | 2024-06-16 13:15 | A.OFFPC_ITS ---
Vital Signs 06/16/24 13:15 Height 5 ft 3 in Weight 118 lb 6 oz BMI 21.0 BP 118/68 Blood Pressure Location Lt brachial Position Sitting Pulse 71 Pulse Source Pulse Oximeter Pulse Oximetry (%) 93 Oxygen Delivery Method Room Air Intake Visit Reasons: EDF Allergies sulfamethoxazole [From Bactrim] Allergy (Severe, Verified 06/16/24 13:16) rash trimethoprim [From Bactrim] Allergy (Severe, Verified 06/16/24 13:16) rash codeine [Codeine] Allergy (Unknown, Verified 06/16/24 13:16) RASH cephalexin Adverse Reaction (Mild, Verified 06/16/24 13:16) rash Levaquin Adverse Reaction (Intermediate, Uncoded 06/09/24 13:58) Rash Medication List - Last Reconciled 06/16/24 by Jose Zamudio MD cholecalciferol (vitamin D3) (Vitamin D3) 50 mcg PO DAILY vitamin B complex 1 tab PO DAILY Tobacco use date assessed: 06/16/24 Dental Screening Dental Screen Date: 06/16/24 Did you have a dental visit in the last 12 months?: Yes Did you have a dental problem in the last 6 months where you did not have access to dental care?: No Was dental information given to patient?: Patient has dentist HPI EDF HPI Details Hospital discharge follow-up The patient is a 59-year-old female presenting with follow-up for resolved rash [which started after taking antibiotic given to her at discharge for pneumonia Levaquin] and monitoring of pneumonia. - Initial pneumonia diagnosis noted on May 06. When she was evaluated in emergency room - was provided with treatment doxycyclin e and cefuroxime but it was ineffective; patient experienced persistent congestion, fatigue, and thick mucus formation. - Returned to work prematurely, leading to exacerbation of symptoms and dehydration, ultimately requiring hospitalization for IV treatment and further management. - Developed resolved rash few days post- hospitalization after taking medication Levaquin; she was seen in walk-in clinic and medication was stopped, and was told to completed prednisone treatment - Currently experiencing improvement wit h no recent chest pain, shortness of breath, or cough, and noted no abnormal nasal discharge or further significant congestion beyond mild, residual symptoms. Patient have a order placed force repeat CT scan in a month Problem List - has history of CLL - bilateral pneumonia Diagnostic results - CT scan: Consolidation in the right mi ddle lung lobe, with increased prominence similar to prior examination. - Chest X-ray on May 06: Consolid ation in the lower lung consistent with pneumonia. Patient Instructions - Call or seek care if symptoms recur or worsen. - CT scan arranged for mid-June for fol low-up without contrast. Review of Systems General: No fever no chills neurological: No headaches no dizziness ear nose throat: No sore throat no hearing difficulty no ear pain cardiovascular: No syncope, no chest pain, no palpitations gastrointestinal: No nausea vomiting or diarrhea endocrine: No polyuria polydipsia no heat intolerance genitourinary: No dysuria skin: No new complaints Physical Exam general: No acute distress HEENT: No acute findings neck: Supple respiratory system: Able to talk in full sentences, no audible wheeze, no stridor, slight difference in breath sounds on both sides cardiovascular: S1-S2 regular in rate and rhythm gastrointestinal: No pain extremities: No new findings 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 x3 motor sensory intact skin: Rash has dissipated, normal turgor [facility] Medical History Herpes simplex CLL (chronic lymphocytic leukemia) Surgical History History of endometrial ablation History of bone marrow biopsy Hx of section Family History Maternal Aunt History of breast cancer Social History Household Members: Spouse and Children Housing: House Are you a primary animal caretaker supervisor to a significant other at home: No Do you presently have visiting nurse or other home services: No Unable to assess alcohol history related to: Unknown Patient Tobacco Use Status: Never used Tobacco e-Cigarette/Vaping Use: Never Used service: No Current occupational status: employed 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 03482 - PHQ-9 Billing: Yes Source: Developed by Drs. Bran Hickman, Saumya Valdez, Arun Mendoza and colleagues, with an educational alex from [employer]. Thrive Questionnaire Date Thrive assessed: 05/30/24 AUDIT C Alcohol Use Questionnaire (AUDIT-C) 1. How often do you have a drink containing alcohol?: Monthly or less 2. How many drinks containing alcohol do you have on a typical day when you are drinking?: 1 or 2 3. How often do you have six or more drinks on one occasion?: Never Total Score: 1 Score Reviewed/Action Taken: Yes JASWANT-7 AMB Questionnaire JASWANT-7 Date JASWANT - 7 assessed: 06/16/24 Feeling nervous, anxious, or on edge: 0 = Not at all Not being able to stop or control worryin = Not at all Worrying too much about different things: 0 = Not at all Trouble relaxin = Not at all Being so restless that it is hard to sit still: 0 = Not at all Becoming easily annoyed or irritable: 0 = Not at all Feeling afraid as if something awful might happen: 0 = Not at all Total JASWANT-7 score (0-4 normal; 5-9 mild; 10-14 moderate; 15-21 severe): 0 Source: Developed by Drs. Bran Hickman, Saumya Valdez, Arun Mendoza and colleagues, with an educational alex from [employer]. JASWANT-7 Assessment Billing JASWANT-7 Assessment Tool: JASWANT-7 Assessment 66814 Physical exam (Primary Care) Vital Signs: Last Vital Signs Pulse 71 06/16/24 13:15 BP 118/68 06/16/24 13:15 Pulse Ox 93 06/16/24 13:15 Oxygen Delivery Method Room Air 06/16/24 13:15 BMI result Body Mass Index 21.0 Tobacco/Smoking Status: Tobacco use Status Tobacco use date assessed 06/16/24 06/16/24 13:19 Patient Tobacco Use Status Never used Tobacco 06/16/24 13:19 e-Cigarette/Vaping Use Never Used 06/16/24 13:19 Thrive Assessment: Date of Thrive Assessment Date Thrive assessed 05/30/24 06/16/24 13:19 Coding Level of Care Code Est Pt Level 4 (63748) Diagnoses Hospital discharge follow-up Z09 Pneumonia of both lungs due to infectious organism, unspecified part of lung J18.9 Pneumonia type: due to unspecified organism Lung location: unspecified part of lung CLL (chronic lymphocytic leukemia) C91.10 Additional Codes JASWANT-7 Assessment Billing - JASWANT-7 Assessment Tool: JASWANT-7 Assessment 91830 ([id number]) PHQ-9 - 51017 - PHQ-9 Billing: Yes ([id number]) Assessment & Plan Assessment & Plan (1) Hospital discharge follow-up: Code(s): Z09 - Encounter for follow-up examination after completed treatment for conditions other than malignant neoplasm Category: Medical (2) Bilateral pneumonia: Code(s): J18.9 - Pneumonia, unspecified organism Category: Medical Qualifiers: Pneumonia type: due to unspecified organism Lung location: unspecified part of lung Qualified Code(s): J18.9 - Pneumonia, unspecified organism (3) CLL (chronic lymphocytic leukemia): Code(s): C91.10 - Chronic lymphocytic leukemia of B-cell type not having achieved remission Category: Medical Plan Hospital discharge follow-up The patient is a 59-year-old female presenting with follow-up for resolved rash [which started after taking antibiotic given to her at discharge for pneumonia Levaquin] and monitoring of pneumonia. - Initial pneumonia diagnosis noted on May 06. When she was evaluated in emergency room - was provided with treatment doxycycline and cefuroxime but it was ineffective; patient experienced persistent congestion, fatigue, and thick mucus formation. - Returned to work prematurely, leading to exacerbation of symptoms and dehydration, ultimately requiring hospitalization for IV treatment and further management. - Developed resolved rash few days post-hospitalization after taking medication Levaquin; she was seen in walk-in clinic and medication was stopped, and was told to completed prednisone treatment - Currently experiencing improvement with no recent chest pain, shortness of breath, or cough, and noted no abnormal nasal discharge or further significant congestion beyond mild, residual symptoms. Patient have a order placed force repeat CT scan in a month Problem List - has history of CLL - bilateral pneumonia Diagnostic results - CT scan: Consolidation in the right middle lung lobe, with increased prominence similar to prior examination. - Chest X-ray on May 06: Consolidation in the lower lung consistent with pneumonia. Patient Instructions - Call or seek care if symptoms recur or worsen. - CT scan arranged for mid-June for follow-up without contrast.
== END 2024-06-16 13:58 | disposition home or self-care (01) ==
LOC: HO.HMCC 13:04
PROVIDERS: PCP Internal Medicine; Visit Provider Internal Medicine
DX: Z09 Encounter for follow-up examination after completed treatment for conditions other than malignant neoplasm (principal); J18.9 Pneumonia, unspecified organism; C91.10 Chronic lymphocytic leukemia of B-cell type not having achieved remission

== ENCOUNTER → 2024-06-16 13:03 | Outpatient (BNVA) | payer BC, SELFPAY | PROVIDERS: PCP Internal Medicine; Visit Provider Internal Medicine | DX: Z09 Encounter for follow-up examination after completed treatment for conditions other than malignant neoplasm (principal); J18.9 Pneumonia, unspecified organism; C91.10 Chronic lymphocytic leukemia of B-cell type not having achieved remission | CPT/HCPCS: 96127 ==

== ENCOUNTER 2024-07-11 15:15 | Outpatient (AMB) | payer BC, SELFPAY ==
[2024-07-11 15:27] VITALS: BP 110/64; PULSE 76; O2SAT 98; BMI 21.8
--- NOTE | 2024-07-11 15:27 | MHC.OFFVIS ---
Vital Signs 07/11/24 15:27 Height 5 ft 3 in Weight 123 lb BMI 21.8 BP 110/64 Blood Pressure Location Rt brachial Position Sitting Pulse 76 Pulse Source Pulse Oximeter Pulse Oximetry (%) 98 Oxygen Delivery Method Room Air Intake Visit Reasons: Abnormal CT scan/[facility] Follow Up Acoustical Logging Engineer Required: No Database Administration Project Manager: Database Administration Project Manager offered & declined Allergies sulfamethoxazole [From Bactrim] Allergy (Severe, Verified 07/11/24 15:34) rash trimethoprim [From Bactrim] Allergy (Severe, Verified 07/11/24 15:34) rash codeine [Codeine] Allergy (Unknown, Verified 07/11/24 15:34) RASH cephalexin Adverse Reaction (Mild, Verified 07/11/24 15:34) rash Levaquin Adverse Reaction (Intermediate, Uncoded 07/11/24 15:34) Rash Medication List - Last Reconciled 07/11/24 by Flor Cotton LPN cholecalciferol (vitamin D3) (Vitamin D3) 50 mcg PO DAILY vitamin B complex 1 tab PO DAILY HPI HPI Abnormal CT scan/[facility] Follow Up: Details: Melanie is a pleasant 59-year-old female, never smoker, with history of CLL in remission x 2 years s/p chemotherapy following with [facility] and HSV. She was referred by [facility] after recent admission 05/29-06/01 for sepsis and acute hypoxic respiratory failure secondary to multilobar pneumonia and immunocompromised patient. She reports initial symptoms of sinus infection started in February which progressively worsened. She was initially evaluated at [facility] on 05/05 treated for community-acquired pneumonia completing 10 day course of cefuroxime and doxycycline. Symptoms initially improved for a few days then symptoms worsened prompting evaluation on 05/29 due to continued productive cough, nasal congestion, sinus pressure and fever ll for about 3 days and then symptoms recurred. In ED patient with leukocytosis of 13.6. Negative for COVID-19, flu, RSV. Chest x-ray shows consolidative opacities in the right middle lobe and lingula similar to prior exam though more extensive, possibly recurrent versus persistent bilateral pneumonia. She was started on Vanco, which was d/c due to negative MRSA swab, switched to IV Zosyn as well as steroids for inflammatory component and noted significant improvement. Ultimately discharged on room air with prednisone taper and course of Levaquin with recommendation for repeat CT chest. Of note, she has a h/o possible pneumonitis with prior waxing and waning ggo on imaging. She also [facility] and [facility]. At this time, she denies any respiratory symptoms. She denies prior h/o asthma. She denies h/o recurrent URI. She denies any pertinent family history. [facility] Medical History Herpes simplex CLL (chronic lymphocytic leukemia) Surgical History History of endometrial ablation History of bone marrow biopsy Hx of section Family History Maternal Aunt History of breast cancer Social History Household Members: Spouse and Children Housing: House Are you a primary residential caregiver to a significant other at home: No Do you presently have visiting nurse or other home services: No Unable to assess alcohol history related to: Unknown Patient Tobacco Use Status: Never used Tobacco e-Cigarette/Vaping Use: Never Used service: No Current occupational status: employed 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 Sexual orientation: Straight/Heterosexual Gender identity: Female Cognitive needs: No Hearing needs: No Vision needs: Yes Review of Systems Const Denies chills, Denies excessive sweating, Denies fever(s), Denies headache(s) and Denies night sweats Eyes Denies dry eyes, Denies irritation and Denies itchy eyes ENT Reports Normal hearing present, Denies headache(s), Denies nasal congestion, Denies nasal discharge, Denies post nasal drip and Denies sore throat Card Denies chest pain, Denies chest pain at rest, Denies chest pain with activity, Denies claudication, Denies leg edema, Denies dyspnea, Denies dyspnea on exertion, Denies orthopnea and Denies paroxysmal nocturnal dyspnea Resp Denies chest congestion, Denies cough, Denies excessive phlegm production, Denies pain on inspiration, Denies pain with cough, Denies dyspnea, Denies dyspnea on exertion, Denies stridor and Denies wheezing Musc Denies myalgias Neuro Reports Normal hearing present and Denies headache(s) Endo Denies excessive sweating Sandro/Lymph Denies lymphadenopathy Aller/Immun Denies itchy eyes, Denies seasonal rhinorrhea and Denies wheezing Physical Exam Vital Signs: Last Vital Signs Pulse 76 07/11/24 15:27 BP 110/64 07/11/24 15:27 Pulse Ox 98 07/11/24 15:27 Oxygen Delivery Method Room Air 07/11/24 15:27 BMI result Body Mass Index 21.8 Const General: cooperative, healthy appearing, comfortable, no acute distress, well developed and alert Orientation/consciousness: patient oriented x3 Limitations: no limitations HEENT Head: Yes normal to inspection, Yes normocephalic and Yes atraumatic Ears: hearing grossly normal bilaterally and external ears normal Eyes General: appearance normal, both eyes and all related structures Eyelids: Yes eyelids normal Sclerae: sclerae normal EOM: EOMs intact bilaterally Neck Neck: Yes normal visual inspection and Yes no lymphadenopathy Lymphatic: no lymphadenopathy noted Chest Chest palpation & inspection: normal inspection of the chest Resp Effort & Inspection: normal respiratory effort, able to speak in complete sentences, no audible wheezes, no cough, no stridor, not tachypneic, no tripod positioning and no use of accessory muscles Auscultation: clear to auscultation bilaterally Cardio Jugular venous distension: no JVD Rate: regular rate Rhythm: regular rhythm Skin Other: warm, dry General skin exam: no rashes or lesions noted Neuro General: patient oriented x3 Cranial nerves: Yes Normal hearing present Cognition (Neuro): normal cognition Gait exam (Neuro): Normal gait present Extrem General: Yes normal to inspection, Yes capillary refill normal, Yes no clubbing, cyanosis or edema and Yes no pedal edema Psych Appearance: grossly normal and well kempt Speech and movement: Normal speech and movement present and Clear speech present Affect: normal affect Attitude: cooperative Thought process: Normal thought process present Thought content: Normal thought content present Insight: Good insight present (Psych) Judgement: Good judgement present (Psych) Results Reviewed Results Reviewed: [address] [address] [address] Scan Report Signed Patient: Melanie Whitman MR#: [id number] : 1965 Acct:[id number] Age/Sex: 59 / F ADM Date: 05/29/24 Loc: HO.S3 347-[address]: Tyson Spears MD Ordering Physician: Tyson Spears MD Date of Service: 05/31/24 Procedure(s): CT chest wo IV con Accession Number(s): [id number] cc: Darlene Rodriguez MD; Tyson Spears MD~ Report Number: [id number]: Total DLP = 100.00 mGy-cm EXAMINATION: CT CHEST WITHOUT IV CONTRAST INDICATION: bilateral crackles COMPARISON: Comparison is made with the prior examination dated 07/26/2017. Correlation is also made with chest x-rays dating back to 05/06/2024. TECHNIQUE: Helical CT scan of the chest was performed without intravenous contrast. Coronal and sagittal reformatted images were generated and reviewed. This CT exam was performed with one or more of the following dose reduction techniques: automated exposure control, adjustment of the mA and/or kV according to patient size, use of iterative reconstruction technique. DLP: 100 mGy-cm CHEST: THYROID: The thyroid is unremarkable. LUNGS: There are multifocal groundglass and airspace opacities in both lower lobes. Additional small airspace opacities are seen in the right middle lobe and left upper lobe. MEDIASTINUM: There is no mediastinal lymphadenopathy. LANNY: Evaluation of the hilar regions is limited by lack of intravenous contrast material. CARDIOVASCULATURE: The heart is normal in size. There is no pericardial effusion. The thoracic aorta is normal in caliber. DEGREE OF CORONARY CALCIFICATION: none PLEURA: There is no pleural effusion. No pneumothorax. MAIN AIRWAYS: The mainstem bronchi and proximal branches are patent. AXILLA: There is no axillary lymphadenopathy. BONES AND SOFT TISSUES: Unremarkable UPPER ABDOMEN: The visualized portions of the liver, spleen, and adrenals have an unremarkable unenhanced appearance. There is cholelithiasis. CT/CT chest wo IV con IMPRESSION: Multifocal infiltrates in the right middle lobe, left upper lobe, and bilateral lower lobes. Given the persistence of these abnormalities on chest x-ray since 05/06/2024, atypical factious and noninfectious etiologies should be considered. Electronically signed by: Bran Childers MD 05/31/2024 01:05 PM EDT RP Dictated By: Bran Childers MD Signed By: <Electronically signed by Bran Childers MD in OV> 05/31/24 1305 DD/ 1236 TD/TT: 05/31/24 1251 Xerox Machine Operator: Assessment & Plan Assessment & Plan (1) History of acute respiratory failure: Code(s): Z87.09 - Personal history of other diseases of the respiratory system Category: Medical (2) Abnormal CT scan, chest: Code(s): R93.89 - Abnormal findings on diagnostic imaging of other specified body structures Category: Medical (3) CLL (chronic lymphocytic leukemia): Code(s): C91.10 - Chronic lymphocytic leukemia of B-cell type not having achieved remission Category: Medical Plan At this time, Melanie reports respiratory symptoms have significantly improved since completing course of prednisone. Will repeat chest CT in 4 weeks to assess for resolution of multifocal pneumonia. Will also send for PFT to assess overall lung function. She will be following up with [facility] to revisit possible IVIG, she notes prior immune labs were suboptimal. All questions were answered and patient is in agreement of plan. Will follow up to review results or sooner if needed. Orders: Orders CT chest wo IV con 2 Weeks J18.9 - Pneumonia, unspecified organism PFT pulmonary function test Today Z87.09 - Personal history of other diseases of the respiratory system Coding Level of Care Code New Pt Level 4 (55482) Diagnoses History of acute respiratory failure Z87.[address] scan, chest R93.89 CLL (chronic lymphocytic leukemia) C91.10
== END 2024-07-11 16:10 | disposition home or self-care (01) ==
LOC: HO.HPSW 15:15
PROVIDERS: PCP Internal Medicine; Visit Provider Nurse Practitioner Family
DX: Z87.09 Personal history of other diseases of the respiratory system (principal); R93.89 Abnormal findings on diagnostic imaging of other specified body structures; C91.10 Chronic lymphocytic leukemia of B-cell type not having achieved remission
CPT/HCPCS: 99204

== ENCOUNTER 2024-08-24 14:49 | Outpatient (REF) | payer BC, SELFPAY ==
--- NOTE | ~2024-08-24 | CT_ITS ---
CLINICAL HISTORY: J18.9 - Pneumonia, unspecified organism CT chest without contrast Comparison: CT/AR/SR - CT CHEST WO IV CON - 05/31/24 12:36 EDT CR - XR CHEST 1V - 05/06/24 03:[address]/SR - CHEST WITH IV CONTRAST [id number] - 07/26/17 09:44 EDT Findings: The heart size is normal. The visualized thyroid and mediastinum are unremarkable. There has been near complete interval resolution of the previous multifocal pneumonia. Minimal persistent linear densities in the subpleural region noted. No effusion. No pneumothorax. No suspicious lesion. The visualized upper abdomen demonstrates gallstones. No acute osseous finding. Impression: Near-complete resolution of the previous multifocal pneumonia with some residual postinflammatory and postinfectious changes. This document has been electronically signed by: Randal Montgomery MD on 08/25/2024 09:01:19
--- NOTE | 2024-08-24 14:50 | PFT_ITS ---
Flows: FEV1: 92 % of predicted at 2.27 L FVC: 90 % of predicted at 2.79 L FEV1/FVC: 81 % Bronchodilator response: Present in small to medium airways only Volumes: Total lung capacity: 89 % of predicted at 4.40 L Residual volume: 92 % of predicted at 1.50 L Slow vital capacity: 87 % of predicted at 2.90 L Expiratory reserve volume: 119 % of predicted at 0.98 L Diffusion capacity: Mildly decreased, corrects to normal after adjustment for alveolar ventilation. Impression: No obstructive or restrictive ventilatory defect. Bronchodilator response is present in small to medium airways only. Isolated defect in diffusion capacity suggests pulmonary edema. MTDD
[2024-08-24 15:38] VITALS: PULSE 66; O2SAT 98
== END 2024-08-24 14:50 | disposition home or self-care (01) ==
LOC: HO.RESP 14:49
PROVIDERS: PCP Internal Medicine; Visit Provider Nurse Practitioner Family
DX: J18.9 Pneumonia, unspecified organism (principal); Z87.09 Personal history of other diseases of the respiratory system
CPT/HCPCS: 71250; 94010; 94640; 94727; 94729

== ENCOUNTER → 2024-08-24 14:50 | Outpatient (BNV) | payer BC, SELFPAY | PROVIDERS: PCP Internal Medicine; Visit Provider Internal Medicine Pulmonary Disease | DX: Z87.09 Personal history of other diseases of the respiratory system (principal) | CPT/HCPCS: 94060; 94727; 94729 ==

== ENCOUNTER → 2024-08-24 16:11 | Outpatient (BNV) | payer BC, SELFPAY | PROVIDERS: PCP Internal Medicine; Visit Provider Radiology Vascular & Interventional Radiology | DX: J18.8 Other pneumonia, unspecified organism (principal) | CPT/HCPCS: 71250 ==

== ENCOUNTER 2024-08-31 14:15 | Outpatient (AMB) | payer BC, SELFPAY ==
--- NOTE | 2024-08-31 14:42 | MHC.OFFWIV ---
Intake Vital Signs 08/31/24 14:45 Weight 124 lb 6 oz BP 108/66 Blood Pressure Location Rt brachial Position Sitting Pulse 71 Pulse Source Pulse Oximeter Temp 98 F Temp Source Oral Pulse Oximetry (%) 98 Oxygen Delivery Method Room Air Intake Visit Reasons: EP Sore throat Intake Note: Patient here for sore throat that started over the weekend. Patient Tobacco Use Status: Never used Tobacco Allergies sulfamethoxazole [From Bactrim] Allergy (Severe, Verified 08/31/24 14:45) rash trimethoprim [From Bactrim] Allergy (Severe, Verified 08/31/24 14:45) rash codeine [Codeine] Allergy (Unknown, Verified 08/31/24 14:45) RASH cephalexin Adverse Reaction (Mild, Verified 08/31/24 14:45) rash Levaquin Adverse Reaction (Intermediate, Uncoded 08/31/24 14:45) Rash Do you need a note to return to daycare/school/sports/work: No HPI HPI Comments History of Present Illness Details History of Present Illness - The patient is a 59-year-old female presenting with a sore throat. She states that she started with a sore throat on Wednesday. - A tickling in the throat was initially noted over the weekend, advancing to a sore throat by Wednesday. - The condition has worsened, with no cough, fever, ear pain, headache, nasal congestion, or vomiting reported. - The sore throat impairs swallowing, and sleep disturbance due to dryness is noted. - Last night, dryness prompted the use of Advil with some relief observed. - She denies fever, chills, chest pain, SOB, ear pain, congestion, runny nose, sinus pain, abd pain, n/v/d. She denies smoking. She has no sick contacts. Physical Exam General: Cooperative, healthy appearing, comfortable, no acute distress and well developed Head: Normal to inspection Ears: Hearing grossly normal bilaterally, no bulging TMs Nose: Normal external nose present, no sinus pain or pressure Neck: Normal visual inspection and Yes full ROM. Tonsillar adenopathy noted bilaterally. Throat: Erythema and slight swelling to the tonsils bilaterally. No exudates noted. Respiratory: Normal respiratory effort and able to speak in complete sentences. Clear to auscultation bilaterally Cardiovascular: Regular rate and rhythm. Normal S1 and S2 GI: Normal to inspection. Soft to palpation and nontender, no guarding or rebound tenderness noted. Skin: No rashes or lesions noted Patient was informed and verbally consented to the use of an ambient scribe for clinic note documentation during this visit. [facility] Medical History Herpes simplex CLL (chronic lymphocytic leukemia) Surgical History History of endometrial ablation History of bone marrow biopsy Hx of section Family History Maternal Aunt History of breast cancer Social History Household Members: Spouse and Children Housing: House Are you a primary neurocritical care physician to a significant other at home: No Do you presently have visiting nurse or other home services: No Unable to assess alcohol history related to: Unknown Patient Tobacco Use Status: Never used Tobacco e-Cigarette/Vaping Use: Never Used service: No Current occupational status: employed 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 Sexual orientation: Straight/Heterosexual Gender identity: Female Cognitive needs: No Hearing needs: No Vision needs: Yes Review of Systems Const All systems reviewed & are unremarkable except as noted in HPI and below Physical Exam Vital Signs: Last Vital Signs Temp 98 F 08/31/24 14:45 Pulse 71 08/31/24 14:45 BP 108/66 08/31/24 14:45 Pulse Ox 98 08/31/24 14:45 Oxygen Delivery Method Room Air 08/31/24 14:45 Results AMB Rapid Strep AMB Rapid Strep Negative Last Edit by SANTOSH Mix on 08/31/24 15:23 Results Reviewed Results Reviewed: Laboratory Last Values Strep Scn Rapid Clinic Negative 08/31/24 15:19 Assessment & Plan Assessment & Plan (1) Sore throat: Code(s): J02.9 - Acute pharyngitis, unspecified Plan Most likely strep vs viral pharyngitis vs allergies vs post nasal drip rapid was negative centor criteria is a 2 Plan - Hydration and use of Advil recommended for throat discomfort. - Will give her antibiotics due to her symptoms - salt water gargles - drink lots of fluids - diet as tolerated. - Monitored for any increase in symptoms such as fever. - Informed patient to seek care if symptom escalation occurs. Orders: Orders AMB Rapid Strep Screen Today Z13.9 - Encounter for screening, unspecified Medications: New azithromycin For 250 mg dose pack: take 500 mg today (day 1), then 250 mg for 4 days (days 2-5) PO 6 tabs 0RF Coding Level of Care Code Est Pt Level 3 (57885) Diagnoses Sore throat J02.9
[2024-08-31 14:45] VITALS: BP 108/66; PULSE 71; TEMP 36.6; O2SAT 98
== END 2024-08-31 15:37 | disposition home or self-care (01) ==
PROVIDERS: PCP Internal Medicine; Visit Provider Physician Assistant Medical
DX: J02.9 Acute pharyngitis, unspecified (principal)

== ENCOUNTER → 2024-08-31 14:15 | Outpatient (BNVA) | payer BC, SELFPAY | PROVIDERS: PCP Internal Medicine; Visit Provider Physician Assistant Medical | DX: J02.9 Acute pharyngitis, unspecified (principal) | CPT/HCPCS: 87880 ==

== ENCOUNTER 2024-09-15 14:56 | Outpatient (AMB) | payer BC, SELFPAY ==
[2024-09-15 15:01] VITALS: BP 102/68; PULSE 61; O2SAT 97; BMI 21.6
--- NOTE | 2024-09-15 15:01 | MHC.OFFVIS ---
Vital Signs 09/15/24 15:01 Height 5 ft 3 in Weight 122 lb 2 oz BMI 21.6 BP 102/68 Blood Pressure Location Rt brachial Position Sitting Pulse 61 Pulse Source Pulse Oximeter Pulse Oximetry (%) 97 Oxygen Delivery Method Room Air Intake Visit Reasons: Abnormal CT scan Allergies sulfamethoxazole (From Bactrim) Allergy (Severe, Verified 09/15/24 15:03) rash trimethoprim (From Bactrim) Allergy (Severe, Verified 09/15/24 15:03) rash codeine (Codeine) Allergy (Unknown, Verified 09/15/24 15:03) RASH cephalexin Adverse Reaction (Mild, Verified 09/15/24 15:03) rash Levaquin Adverse Reaction (Intermediate, Uncoded 09/15/24 15:03) Rash HPI HPI Abnormal CT scan: Details: Melanie is a pleasant 59-year-old female, never smoker, with history of CLL in remission x 2 years s/p chemotherapy following with [facility], HSV and h/o sepsis and acute hypoxic respiratory failure secondary to multilobar pneumonia and immunocompromised patient 05/2024. Since discharge patient with significant improvements and currently denies any respiratory symptoms. Today she presents to review chest CT to assess for resolution of PNA and PFT results. Of note, patient will be starting IVIG treatment through [facility] in October q 6 weeks. [facility] Medical History Herpes simplex CLL (chronic lymphocytic leukemia) Surgical History History of endometrial ablation History of bone marrow biopsy Hx of section Family History Maternal Aunt History of breast cancer Social History Household Members: Spouse and Children Housing: House Are you a primary healthcare science specialist to a significant other at home: No Do you presently have visiting nurse or other home services: No Unable to assess alcohol history related to: Unknown Patient Tobacco Use Status: Never used Tobacco e-Cigarette/Vaping Use: Never Used service: No Current occupational status: employed 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 Sexual orientation: Straight/Heterosexual Gender identity: Female Cognitive needs: No Hearing needs: No Vision needs: Yes Review of Systems Const Denies chills, Denies excessive sweating, Denies fever(s), Denies headache(s) and Denies night sweats Eyes Denies dry eyes, Denies irritation and Denies itchy eyes ENT Reports Normal hearing present, Denies headache(s), Denies nasal congestion, Denies nasal discharge, Denies post nasal drip and Denies sore throat Card Denies chest pain, Denies chest pain at rest, Denies chest pain with activity, Denies claudication, Denies leg edema, Denies dyspnea, Denies dyspnea on exertion, Denies orthopnea and Denies paroxysmal nocturnal dyspnea Resp Denies chest congestion, Denies cough, Denies excessive phlegm production, Denies pain on inspiration, Denies pain with cough, Denies dyspnea, Denies dyspnea on exertion, Denies stridor and Denies wheezing Musc Denies myalgias Neuro Reports Normal hearing present and Denies headache(s) Endo Denies excessive sweating Sandro/Lymph Denies lymphadenopathy Aller/Immun Denies itchy eyes, Denies seasonal rhinorrhea and Denies wheezing Physical Exam Vital Signs: Last Vital Signs Pulse 61 09/15/24 15:01 BP 102/68 09/15/24 15:01 Pulse Ox 97 09/15/24 15:01 Oxygen Delivery Method Room Air 09/15/24 15:01 BMI result Body Mass Index 21.6 Const General: cooperative, healthy appearing, comfortable, no acute distress, well developed and alert Orientation/consciousness: patient oriented x3 Limitations: no limitations HEENT Head: Yes normal to inspection, Yes normocephalic and Yes atraumatic Ears: hearing grossly normal bilaterally and external ears normal Eyes General: appearance normal, both eyes and all related structures Eyelids: Yes eyelids normal Sclerae: sclerae normal EOM: EOMs intact bilaterally Neck Neck: Yes normal visual inspection and Yes no lymphadenopathy Lymphatic: no lymphadenopathy noted Chest Chest palpation & inspection: normal inspection of the chest Resp Effort & Inspection: normal respiratory effort, able to speak in complete sentences, no audible wheezes, no cough, no stridor, not tachypneic, no tripod positioning and no use of accessory muscles Auscultation: clear to auscultation bilaterally Cardio Jugular venous distension: no JVD Rate: regular rate Rhythm: regular rhythm Skin Other: warm, dry General skin exam: no rashes or lesions noted Neuro General: patient oriented x3 Cranial nerves: Yes Normal hearing present Cognition (Neuro): normal cognition Gait exam (Neuro): Normal gait present Extrem General: Yes normal to inspection, Yes capillary refill normal, Yes no clubbing, cyanosis or edema and Yes no pedal edema Psych Appearance: grossly normal and well kempt Speech and movement: Normal speech and movement present and Clear speech present Affect: normal affect Attitude: cooperative Thought process: Normal thought process present Thought content: Normal thought content present Insight: Good insight present (Psych) Judgement: Good judgement present (Psych) Assessment & Plan Assessment & Plan (1) History of acute respiratory failure: Code(s): Z87.09 - Personal history of other diseases of the respiratory system Category: Medical (2) CLL (chronic lymphocytic leukemia): Code(s): C91.10 - Chronic lymphocytic leukemia of B-cell type not having achieved remission Category: Medical Plan Reviewed PFT which revealed no obstructive or restrictive ventilatory defect. Bronchodilator response is present in small to medium airways only. Isolated defect in diffusion capacity suggests pulmonary edema, however not noted on CT. Reviewed chest CT which revealed near complete resolution of pneumonia. At this time, Melanie denies any respiratory symptoms and has been doing quite well since discharge. She is aware to call if symptoms change. Discussed importance of initiating IVIG due to severity of multifocal pneumonia and h/o CLL, which she should be starting in October through [facility]. All questions were answered and patient is in agreement of plan. Will follow up in 6 months or sooner if needed. Coding Level of Care Code Est Pt Level 4 (93565) Diagnoses History of acute respiratory failure Z87.09 CLL (chronic lymphocytic leukemia) C91.10
== END 2024-09-15 15:27 | disposition home or self-care (01) ==
LOC: HO.HPSW 14:57
PROVIDERS: PCP Internal Medicine; Visit Provider Nurse Practitioner Family
DX: Z87.09 Personal history of other diseases of the respiratory system (principal); C91.10 Chronic lymphocytic leukemia of B-cell type not having achieved remission
CPT/HCPCS: 99214

== ENCOUNTER 2025-03-07 15:34 | Outpatient (AMB) | payer BC, SELFPAY ==
[2025-03-07 15:37] VITALS: BP 100/60; PULSE 55; O2SAT 99; BMI 21.7
--- NOTE | 2025-03-07 15:37 | A.OFFVIS_ITS ---
Vital Signs 03/07/25 15:37 Height 5 ft 3 in Weight 122 lb 4 oz BMI 21.7 BP 100/60 Blood Pressure Location Rt brachial Position Sitting Pulse 55 Pulse Source Pulse Oximeter Pulse Oximetry (%) 99 Oxygen Delivery Method Room Air Intake Visit Reasons: Abnormal CT scan Allergies sulfamethoxazole (From Bactrim) Allergy (Severe, Verified 03/07/25 15:39) rash trimethoprim (From Bactrim) Allergy (Severe, Verified 03/07/25 15:39) rash codeine (Codeine) Allergy (Unknown, Verified 03/07/25 15:39) RASH cephalexin Adverse Reaction (Mild, Verified 03/07/25 15:39) rash Levaquin Adverse Reaction (Intermediate, Uncoded 03/07/25 15:39) Rash HPI HPI Abnormal CT scan: Details: Melanie is a pleasant 59-year-old female, never smoker, with history of CLL in remission x 2 years s/p chemotherapy following with [facility], HSV and h/o sepsis/acute hypoxic respiratory failure secondary to multilobar pneumonia 05/2024. She was initially referred after PNA and repeat chest CT 08/2024 demonstrated near resolution of pneumonia. Since the last visit patient has started IVIG infusions q 6 weeks [address] [facility] ([place], [place]) and has not had any URIs/pneumonias. At this time she denies any respiratory symptoms. She is up to date with all vaccinations. She denies any visits to urgent care or hospitalizations related to respiratory distress since the last visit. [facility] Medical History Herpes simplex CLL (chronic lymphocytic leukemia) Surgical History History of endometrial ablation History of bone marrow biopsy Hx of section Family History Maternal Aunt History of breast cancer Social History Household Members: Spouse and Children Housing: House Are you a primary dog day care attendant to a significant other at home: No Do you presently have visiting nurse or other home services: No Unable to assess alcohol history related to: Unknown Patient Tobacco Use Status: Never used Tobacco e-Cigarette/Vaping Use: Never Used service: No Current occupational status: employed 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 Sexual orientation: Straight/Heterosexual Gender identity: Female Cognitive needs: No Hearing needs: No Vision needs: Yes Review of Systems Const Denies chills, Denies excessive sweating, Denies fever(s), Denies headache(s) and Denies night sweats Eyes Denies dry eyes, Denies irritation and Denies itchy eyes ENT Reports Normal hearing present, Denies headache(s), Denies nasal congestion, Denies nasal discharge, Denies post nasal drip and Denies sore throat Card Denies chest pain, Denies chest pain at rest, Denies chest pain with activity, Denies claudication, Denies leg edema, Denies dyspnea, Denies dyspnea on exertion, Denies orthopnea and Denies paroxysmal nocturnal dyspnea Resp Denies chest congestion, Denies cough, Denies excessive phlegm production, Denies pain on inspiration, Denies pain with cough, Denies dyspnea, Denies dyspnea on exertion, Denies stridor and Denies wheezing Musc Denies myalgias Neuro Reports Normal hearing present and Denies headache(s) Endo Denies excessive sweating Sandro/Lymph Denies lymphadenopathy Aller/Immun Denies itchy eyes, Denies seasonal rhinorrhea and Denies wheezing Physical Exam Vital Signs: Last Vital Signs Pulse 55 03/07/25 15:37 BP 100/60 03/07/25 15:37 Pulse Ox 99 03/07/25 15:37 Oxygen Delivery Method Room Air 03/07/25 15:37 BMI result Body Mass Index 21.7 Const General: cooperative, healthy appearing, comfortable, no acute distress, well developed and alert Orientation/consciousness: patient oriented x3 Limitations: no limitations HEENT Head: Yes normal to inspection, Yes normocephalic and Yes atraumatic Ears: hearing grossly normal bilaterally and external ears normal Eyes General: appearance normal, both eyes and all related structures Eyelids: Yes eyelids normal Sclerae: sclerae normal EOM: EOMs intact bilaterally Neck Neck: Yes normal visual inspection and Yes no lymphadenopathy Lymphatic: no lymphadenopathy noted Chest Chest palpation & inspection: normal inspection of the chest Resp Effort & Inspection: normal respiratory effort, able to speak in complete sentences, no audible wheezes, no cough, no stridor, not tachypneic, no tripod positioning and no use of accessory muscles Auscultation: clear to auscultation bilaterally Cardio Jugular venous distension: no JVD Rate: regular rate Rhythm: regular rhythm Skin Other: warm, dry General skin exam: no rashes or lesions noted Neuro General: patient oriented x3 Cranial nerves: Yes Normal hearing present Cognition (Neuro): normal cognition Gait exam (Neuro): Normal gait present Extrem General: Yes normal to inspection, Yes capillary refill normal, Yes no clubbing, cyanosis or edema and Yes no pedal edema Psych Appearance: grossly normal and well kempt Speech and movement: Normal speech and movement present and Clear speech present Affect: normal affect Attitude: cooperative Thought process: Normal thought process present Thought content: Normal thought content present Insight: Good insight present (Psych) Judgement: Good judgement present (Psych) Assessment & Plan Assessment & Plan (1) History of acute respiratory failure: Code(s): Z87.09 - Personal history of other diseases of the respiratory system Category: Medical (2) CLL (chronic lymphocytic leukemia): Code(s): C91.10 - Chronic lymphocytic leukemia of B-cell type not having achieved remission Category: Medical Plan At this time, Melanie denies any respiratory symptoms and has been doing quite well since initiating IVIG over the last four months. She is aware to call if any respiratory symptoms develop. All questions were answered and patient is in agreement of plan. Will follow up in 9-12 months or sooner if needed. Coding Level of Care Code Est Pt Level 3 (89406) Diagnoses History of acute respiratory failure Z87.09 CLL (chronic lymphocytic leukemia) C91.10
--- OUTSIDE RECORDS SUMMARY | 2025-03-07 20:25 | XMS_ITS | Encounter Summary ---
Author Organization [facility] Address [address] [place] [address] Phone Care Team Providers Care Integrated Pest Management Technician Name Role Phone David March MD Primary Care Provider [phone] Sherri Yang MD Unavailable [phone] Jg Morgan MD, PhD Unavailable [phone] Mary Lucas RN Unavailable [phone] Encounter Details Date Type Department Care Team (Late st Contact Info) Description 10/17/2020 Procedure Pass [facility], [facility] [place], [address], Floor [address] [place] [id number] Social History Tobacco Use Types Packs/Day Years Used Date Smoking Tobacco: Never Smokeless Tobacco: Never Comments Unknown Sex and Gender Information Value Date Recorded Sex Assigned at Female 04/01/2020 8:41 PM EST Legal Sex Female 2:25 PM EDT Gender Identity Female 04/01/2020 8:41 PM EST Sexual Orientation Straight 04/01/2020 8: 41 PM EST documented as of this encounter Plan of Treatment Upcoming Encounters Date Type Department Care Team (Late st Contact Info) Description 03/18/2025 1:00 PM EST Blood Draw Infusion Therapy Services [place] [address], [facility] [address], 7th [place] [address] Jg Morgan MD, PhD [address] [place] [phone] Dexter@[email or web address] Alexandra Suarez RN [address] [place] [phone] Landry@[email or web address] 03/18/2025 2:00 PM EST Infusion Infusion Therapy Services [facility] [address], [address], [address] [place] [address] Jg Morgan MD, PhD [address] [place] [phone] Dexter@[email or web address] Cathy Luciano RN [address] [place] [address] [email or web address] 04/25/2025 10:10 AM EST Blood Draw Laboratory Services, [address], [address]nd [place] [address] Jg Morgan MD, PhD [address] [place] [phone] [email or web address]@[email or web address] 04/25/2025 11:00 AM EST Office Visit [facility], Division of Hematologic Oncology, [address], [address] [place] [address] Alfa Olivia, RESIDENTIAL APPRAISER [address] [place] [phone] [email or web address] 04/25/2025 12:00 PM EST Infusion Infusion Therapy Services [facility] [address], [address], [address] [place] [address] Jg Morgan MD, PhD [address] [place] [phone] [email or web address]@[email or web address] 07/18/2025 9:10 AM EDT Blood Draw Laboratory Services, [address], [address] [place] [address] Jg Morgan MD, PhD [address] [place] [phone] Dexter@[email or web address] 07/18/2025 10:00 AM EDT Office Visit [facility], Division of Hematologic Oncology, [address], [address] [place] [address] Jg Morgan MD, PhD [address] [place] [phone] Dexter@[email or web address] 10/10/2025 9:10 AM EDT Blood Draw Laboratory Services, [address], [address] [place] [address] Jg Morgan MD, PhD [address] [place] [phone] Dexter@[email or web address] 10/10/2025 10:00 AM EDT Office Visit [facility], Division of Hematologic Oncology, [address], [address] [place] [address] Alfa Olivia, RESIDENTIAL APPRAISER [address] [place] [address] [email or web address] documented as of this encounter Visit Diagnoses Not on filedocumented in this encounter Additional Health Concerns Infection Onset Date Last Indicated Resolved Time 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 Antigen at home test positive 08/15. Had outside molecular testing done. Have requested results be entered into [facility].- She is considered severely immuncompromised based on on BTKi therapy, i.e., acalabrutinib, in the last 6 months. Please contact [facility] to resolve flag. --Shiva Mckeon, [facility] 10/09/21 tested negative for covid, patient is sx free. > 20 days since onset. LD DFCI 08/15/2021 08/15/2021 10/23/2021 9:50 AM E DT COVID-19 07/15/2022 07/15/2022 08/05/2022 1:21 AM EDT COVID-19 02/05/2023 02/05/2023 02/26/2023 1:23 AM EST documented as of this encounter Care Teams Integrated Pest Management Technician Relationship Specialty Start Date End Date David March MD [email or web address] PCP - General Internal Medicine 08/05/17 Sherri Yang MD [address] [place] [address] [email or web address] Referring Physician Hematology and Oncology 08/05/17 Jg Morgan MD, PhD [address] [place] [phone] [email or web address] Primary Oncologist Oncology 08/05/17 Mary Lucas, RN [address] [place] [address] [email or web address] Primary Nurse 08/06/21 documented as of this encounter Additional Source Comments The information contained in this document represents components of the legal health record. It is not the complete legal health record.[facility]
--- OUTSIDE RECORDS SUMMARY | 2025-03-07 20:25 | XMS_ITS | Encounter Summary ---
Author Organization [facility] Address [address] [place] [address] Phone Care Team Providers Care Supervisor Adult Education Name Role Phone David March MD Primary Care Provider [phone] Sherri Yang MD Unavailable [phone] Jg Morgan MD, PhD Unavailable [phone] Mary Lucas RN Unavailable [phone] Encounter Details Date Type Department Care Team (Late st Contact Info) Description 07/03/2022 Procedure Pass [facility] [place] [facility] [place], [place] [address]rd [place] [address] Social History Tobacco Use Types Packs/Day Years [...] PM EST Blood Draw Infusion Therapy Services [facility], [facility] [address], [address]th [place] [address] Jg Morgan MD, PhD [address] [place] [phone] Dexter@[email or web address] Alexandra Suarez RN [address] [place] [phone] [email or web address]@[email or web address] 03/18/2025 2:00 PM EST Infusion Infusion Therapy Services [facility] [address], [address], [address] [place] [address] Jg Morgan MD, PhD [address] [place] [phone] Dexter@[email or web address] Cathy Luciano RN [address] [place] [address] [email or web address] 04/25/2025 10:10 AM EST Blood Draw Laboratory Services, [address], [address]nd [place] [address] Jg Morgan MD, PhD [address] [place] [phone] [email or web address]@[email or web address] 04/25/2025 11:00 AM EST Office Visit [facility], Division of Hematologic Oncology, [address], [address] [place] [address] Alfa Olivia, MANAGER [employer] [address] [place] [address] [email or web address] 04/25/2025 12:00 PM EST Infusion Infusion Therapy Services [facility] [address], [address], [address] [place] [address] Jg Morgan MD, PhD [address] [place] [phone] Dexter@[email or web address] 07/18/2025 9:10 AM EDT Blood Draw Laboratory Services, [address], [address] [place] [address] Jg Morgan MD, PhD [address] [place] [phone] Dexter@[email or web address] 07/18/2025 10:00 AM EDT Office Visit [facility], Division of Hematologic Oncology, [address], [address] [place] [address] gJ Morgan MD, PhD [address] [place] [address] Dexter@[facility] 10/10/2025 9:10 AM EDT Blood Draw Laboratory Services, [address], [address] [place] [address] Jg Morgan MD, PhD [address] [place] [phone] Dexter@[facility] 10/10/2025 10:00 AM EDT Office Visit [facility], Division of Hematologic Oncology, [address], [address] [place] [address] Alfa Olivia, MANAGER [employer] [address] [place] [address] [email or web address] documented as of this encounter Visit Diagnoses Not on filedocumented in this encounter Additional Health Concerns Infection Onset Date Last Indicated Resolved Time COVID-19 07/15/2022 07/15/2022 08/05/2022 1:21 AM EDT COVID-19 02/05/2023 02/05/2023 02/26/2023 1:23 AM EST documented as of this encounter Care Teams Supervisor Adult Education Relationship Specialty Start Date End Date David March MD [email or web address] PCP - General Internal Medicine 08/05/17 Sherri Yang MD [address] [place] [address] [email or web address] Referring Physician Hematology and Oncology 08/05/17 Jg Morgan MD, PhD [address] [place] [phone] [email or web address] Primary Oncologist Oncology 08/05/17 Mary Lucas RN [address] [place] [phone] [email or web address] Primary Nurse 08/06/21 documented as of this encounter Additional Source Comments The information contained in this document represents components of the legal health record. It is not the complete legal health record.[facility]
--- OUTSIDE RECORDS SUMMARY | 2025-03-07 20:25 | XMS_ITS | Encounter Summary ---
Author Organization [facility] Address [address] [place] [address] Phone Care Team Providers Care Bander And Cellophaner Helper Machine Name Role Phone David March MD Primary Care Provider [phone] Sherri Yang MD Unavailable [phone] Jg Morgan MD, PhD Unavailable [phone] Mary Lucas RN Unavailable Reason for Visit * Reason Comments Medication Refill Encounter Details Date Type Department Care Team (Late st Contact Info) Description 05/23/2021 Refill [facility], Division of Hematologic Oncology, [facility] [place] [address] [place] [address], 7th [place] [address] Cecily Perera, NEIL [address] [place] [phone] [email or web address] Medication Refill Social History Tobacco Use Types Packs/Day Years [...] PM EST Blood Draw Infusion Therapy Services [address], [address] [place] [address] Jg Morgan MD, PhD [address] [place] [phone] Dexter@[email or web address] Alexandra Suarez RN [address] [place] [phone] Landry@[email or web address] 03/18/2025 2:00 PM EST Infusion Infusion Therapy Services [address], [address] [place] [address] Jg Morgan MD, PhD [address] [place] [phone] Dexter@[email or web address] Cathy Luciano RN [address] [place] [address] [email or web address] 04/25/2025 10:10 AM EST Blood Draw Laboratory Services, [address], [address] [place] [address] Jg Morgan MD, PhD [address] [place] [phone] Dexter@[facility] 04/25/2025 11:00 AM EST Office Visit [facility], Division of Hematologic Oncology, [address], [address] [place] [address] Alfa Olivia, DEEDEE [address] [place] [address] [email or web address] 04/25/2025 12:00 PM EST Infusion Infusion Therapy Services [facility] [address], [address], [address]th [place] [address] Jg Morgan MD, PhD [address] [place] [phone] Dexter@[facility] 07/18/2025 9:10 AM EDT Blood Draw Laboratory Services, [address], [address] [place] [address] Jg Morgan MD, PhD [address] [place] [phone] Dexter@[facility] 07/18/2025 10:00 AM EDT Office Visit [facility], Division of Hematologic Oncology, [address], [address] [place] [address] Jg Morgan MD, PhD [address] [place] [phone] Dexter@[facility] 10/10/2025 9:10 AM EDT Blood Draw Laboratory Services, [address], [address] [place] [address] Jg Morgan MD, PhD [address] [place] [phone] Dexter@[facility] 10/10/2025 10:00 AM EDT Office Visit [facility], Division of Hematologic Oncology, [address], [address] [place] [address] Alfa Olivia, DEEDEE [address] [place] [address] [email or web address] documented as of this encounter Visit Diagnoses Not on filedocumented in this encounter Additional Health Concerns Infection Onset Date Last Indicated Resolved Time 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 Antigen at home test positive 08/15. Had outside molecular testing done. Have requested results be entered into Epic.- She is considered severely immuncompromised based on on BTKi therapy, i.e., acalabrutinib, in the last [address] [facility] to resolve flag. --Shiva Mckeon, [facility] 10/09/21 tested negative for covid, patient is sx free. > 20 days since onset. LD DFCI 08/15/2021 08/15/2021 10/23/2021 9:50 AM E DT COVID-19 07/15/2022 07/15/2022 08/05/2022 1:21 AM EDT COVID-19 02/05/2023 02/05/2023 02/26/2023 1:23 AM EST documented as of this encounter Care Teams Bander And Cellophaner Helper Machine Relationship Specialty Start Date End Date David March MD [email or web address] PCP - General Internal Medicine 08/05/17 Sherri Yang MD [address] [place] [phone] [email or web address] Referring Physician Hematology and Oncology 08/05/17 Jg Morgan MD, PhD [address] [place] [phone] [email or web address] Primary Oncologist Oncology 08/05/17 Mary Lucas, STEPHANIE [address] [place] [address] [email or web address] Primary Nurse 08/06/21 documented as of this encounter Additional Source Comments The information contained in this document represents components of the legal health record. It is not the complete legal health record.[facility]
--- OUTSIDE RECORDS SUMMARY | 2025-03-07 20:25 | XMS_ITS | Encounter Summary ---
Author Organization [facility] Address [address] [place] [address] Phone Care Team Providers Care Counseling Department Chair Name Role Phone David March MD Primary Care Provider [phone] Sherri Yang MD Unavailable Jg Morgan MD, PhD Unavailable [phone] Mary Lucas RN Unavailable [phone] Reason for Visit * Reason Comments Medication Refill Encounter Details Date Type Department Care Team (Late st Contact Info) Description 09/18/2022 Refill [facility], Division of Hematologic Oncology, [facility] [place] [address] [place] [address], 7th [place] [address] Alfa Olivia, [address] [address] [email or web address] Medication Refill Social History Tobacco Use Types Packs/Day Years Used Date Smoking Tobacco: Never Smokeless Tobacco: Never Education Answer Date Recorded Are you interested in more education? Not on angel e 07/16/2022 Are you concerned about learning? Not on file 07/16/2022 No 07/16/2022 No 07/16/2022 Digital Access Answer Date Recorded No 08/13/2022 No 08/13/2022 No 08/13/2022 Reliable internet access at home? Not on file 08/13/2022 Device with a working camera? Not on file Comments Unknown Sex and Gender Information Value [...] PM EST [facility] [address], [address] [place] [address] Jg Morgan MD, PhD [address] [place] [id number] [email or web address] Alexandra Suarez RN [address] [place] [phone] [email or web address]@[email or web address] 03/18/2025 2:00 PM EST [facility] [address], [address] [place] [address] Jg Morgan MD, PhD [address] [place] [phone] [email or web address]@[email or web address] Cathy Luciano RN [address] [place] [id number] [email or web address] 04/25/2025 10:10 AM EST Blood Draw Laboratory Services, [address], [address] [place] [address] Jg Morgan MD, PhD [address] [place] [phone] [email or web address] 04/25/2025 11:00 AM EST Office Visit [facility] for [facility], Division of Hematologic Oncology, [address], 7th [place] [address] Alfa Olivia, SILO FILLER [address] [place] [address] [email or web address] 04/25/2025 12:00 PM EST In[facility] [place] [address], [address], 9th [place] [address] Jg Morgan MD, PhD [address] [place] [address] [email or web address] 07/18/2025 9:10 AM EDT [facility], [address], [address]nd [place] [address] Jg Morgan MD, PhD [address] [place] [address] [email or web address] 07/18/2025 10:00 AM EDT Office Visit [facility], Division of Hematologic Oncology, [address], [address] [place] [address] Jg Morgan MD, PhD [address] [place] [phone] [email or web address]@[facility] 10/10/2025 9:10 AM EDT [facility], [address], [address] [place] [address] Jg Morgan MD, PhD [address] [place] [id number] [email or web address]@[facility] 10/10/2025 10:00 AM EDT Office Visit [facility] for Lymphoma, Division of Hematologic Oncology, [facility] [place] [address] [facility], 7th [place] [address] Alfa Oilvia, SILO FILLER [address] [place] [address] [email or web address] documented as of this encounter Visit Diagnoses Not on filedocumented in this encounter Additional Health Concerns Infection Onset Date Last Indicated Resolved Time COVID-19 02/05/2023 02/05/2023 02/26/2023 1:23 AM EST documented as of this encounter Care Teams Counseling Department Chair Relationship Specialty Start Date End Date David March MD [email or web address] PCP - General Internal Medicine 08/05/17 Sherri Yang MD [address] [place] [phone] [email or web address] Referring Physician Hematology and Oncology 08/05/17 Jg Morgan MD, PhD [address] [place] [phone] [email or web address] Primary Oncologist Oncology 08/05/17 Mary Lucas, RN [address] [place] [address] [email or web address] Primary Nurse 08/06/21 documented as of this encounter Additional Source Comments The information contained in this document represents components of the legal health record. It is not the complete legal health record.[facility]
--- OUTSIDE RECORDS SUMMARY | 2025-03-07 20:25 | XMS_ITS | Encounter Summary ---
Author Organization [facility] Address [address] [place] [address] Phone Care Team Providers Care Locomotive Engineer Name Role Phone David March MD Primary Care Provider [phone] Sherri Yang MD Unavailable [phone] Jg Morgan MD, PhD Unavailable [phone] Mary Lucas RN Unavailable [phone] Encounter Details Date Type Department Care Team (Late st Contact Info) Description 10/22/2021 Procedure Pass Meryl Lank Imaging Department, [facility] [place], [address], Floor [address] [place] [id number] Social History Tobacco Use Types Packs/Day Years [...] PM EST Blood Draw Infusion Therapy Services [place] [address], [facility] [address], 7th [place] [address] Jg Morgan MD, PhD [address] [place] [phone] [email or web address] Alexandra Suarez RN [address] [place] [phone] [email or web address]@[email or web address] 03/18/2025 2:00 PM EST Infusion Infusion Therapy [facility] [place] [address], [address], [address] [place] [address] Jg Morgan MD, PhD [address] [place] [phone] [email or web address] Cathy Luciano RN [address] [place] [address] [email or web address] 04/25/2025 10:10 AM EST Blood Draw [facility], [address], [address] [place] [address] Jg Morgan MD, PhD [address] [place] [phone] [email or web address] 04/25/2025 11:00 AM EST Office Visit Center for Lymphoma, Division of Hematologic Oncology, [address], [address] [place] [address] Alfa Olivia, BE[employer] BAB[employer]ITTER [address] [place] [address] [email or web address] 04/25/2025 12:00 PM EST Infusion Infusion Therapy [facility] [place] [address], [address], [address] [place] [address] Jg Morgan MD, PhD [address] [place] [phone] [email or web address]@[facility] 07/18/2025 9:10 AM EDT Blood Draw Laboratory Services, [address], [address] [place] [address] Jg Morgan MD, PhD [address] [place] [phone] [email or web address]@[facility] 07/18/2025 10:00 AM EDT Office Visit [facility] for Lymphoma, Division of Hematologic Oncology, [address], [address] [place] [address] Jg Morgan MD, PhD [address] [place] [id number] [email or web address]@[facility] 10/10/2025 9:10 AM EDT Blood Draw Laboratory Services, [address], [address] [place] [address] Jg Morgan MD, PhD [address] [place] [phone] [email or web address]@[facility] 10/10/2025 10:00 AM EDT Office Visit [facility] for Lymphoma, Division of Hematologic Oncology, [address], [address] [place] [address] Alfa Olivia, [employer]AB[employer]TER [address] [place] [address] [email or web address] documented as of this encounter Visit Diagnoses Not on filedocumented in this encounter Additional Health Concerns Infection Onset Date Last Indicated Resolved Time 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 Antigen at home test positive 08/15. Had outside molecular testing done. 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 Please contact [facility] to resolve flag. --Shiva Mckeon, [facility] 10/09/21 tested negative for covid, patient is sx free. > 20 days since onset. LD DFCI 08/15/2021 08/15/2021 10/23/2021 9:50 AM E DT COVID-19 07/15/2022 07/15/2022 08/05/2022 1:21 AM EDT COVID-19 02/05/2023 02/05/2023 02/26/2023 1:23 AM EST documented as of this encounter Care Teams Locomotive Engineer Relationship Specialty Start Date End Date David March MD [email or web address] PCP - General Internal Medicine 08/05/17 Sherri Yang MD [address] [place] [phone] [email or web address] Referring Physician Hematology and Oncology 08/05/17 Jg Morgan MD, PhD [address] [place] [phone] [email or web address] Primary Oncologist Oncology 08/05/17 Mary Lucas, RN [address] [place] [phone] [email or web address] Primary Nurse 08/06/21 documented as of this encounter Additional Source Comments The information contained in this document represents components of the legal health record. It is not the complete legal health record.[facility]
--- OUTSIDE RECORDS SUMMARY | 2025-03-07 20:25 | XMS_ITS | Encounter Summary ---
Author Organization [facility] Address [address] [place] [address] Phone Care Team Providers Care Real Estate Professional Name Role Phone David March MD Primary Care Provider [phone] Sherri Yang MD Unavailable [phone] Jg Morgan MD, PhD Unavailable [phone] Mary Lucas RN Unavailable [phone] Encounter Details Date Type Department Care Team (Late st Contact Info) Description 10/17/2020 Procedure Pass Meryl Lank Imaging Department, [facility] [place], [address], Floor [address] [place] [phone] Social History Tobacco Use Types Packs/Day Years [...] PM EST Blood Draw Infusion Therapy Services [place] [address], [facility] [address], [address]th [place] [address] Jg Morgan MD, PhD [address] [place] [phone] Dexter@[email or web address] Alexandra Suarez RN [address] [place] [phone] Landry@[email or web address] 03/18/2025 2:00 PM EST Infusion Infusion Therapy Services [place] [address], [address], [address] [place] [address] Jg Morgan MD, PhD [address] [place] [phone] Dexter@[email or web address] Cathy Luciano RN [address] [place] [address] [email or web address] 04/25/2025 10:10 AM EST Blood Draw Laboratory Services, [address], [address]nd [place] [address] Jg Morgan MD, PhD [address] [place] [phone] [email or web address]@[email or web address] 04/25/2025 11:00 AM EST Office Visit Center for Lymphoma, Division of Hematologic Oncology, [address], [address] [place] [address] Alfa Olivia, MAGAZINE WRITER [address] [place] [phone] [email or web address] 04/25/2025 12:00 PM EST Infusion Infusion Therapy Services [place] [address], [address], [address] [place] [address] Jg Mrogan MD, PhD [address] [place] [phone] [email or web address]@[email or web address] 07/18/2025 9:10 AM EDT Blood Draw Laboratory Services, [address], [address] [place] [address] Jg Morgan MD, PhD [address] [place] [phone] Dexter@[facility] 07/18/2025 10:00 AM EDT Office Visit Center for Lymphoma, Division of Hematologic Oncology, [address], [address] [place] [address] Jg Morgan MD, PhD [address] [place] [phone] Dexter@[email or web address] 10/10/2025 9:10 AM EDT Blood Draw Laboratory Services, [address], [address] [place] [address] Jg Morgan MD, PhD [address] [place] [phone] Dexter@[facility] 10/10/2025 10:00 AM EDT Office Visit [facility] for Lymphoma, Division of Hematologic Oncology, [address], [address] [place] [address] Alfa Olivia, MAGAZINE WRITER [address] [place] [phone] [email or web address] documented as of this encounter Visit Diagnoses Not on filedocumented in this encounter Additional Health Concerns Infection Onset Date Last Indicated Resolved Time 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 Antigen at home test positive 08/15. Had outside molecular testing done. 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 Please contact [facility] to resolve flag. --Shiva Mckeon, [facility] 10/09/21 tested negative for covid, patient is sx free. > 20 days since onset. LD DFCI 08/15/2021 08/15/2021 10/23/2021 9:50 AM E DT COVID-19 07/15/2022 07/15/2022 08/05/2022 1:21 AM EDT COVID-19 02/05/2023 02/05/2023 02/26/2023 1:23 AM EST documented as of this encounter Care Teams Real Estate Professional Relationship Specialty Start Date End Date David March MD [email or web address] PCP - General Internal Medicine 08/05/17 Sherri Yang MD [address] [place] [phone] [email or web address] Referring Physician Hematology and Oncology 08/05/17 Jg Morgan MD, PhD [address] [place] [phone] [email or web address] Primary Oncologist Oncology 08/05/17 Mary Lucas, RN [address] [place] [address] [email or web address] Primary Nurse 08/06/21 documented as of this encounter Additional Source Comments The information contained in this document represents components of the legal health record. It is not the complete legal health record.[facility]
--- OUTSIDE RECORDS SUMMARY | 2025-03-07 20:25 | XMS_ITS | Clinical Summary ---
Author Organization [facility] Address [address] [place] [address] Phone Care Team Providers Care Informatics Developer Name Role Phone David March MD Primary Care Provider [phone] Sherri Yang MD Unavailable [phone] Jg Morgan MD, PhD Unavailable [phone] Mary Lucas RN Unavailable [phone] Allergies Active Allergy Reactions Criticality Noted Date Comments Sulfamethoxazole-Trimethoprim Rash High 2021 Codeine Rash Low 08/18/2017 Cephalexin Rash Low 07/31/2021 possible Medications cholecalciferol (VITAMIN D3) 2,000 unit tablet Take 1 tablet (2,000 Units total) by mouth daily. 01/29/2020 Active b complex vitamins capsule Take 1 capsule by mouth daily. Active Active Problems Problem Noted Date Diagnosed Date CLL (chronic lymphocytic leukemia) 08/18/2017 Encounters Date Type Department Care Team Description 01/31/2025 12:30 PM EST Infusion Infusion Therapy Services [place] , [facility] [place] [address], [address]th [place] [address] Jg Morgan MD, PhD Lucero Briceño RN CLL (chronic lymphocytic leukemia) (Primary Dx) 01/31/2025 11:30 AM EST Office Visit Center for Lymphoma, Division of Hematologic Oncology, [facility] [place] [address], 7th [place] [address] Jg Morgan MD, PhD CLL (chronic lymphocytic leukemia) (Primary Dx) 01/31/2025 Lab Requisition [facility] [address], 2nd [place] [address] Jg Morgan MD, PhD 01/31/2025 Lab Requisition [facility] LAB MAIN [address], 2nd [place] [address] Jg Morgan MD, PhD 01/30/2025 Orders Only Laboratory Services, [address], 2nd [place] [address] Sandeep Santos MA CLL (chronic lymphocytic leukemia) (Primary Dx) 01/25/2025 Orders Only [facility], [address], 6[address] [place] [address] Regino Barajas CLL (chronic lymphocytic leukemia) (Primary Dx) 12/20/2024 9:00 AM EDT Infusion Infusion Therapy Services [place], [address], [address] [place] [address] Jg Morgan MD, PhD Mary Lucas RN CLL (chronic lymphocytic leukemia) (Primary Dx) from Last 3 Months Immunizations Immunization Administration Dates Next Due Pneumococcal conjugate PCV13 11/07/2018 Pneumococcal conjugate PCV21 11/08/2024 Pneumococcal polysaccharide PPSV23 05/01/2019 RSV Vaccine (monovalent, adjuvanted) 01/31/2025 Social History Tobacco Use Types Packs/Day Years [...] Orientation Straight 04/01/2020 8: 41 PM EST Last Filed Vital Signs Vital Sign Reading Time Taken Comments Blood Pressure 111/64 01/31/2025 2:19 PM EST Pulse 57 01/31/2025 2:19 PM EST Temperature 36.2 C (97.1 F) 01/31/2025 11:23 AM EST Respiratory Rate 16 01/31/2025 11:2 3 AM EST Oxygen Saturation 100% 01/31/2025 11: 23 AM EST Inhaled Oxygen Concentration - - Weight 55.3 kg (121 lb 14.6 oz) 025 11:23 AM EST Height 159.6 cm (5' 2.84 ) 01/31/2025 1 1:23 AM EST Body Mass Index 21.71 01/31/2025 11:23 AM EST Plan of Treatment Upcoming Encounters Date Type Department Care Team (Late st Contact Info) Description 03/18/2025 1:00 PM EST Blood Draw Infusion Therapy Services [address], [address] [place] [address] Jg Morgan MD, PhD [address] [place] [phone] [email or web address] Alexandra Suarez RN [address] [place] [phone] [email or web address] 03/18/2025 2:00 PM EST Infusion Infusion Therapy Services [address], [address] [place] [address] Jg Morgan MD, PhD [address] [place] [phone] [email or web address] Cathy Luciano RN [address] [place] [phone] [email or web address] 04/25/2025 10:10 AM EST Blood Draw Laboratory Services, [address], [address]nd [place] [address] Jg Morgan MD, PhD [address] [place] [phone] [email or web address] 04/25/2025 11:00 AM EST Office Visit Center for Lymphoma, Division of Hematologic Oncology, [address], [address] [place] [address] Alfa Olivia, [address] [address] [email or web address] 04/25/2025 12:00 PM EST Infusion Infusion Therapy Services [place], [address], [address] [place] [address] Jg Morgan MD, PhD [address] [place] [phone] [email or web address] 07/18/2025 9:10 AM EDT Blood Draw Laboratory Services, [address], [address] [place] [address] Jg Morgan MD, PhD [address] [place] [phone] [email or web address] 07/18/2025 10:00 AM EDT Office Visit [facility], Division of Hematologic Oncology, [address], [address] [place] [address] Jg Morgan MD, PhD [address] [place] [phone] [email or web address] 10/10/2025 9:10 AM EDT Blood Draw Laboratory Services, [address], 2nd [place] [address] Jg Morgan MD, PhD [address] [place] [address] [email or web address] 10/10/2025 10:00 AM EDT Office Visit [facility] Lymphoma, Division of Hematologic Oncology, [address], 7[address] [place] [address] Alfa Olivia, DYNAMICS AX SOLUTION ARCHITECT [address] [place] [address] [email or web address] Health Maintenance Due Date Last Done Comments LIPID PANEL 1966 DEPRESSION SCREENING 1978 PAP SMEAR 1987 MAMMOGRAM 2006 COLOGUARD 2011 COLONOSCOPY 2011 COLORECTAL CANCER SCREENING 2011 FIT TEST 2011 FOBT 2011 SIGMOIDOSCOPY 2011 VIRTUAL COLONOSCOPY 2011 ZOSTER VACCINES (2 of 2) 02/09/2018 12/15/2017 COVID-19 VACCINE ( season) 2024 11/30/2020, 09/20/2020, 08/30/2020 Adult Td,Tdap Booster 01/20/2027 01/20/2017 HIV ONE-TIME SCREENING (18-65 YEARS) Completed 01/30/2019 HEPATITIS C SCREENING Completed 04/04/2020 , 04/04/2020, 04/04/2020, Additional history exists SMOKING STATUS SCREENING (Once After 26 Yrs) Completed 02/14/2021 PNEUMOCOCCAL VACCINES (50+ years) Completed 11/08/2024, 05/01/2019, 05/01/2019, Additional history exists INFLUENZA VACCINE Completed 12/22/2024, , 02/17/2023, Additional history exists RSV VACCINE Completed 01/31/2025 HEPATITIS A VACCINES Aged Out No long er eligible based on patient's age to complete this topic HIB VACCINES Aged Out No longer eligi ble based on patient's age to complete this topic MENINGOCOCCAL VACCINES (ACWY) Aged Out No longer eligible based on patient's age to complete this topic MENINGOCOCCAL VACCINES (B) Aged Out N o longer eligible based on patient's age to complete this topic Medical Devices Not on file Procedures Procedure Name Priority Date/Time Associated Diagnosis Comments IMMUNOGLOBULINS IGG, IGA, IGM Routine 01/31/2025 10:31 AM EST CLL (chronic lymphocytic leukemia) TOTAL PROTEIN Routine 01/31/2025 10:31 AM EST CLL (chronic lymphocytic leukemia) IMMUNOFIXATION Routine 01/31/2025 10:31 AM EST CLL (chronic lymphocytic leukemia) RED BLOOD CELL (RBC) MORPHOLOGY Routine 01/31/2025 10:31 AM EST CLL (chronic lymphocytic leukemia) CBC AND DIFFERENTIAL, MANUAL Routine 01/31/2025 10:31 AM EST CLL (chronic lymphocytic leukemia) RESEARCH SPECIMEN COLLECTION (DFCI) Routine 01/31/2025 10:31 AM EST CLL (chronic lymphocytic leukemia) SPEP PANEL WITH IMMUNOFIXATION Routine 01/31/2025 10:31 AM EST CLL (chronic lymphocytic leukemia) LDH Routine 01/31/2025 10:31 AM EST CLL (chronic lymphocytic leukemia) URIC ACID Routine 01/31/2025 10:31 AM EST CLL (chronic lymphocytic leukemia) PHOSPHORUS Routine 01/31/2025 10:31 AM EST CLL (chronic lymphocytic leukemia) COMPREHENSIVE METABOLIC PANEL (CMP) Routine 01/31/2025 10:31 AM EST CLL (chronic lymphocytic leukemia) CBC AND DIFFERENTIAL, MANUAL Routine 01/31/2025 10:31 AM EST CLL (chronic lymphocytic leukemia) CHRONIC LYMPHOCYTIC LEUKEMIA (CLL) MONITORING RESIDUAL DISEASE DETECTION, FLOW CYTOMETRY Routine 01/31/2025 10:31 AM EST CLL (chronic lymphocytic leukemia) Cytomegalovirus (CMV) PCR, blood Routine 01/31/2025 10:31 AM EST CLL (chronic lymphocytic leukemia) HEPATITIS C ANTIBODY WITH REFLEX TO HCV, RNA QUANTITATIVE REAL-TIME PCR Routine 04/04/2020 10:51 AM EST CLL (chronic lymphocytic leukemia) from Last 3 Months or Most Recently Relevant to Health Maintenance Results * Serum Protein Electrophoresis (SPEP) Panel, with Immunofixation (01/31/2025 10:31 AM EST) Serum Protein Electrophoresis Interpretation Protein electrophores is: M-spike not detected. Moderate hypogammaglob ulinemia. Immunofixatio n: No monoclonal bands detected. 02/06/2025 11:41 PM EST [facility] Comment: . Blood (Blood) Venipuncture / Unknown 01/31/2025 10:31 AM EST 01/31/2025 10:39 AM EST us Jg Morgan MD, PhD LAB BLOOD BKR ORDERABLES Final Result Performing Organization Address City/State/[facility] Co de Phone Number [facility] [address] [place] [phone] * Immunofixation (01/31/2025 10:31 AM EST) Pathologist [facility] Immunofixation See Interpretation 02/02/2025 1:39 PM EST [facility] Blood (Blood) Venipuncture / Unknown 01/31/2025 10:31 AM EST 01/31/2025 10:39 AM EST us Jg Morgan MD, PhD LAB BLOOD BKR ORDERABLES Final Result [facility] [address] [place] [address] * Lactate Dehydrogenase (LDH) (01/31/2025 10:31 AM EST) LDH 185 135 - 214 U/L 01/31/2025 11:17 AM EST [facility] Blood (Blood) Venipuncture / Unknown 01/31/2025 10:31 AM EST 01/31/2025 10:38 AM EST us Jg Morgan MD, PhD LAB BLOOD BKR ORDERABLES Final Result Performing Organization Address [facility] Co de Phone Number [facility] [address] [place] [address] * (ABNORMAL) Immunoglobulins IgG, IgA, IgM (01/31/2025 10:31 AM EST) Pathologist [facility] Immunoglobulin G 453(L) 700 - 1,600 mg/dL 01/31/2025 3:01 PM EST [facility] Immunoglobulin A <5(L) 70 - 400 mg/dL 01/31/2025 3:01 PM EST [facility] Immunoglobulin M <15(L) 40 - 230 mg/dL 01/31/2025 3:01 PM EST [facility] Blood (Blood) Venipuncture / Unknown 01/31/2025 10:31 AM EST 01/31/2025 10:39 AM EST us Jg Morgan MD, PhD LAB BLOOD BKR ORDERABLES Final Result Performing Organization Address City/[facility]/ZIP Co de Phone Number [facility] [address] [place] [phone] * Comprehensive Metabolic Panel (CMP) (01/31/2025 10:31 AM EST) Pathologist [facility] Sodium 141 136 - 145 mmol/L 01/31/2025 11:17 AM EST [facility] Potassium 4.1 3.4 - 5.1 mmol/L 01/31/2025 11:17 AM [facility] Chloride 104 98 - 107 mmol/L 01/31/2025 11:17 AM [facility] CO2 27 20 - 31 mmol/L 01/31/2025 11:17 AM [facility] Anion Gap 10 3 - 17 mmol/L 01/31/2025 11:17 AM [facility] BUN 10 6 - 23 mg/dL 01/31/2025 11:17 AM [facility] Creatinine 0.77 0.50 - 1.00 mg/dL 01/31/2025 11:17 AM [facility] eGFR 89 >59 mL/min/1.7 3m2 01/31/2025 11:17 AM [facility] Comment:Estimated glomerular filtration rate calculated using the CKD-EPI refit equation. Glucose 94 70 - 99 mg/dL 01/31/2025 11:17 AM [facility] Calcium 9.5 8.5 - 10.5 mg/dL 01/31/2025 11:17 AM [facility] AST 20 <33 U/L 01/31/2025 11:17 AM [facility] ALT 17 <34 U/L 01/31/2025 11:17 AM [facility] Alkaline Phosphatase 79 40 - 130 U/L 01/31/2025 11:17 AM [facility] Bilirubin, Total 0.5 0.0 - 1.2 mg/dL 01/31/2025 11:17 AM [facility] Total Protein 6.5 6.4 - 8.3 g/dL 01/31/2025 11:17 AM [facility] Albumin 4.6 3.5 - 5.2 g/dL 01/31/2025 11:17 AM [facility] Globulin 1.9 1.9 - 4.1 g/dL 01/31/2025 11:17 AM [facility] Blood (Blood) Venipuncture / Unknown 01/31/2025 10:31 AM EST 01/31/2025 10:38 AM EST us Jg Morgan MD, PhD LAB BLOOD BKR ORDERABLES Final Result [facility] [address] [place] [address] * CBC and Differential, Manual (01/31/2025 10:31 AM EST) WBC 4.02 4.00 - 11.00 K/uL 01/31/2025 11:30 AM EST [facility] RBC 4.82 4.00 - 5.20 M/uL 01/31/2025 11:30 AM EST [facility] Hemoglobin 13.2 12.0 - 16.0 g/dL 01/31/2025 11:30 AM EST [facility] Hematocrit 40.1 36.0 - 46.0 % 01/31/2025 11:30 AM EST [facility] MCV 83.2 80.0 - 100.0 fL 01/31/2025 11:30 AM EST [facility] MCH 27.4 27.0 - 31.0 pg 01/31/2025 11:30 AM EST [facility] MCHC 32.9 32.0 - 36.0 g/dL 01/31/2025 11:30 AM EST [facility] MPV 10.9 8.4 - 12.0 fL 01/31/2025 11:30 AM EST [facility] RDW-CV 13.1 11.5 - 14.5 % 01/31/2025 11:30 AM EST [facility] PLT 202 150 - 450 K/uL 01/31/2025 11:30 AM EST [facility] Neutrophils 57.5 % 01/31/2025 11:30 AM EST [facility] Lymphocytes 31.7 % 01/31/2025 11:30 AM EST [facility] Monocytes 7.5 % 01/31/2025 11:30 AM EST [facility] Eosinophils 3.3 % 01/31/2025 11:30 AM EST [facility] Basophils 0.0 % 01/31/2025 11:30 AM EST [facility] Blasts 0.0 % 01/31/2025 11:30 AM EST [facility] NRBC 0.0 <=0.0 /100 WBCs 01/31/2025 11:30 AM EST [facility] Absolute Neutrophils 2.31 1.92 - 7.60 K/uL 01/31/2025 11:30 AM EST [facility] Absolute Lymphocytes 1.27 0.72 - 4.10 K/uL 01/31/2025 11:30 AM EST [facility] Absolute Monocytes 0.30 0.16 - 1.10 K/uL 01/31/2025 11:30 AM EST [facility] Absolute Eosinophils 0.13 0.00 - 0.50 K/uL 01/31/2025 11:30 AM EST [facility] Absolute Basophils 0.00 0.00 - 0.15 K/uL 01/31/2025 11:30 AM EST [facility] Absolute Blasts 0.00 <=0.00 K/uL 01/31/2025 11:30 AM EST [facility] Absolute NRBC 0.00 <=0.00 K cells/uL 01/31/2025 11:30 AM EST [facility] Diff Type Manual 01/31/2025 11:30 AM EST [facility] Blood (Blood) Venipuncture / Unknown 01/31/2025 10:31 AM EST 01/31/2025 10:38 AM EST us Jg Morgan MD, PhD LAB BLOOD BKR ORDERABLES Final Result [facility] [address] [place] [address] * Research Specimen Collection (X-Label) (01/31/2025 10:31 AM EST) [facility] Research Result Research collection was completed. 01/31/2025 10:46 AM EST [facility] Blood (Blood) Venipuncture / Unknown 01/31/2025 10:31 AM EST 01/31/2025 10:36 AM EST us Jg Morgan MD, PhD LAB BLOOD BKR ORDERABLES Final Result [facility] [address] [place] [address] * Chronic Lymphocytic Leukemia (CLL) Monitoring Residual Disease Detection, Flow Cytometry (01/31/2025 10:31 AM EST) [facility] CLLMD Result Performed 02/02/2025 2:21 PM EST [facility] Final Diagnosis SEE COMMENTS 2:21 PM EST [facility] Comment: Peripheral blood, flow cytometric immunophenotyping: Normal immunophenotyping results. No monotypic B-cell population identified. A prior positive peripheral blood flow cytometry study is noted ([id number]; 10/23/2021). Comment: Minimal residual disease (MRD) analysis is intended to detect small residual populations of chronic lymphocytic leukemia (CLL) cells following treatment. This CLL MRD assay is validated to a sensitivity level of 0.002%. Previous therapy targeting cell surface antigen(s) can interfere with this assay's performance. Correlation with clinical features and other laboratory findings is necessary. Contact the signing pathologist at if there are questions about this analysis. Reviewed by: Tiny Mccauley M.D. A portion of the testing process was performed at [facility] site [id number]. Special Studies SEE COMMENTS 025 2:21 PM EST [facility] Comment: WBC: 3.9 x 10(9)/L %Lymphs (CBC/automated differential): 28% #Lymphs (CBC/automated differential): 1.1 x 10(9)/L Results: B-cells: No monotypic, MRD negative; normal pattern of expression of CD19, CD20, CD5, CD22, CD38, CD43, CD45, CD200, and kappa and lambda immunoglobulin light chains.. Quality Assessment: Specimen received within validated guidelines. Microscopic Description SEE COMMENTS 02/02/2025 2:21 PM EST [facility] Comment: RESULT: A slide review was not performed. ADDITIONAL INFORMATION This test was developed and its performance characteristics determined by [facility] in a manner consistent with CLIA requirements. This test has not been cleared or approved by the U.S. Food and Drug Administration. 01/31/2025 10:3 1 AM EST 01/31/2025 10:38 AM EST us Jg Morgan MD, PhD LAB GENERAL ORDERABLES F inal Result DIAZ (BEAKER) [address] [id number] [phone] * Red Blood Cell (RBC) Morphology (01/31/2025 10:31 AM EST) Pathologist [facility] RBC Morphology Reviewed 01/31/2025 11:29 AM EST [facility] Blood (Blood) Venipuncture / Unknown 01/31/2025 10:31 AM EST 01/31/2025 10:38 AM EST us Jg Morgan MD, PhD LAB BLOOD BKR ORDERABLES Final Result [facility] [address] [place] [address] * Cytomegalovirus (CMV) Viral Load, PCR, Blood (01/31/2025 10:31 AM EST) CMV Viral Load, Qual Not Detected Not Detected 02/01/2025 11:20 AM EST [facility] Blood (Blood) Venipuncture / Unknown 01/31/2025 10:31 AM EST 01/31/2025 10:39 AM EST Narrative [facility] - 02/01/2025 11:20 AM EST Assay Range: 35 - 10,000,000 IU/mL (1.54 log - 7.00 log IU/mL) Results of this test may be clinically useful in monitoring the clinical course or response to antiviral therapy in CMV infected patients but should not solely be used to make the diagnosis of CMV infection. A result of Not Detected does not exclude the possibility of CMV. us Jg Morgan MD, PhD LAB BLOOD BKR ORDERABLES Final Result Performing Organization Address [facility]/ZIP Co de Phone Number [facility] [address] [place] [phone] * Uric Acid (01/31/2025 10:31 AM EST) [facility] Uric Acid 3.4 2.4 - 5.7 mg/dL 01/31/2025 11:17 AM EST [facility] Blood (Blood) Venipuncture / Unknown 01/31/2025 10:31 AM EST 01/31/2025 10:38 AM EST us Jg Morgan MD, PhD LAB BLOOD BKR ORDERABLES Final Result Performing Organization Address [facility] Co de Phone Number [facility] [address] [place] [phone] * (ABNORMAL) Protein, Total (01/31/2025 10:31 AM EST) [facility] Total Protein 6.3(L) 6.4 - 8.3 g/dL 01/31/2025 1:30 PM EST [facility] Blood (Blood) Venipuncture / Unknown 01/31/2025 10:31 AM EST 01/31/2025 10:39 AM EST us Jg Morgan MD, PhD LAB BLOOD BKR ORDERABLES Final Result Performing Organization Address City/[facility] Co de Phone Number [facility] [address] [place] [phone] * Phosphorus (01/31/2025 10:31 AM EST) Phosphorus 3.3 2.5 - 4.5 mg/dL 01/31/2025 11:17 AM EST [facility] Blood (Blood) Venipuncture / Unknown 01/31/2025 10:31 AM EST 01/31/2025 10:38 AM EST Jg Morgan MD, PhD LAB BLOOD BKR ORDERABLES Final Result [facility] [address] [place] [address] * Hepatitis C Antibody with Reflex to HCV, RNA quantitative Real-Time PCR (04/04/2020 10:51 AM EST) Pathologist [facility] HCV Ab Negative Negative [facility] Comment: (NOTE) Cfrrdy-ai-beszfq ratio is <1.00. Blood 04/04/2020 10:5 1 AM EST 04/04/2020 11:32 AM EST us Jg Morgan MD, PhD LAB BLOOD BKR ORDERABLES Final Result Performing Organization Address [facility] Co de Phone Number [facility] [address] [place] [address] from Last 3 Months or Most Recently Relevant to Health Maintenance Insurance [facility] STATE PPO BLUE [place]OSS OUT OF STATE PPO BLUE [place]OSS OUT OF STATE PPO BLUE [place]OSS OUT OF STATE PPO OUT [facility] PPO [facility] OUT OF STATE PPO BLUE [place]OSS OUT OF STATE PPO BLUE [place] OUT OF STATE PPO BLUE [place]OSS OUT OF STATE PPO Care Teams Informatics Developer Relationship Specialty Start Date End Date David March MD [email or web address] PCP - General Internal Medicine 08/05/17 Sherri Yang MD [address] [place] [phone] [email or web address] Physician Hematology and Oncology 08/05/17 Jg Morgan MD, PhD [address] [place] [phone] [email or web address] Primary Oncologist Oncology 08/05/17 Mary Lucas, RN [address] [place] [phone] [email or web address] Primary Nurse 08/06/21 Additional Source Comments The information contained in this document represents components of the legal health record. It is not the complete legal health record[facility]
--- OUTSIDE RECORDS SUMMARY | 2025-03-07 20:25 | XMS_ITS | Encounter Summary ---
Author Organization [facility] Address [address] [place] [address] Phone Care Team Providers Care Artificial Stone Applicator Name Role Phone David March MD Primary Care Provider [phone]- [phone] Sherri Yang MD Unavailable [phone] Jg Morgan MD, PhD Unavailable [phone] Mary Lucas RN Unavailable [phone] Encounter Details Date Type Department Care Team (Late st Contact Info) Description 03/05/2020 Procedure Pass Meryl Lank Imaging Department, [facility] [place], [address], Floor L1 [place] [phone] Social History Tobacco Use Types Packs/Day Years [...] PM EST Blood Draw Infusion Therapy Services [place] [address], [address], 7th [place] [address] Jg Morgan MD, PhD [address] [place] [address] Dexter@[email or web address] Alexandra Suarez RN [address] [place] [address] [email or web address] BEDS AT THE [facility] 03/18/2025 2:00 PM EST Infusion Infusion Therapy Services [place] [address], [address], [address]th [place] [address] Jg Morgan MD, PhD [address] [place] [phone] [email or web address]@[email or web address] Cathy Luciano RN [address] [place] [address] [email or web address] 04/25/2025 10:10 AM EST Blood Draw Laboratory Services, [address], 2nd [place] [address] Jg Morgan MD, PhD [address] [place] [phone] Dexter@[facility] 04/25/2025 11:00 AM EST Office Visit [facility], Division of Hematologic Oncology, [address], [address] [place] [address] Alfa Olivia, HAND BINDER STRIPPER [address] [place] [address] [email or web address] 04/25/2025 12:00 PM EST Infusion Infusion Therapy Services [place] [address], [address], [address]th [place] [address] Jg Morgan MD, PhD [address] [place] [address] Dexter@[facility] 07/18/2025 9:10 AM EDT Blood Draw Laboratory Services, [address], [address] [place] [address] Jg Morgan MD, PhD [address] [place] [phone] Dexter@[facility] 07/18/2025 10:00 AM EDT Office Visit [facility], Division of Hematologic Oncology, [address], [address] [place] [address] Jg Morgan MD, PhD [address] [place] [address] Dexter@[facility] 10/10/2025 9:10 AM EDT Blood Draw Laboratory Services, [address], [address] [place] [address] Jg Morgan MD, PhD [address] [place] [address] Dexter@[facility] 10/10/2025 10:00 AM EDT Office Visit [facility], Division of Hematologic Oncology, [address], [address] [place] [address] Alfa Olivia Barbara, HAND BINDER STRIPPER [address] [place] [address] 244[address] [email or web address] documented as of this encounter Visit Diagnoses Not on filedocumented in this encounter Additional Health Concerns Infection Onset Date Last Indicated Resolved Time 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 Antigen at home test positive 08/15. Had outside molecular testing done. 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 Please contact [facility] to resolve flag. --Shiva Mckeon, [facility] 10/09/21 tested negative for covid, patient is sx free. > 20 days since onset. LD DFCI 08/15/2021 08/15/2021 10/23/2021 9:50 AM E DT COVID-07/15/2022 07/15/2022 08/05/2022 1:21 AM EDT COVID-19 02/05/2023 02/05/2023 02/26/2023 1:23 AM EST documented as of this encounter Care Teams Artificial Stone Applicator Relationship Specialty Start Date End Date David March MD [email or web address] PCP - General Internal Medicine 08/05/17 Sherri Yang MD [address] [place] [address] [email or web address] Referring Physician Hematology and Oncology 08/05/17 Jg Morgan MD, PhD [address] [place] [address] [email or web address] Primary Oncologist Oncology 08/05/17 Mary Lucas, RN [address] [place] [address] [email or web address] Primary Nurse 08/06/21 documented as of this encounter Additional Source Comments The information contained in this document represents components of the legal health record. It is not the complete legal health record.[facility]
--- OUTSIDE RECORDS SUMMARY | 2025-03-07 20:25 | XMS_ITS | Encounter Summary ---
Author Organization [facility] Address [address] [place] [address] Phone Care Team Providers Care Regulatory Manager Name Role Phone David March MD Primary Care Provider [phone] Sherri Yang MD Unavailable [phone] Jg Morgan MD, PhD Unavailable [phone] Mary Lucas RN Unavailable [phone] Encounter Details Date Type Department Care Team (Late st Contact Info) Description 10/22/2021 Procedure Pass Meryl Lank Imaging Department, [facility] [place], [address], Floor L1 [place] [phone] Social History Tobacco Use Types Packs/Day Years [...] PM EST Blood Draw Infusion Therapy Services [place] [address], [facility] [address], [address]th [place] [address] Jg Morgan MD, PhD [address] [place] [phone] Dexter@[facility] Alexandra Suarez RN [address] [place] [phone] Landry@[facility] 03/18/2025 2:00 PM EST Infusion Infusion Therapy Services [place] [address], [address], 7th [place] [address] Jg Morgan MD, PhD [address] [place] [phone] Dexter@[facility] Cathy Luciano RN [address] [place] [address] [email or web address] 04/25/2025 10:10 AM EST Blood Draw Laboratory Services, [address], 2nd [place] [address] Jg Morgan MD, PhD [address] [place] [phone] Dexter@[facility] 04/25/2025 11:00 AM EST Office Visit [facility], Division of Hematologic Oncology, [address], [address]th [place] [address] Afla Olivia, PUBLIC SERVICE REPRESENTATIVE [address] [place] [address] [email or web address] 04/25/2025 12:00 PM EST Infusion Infusion Therapy Services [place] [address], [address], [address]th [place] [address] Jg Morgan MD, PhD [address] [place] [address] Dexter@[facility] 07/18/2025 9:10 AM EDT Blood Draw Laboratory Services, [address], [address]nd [place] [address] Jg Morgan MD, PhD [address] [place] [phone] Dexter@[facility] 07/18/2025 10:00 AM EDT Office Visit [facility], Division of Hematologic Oncology, [address], [address] [place] [address] Jg Morgan MD, PhD [address] [place] [address] Dexter@[facility] 10/10/2025 9:10 AM EDT Blood Draw Laboratory Services, [address], [address] [place] [address] Jg Morgan MD, PhD [address] [place] [address] Dexter@[facility] 10/10/2025 10:00 AM EDT Office Visit [facility], Division of Hematologic Oncology, [address], [address] [place] [address] Alfa Olivia, PUBLIC SERVICE REPRESENTATIVE [address] [place] [address] [email or web address] documented as of this encounter Visit Diagnoses Not on filedocumented in this encounter Additional Health Concerns Infection Onset Date Last Indicated Resolved Time 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 Antigen at home test positive 08/15. Had outside molecular testing done. Have requested results be entered into [employer].- She is considered severely immuncompromised based on on BTKi therapy, i.e., acalabrutinib, in the last 6 months. Please contact [facility] to resolve flag. --Shiva Mckeon, [facility] 10/09/21 tested negative for covid, patient is sx free. > 20 days since onset. LD DFCI 08/15/2021 08/15/2021 10/23/2021 9:50 AM E DT COVID-19 07/15/2022 07/15/2022 08/05/2022 1:21 AM EDT COVID-19 02/05/2023 02/05/2023 02/26/2023 1:23 AM EST documented as of this encounter Care Teams Regulatory Manager Relationship Specialty Start Date End Date David March MD [email or web address] PCP - General Internal Medicine 08/05/17 Sherri Yang MD [address] [place] [address] [email or web address] Referring Physician Hematology and Oncology 08/05/17 Jg Morgan MD, PhD [address] [place] [address] [email or web address] Primary Oncologist Oncology 08/05/17 Mary Lucas, RN [address] [place] [address] [email or web address] Primary Nurse 08/06/21 documented as of this encounter Additional Source Comments The information contained in this document represents components of the legal health record. It is not the complete legal health record.[facility]
--- OUTSIDE RECORDS SUMMARY | 2025-03-07 20:25 | XMS_ITS | Encounter Summary ---
Author Organization [facility] Address [address] [place] [address] Phone Care Team Providers Care Fountain Server Name Role Phone David March MD Primary Care Provider [phone] Sherri Yang MD Unavailable [phone] Jg Morgan MD, PhD Unavailable [phone] Mary Lucas RN Unavailable [phone] Encounter Details Date Type Department Care Team (Late st Contact Info) Description 03/31/2021 Procedure Pass Meryl Lank Imaging Department, [facility] [place], [address], Floor [address]1 [place] [phone] Social History Tobacco Use Types Packs/Day Years [...] PM EST Blood Draw Infusion Therapy Services [place] [address], [facility] [address], 7th [place] [address] Jg Morgan MD, PhD [address] [place] [phone] Dexter@[facility] Alexandra Suarez RN [address] [place] [phone] [email or web address]@[email or web address] 03/18/2025 2:00 PM EST Infusion Infusion Therapy Services [place] [address], [address], [address]th [place] [address] Jg Morgan MD, PhD [address] [place] [address] 834[address] Dexter@[facility] Cathy Luciano RN [address] [place] [address] [email or web address] 04/25/2025 10:10 AM EST Blood Draw Laboratory Services, [address], 2nd [place] [address] Jg Morgan MD, PhD [address] [place] [phone] Dexter@[facility] 04/25/2025 11:00 AM EST Office Visit [facility], Division of Hematologic Oncology, [address], [address] [place] [address] Alfa Olivia, SYSTEM SAFETY ENGINEER [address] [place] [phone] [email or web address] 04/25/2025 12:00 PM EST Infusion Infusion Therapy Services [place] [address], [address], [address] [place] [address] Jg Morgan MD, PhD [address] [place] [address] 723[address] Dexter@[facility] 07/18/2025 9:10 AM EDT Blood Draw Laboratory Services, [address], [address] [place] [address] Jg Morgan MD, PhD [address] [place] [address] 7[address] Dexter@[facility] 07/18/2025 10:00 AM EDT Office Visit [facility], Division of Hematologic Oncology, [address], [address] [place] [address] Jg Morgan MD, PhD [address] [place] [address] 55186 Dexter@[facility] 10/10/2025 9:10 AM EDT Blood Draw Laboratory Services, [address], [address] [place] [address] Jg Morgan MD, PhD [address] [place] [address] 06184 Dexter@[facility] 10/10/2025 10:00 AM EDT Office Visit [facility], Division of Hematologic Oncology, [address], [address] [place] [address] Alfa Olivia, SYSTEM SAFETY ENGINEER [address] [place] [address] [email or web address] documented as of this encounter Visit Diagnoses Not on filedocumented in this encounter Additional Health Concerns Infection Onset Date Last Indicated Resolved Time 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 Antigen at home test positive 08/15. Had outside molecular testing done. Have requested results be entered into [employer].- She is considered severely immuncompromised based on on BTKi therapy, i.e., acalabrutinib, in the last 6 months. Please contact [facility] to resolve flag. --Shiva Mckeon, [facility] 10/09/21 tested negative for covid, patient is sx free. > 20 days since onset. LD DFCI 08/15/2021 08/15/2021 10/23/2021 9:50 AM E DT COVID-19 07/15/2022 07/15/2022 08/05/2022 1:21 AM EDT COVID-19 02/05/2023 02/05/2023 02/26/2023 1:23 AM EST documented as of this encounter Care Teams Fountain Server Relationship Specialty Start Date End Date David March MD [email or web address] PCP - General Internal Medicine 08/05/17 Sherri Yang MD [address] [place] [address] [email or web address] Referring Physician Hematology and Oncology 08/05/17 Jg Morgan MD, PhD [address] [place] [phone] Dexter@[email or web address] Primary Oncologist Oncology 08/05/17 Mary Lucas, RN [address] [place] [phone] [email or web address] Primary Nurse 08/06/21 documented as of this encounter Additional Source Comments The information contained in this document represents components of the legal health record. It is not the complete legal health record.[facility]
--- OUTSIDE RECORDS SUMMARY | 2025-03-07 20:25 | XMS_ITS | Encounter Summary ---
Author Organization [facility] Address [address] [place] [address] Phone Care Team Providers Care Machine Presser Name Role Phone David March MD Primary Care Provider [phone] Sherri Yang MD Unavailable [phone] Jg Morgan MD, PhD Unavailable [phone] Mary Lucas RN Unavailable [phone] Reason for Visit * Reason Comments Medication Refill Encounter Details Date Type Department Care Team (Late st Contact Info) Description 02/15/2021 Refill [facility], Division of Hematologic Oncology, [facility] [place] [address] [place] [address], 7th [place] [address] Jg Morgan MD, PhD [address] [place] [address] [email or web address] Medication Refill Social History Tobacco Use [...] Blood Draw Infusion Therapy Services [place] [address], [address], 7th [place] [address] Jg Morgan MD, PhD [address] [place] [phone] Dexter@[facility] Alexandra Suarez RN [address] [place] [address] Landry@[facility] 03/18/2025 2:00 PM EST Infusion Infusion Therapy Services [place] [address] [place] [address], 7th [place] [address] Jg Morgan MD, PhD [address] [place] [address] Dexter@[facility] Cathy Luciano RN [address] [place] [address] [email or web address] 04/25/2025 10:10 AM EST Blood Draw Laboratory Services, [address], 2nd [place] [address] Jg Morgan MD, PhD [address] [place] [phone] Dexter@[facility] 04/25/2025 11:00 AM EST Office Visit [facility], Division of Hematologic Oncology, [address], [address]th [place] [address] Alfa Olivia, DEEDEE [address] [place] [address] [email or web address] 04/25/2025 12:00 PM EST Infusion Infusion Therapy Services [facility], [address], [address] [place] [address] Jg Morgan MD, PhD [address] [place] [address] Dexter@[facility] 07/18/2025 9:10 AM EDT Blood Draw Laboratory Services, [address], [address] [place] [address] Jg Morgan MD, PhD [address] [place] [address] 42473 Dexter@[facility] 07/18/2025 10:00 AM EDT Office Visit [facility], Division of Hematologic Oncology, [address], [address] [place] [address] Jg Morgan MD, PhD [address] [place] [address] 8[address]64 Dexter@[facility] 10/10/2025 9:10 AM EDT Blood Draw Laboratory Services, [address], [address] [place] [address] Jg Morgan MD, PhD [address] [place] [address] 6[address] Dexter@[facility] 10/10/2025 10:00 AM EDT Office Visit [facility], Division of Hematologic Oncology, [address], [address] [place] [address] Alfa Olivia, DEEDEE [address] [place] [address] [email or web address] documented as of this encounter Visit Diagnoses Not on filedocumented in this encounter Additional Health Concerns Infection Onset Date Last Indicated Resolved Time 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 Antigen at home test positive 08/15. Had outside molecular testing done. Have requested results be entered into [employer].- She is considered severely immuncompromised based on on BTKi therapy, i.e., acalabrutinib, in the last 6 months. Please contact [facility] to resolve flag. --Shiva Mckeon, [facility] 10/09/21 tested negative for covid, patient is sx free. > 20 days since onset. LD DFCI 08/15/2021 08/15/2021 10/23/2021 9:50 AM E DT COVID-19 07/15/2022 07/15/2022 08/05/2022 1:21 AM EDT COVID-19 02/05/2023 02/05/2023 02/26/2023 1:23 AM EST documented as of this encounter Care Teams Machine Presser Relationship Specialty Start Date End Date David March MD [email or web address] PCP - General Internal Medicine 08/05/17 Sherri Yang MD [address] [place] [phone] [email or web address] Referring Physician Hematology and Oncology 08/05/17 Jg Morgan MD, PhD [address] [place] [address] [email or web address] Primary Oncologist Oncology 08/05/17 Mary Lucas, RN [address] [place] [address] [email or web address] Primary Nurse 08/06/21 documented as of this encounter Additional Source Comments The information contained in this document represents components of the legal health record. It is not the complete legal health record.[facility]
--- OUTSIDE RECORDS SUMMARY | 2025-03-07 20:25 | XMS_ITS ---
Author Organization [facility] Address [address] [place] [address] Phone Care Team Providers Care Restaurant Managing Partner Name Role Phone David March MD Primary Care Provider [phone] Sherri Yang MD Unavailable [phone] Jg Morgan MD, PhD Unavailable [phone] Mary Lucas RN Unavailable [phone] Active Problems Problem Noted Date Diagnosed Date CLL (chronic lymphocytic leukemia) 08/18/2017 Current Treatment and Therapy Plans 20-394 ACALABRUTINIB + UMBRALISIB + UBLITUXIMAB C1-12* Plan Start Date:04/11/2020 Plan Provider:Jg Morgan MD, PhD Linked Problems CLL (chronic lymphocytic sugar kemia) Treatment Medications ID-acalabrutinib <CALQUENCE> (20-394)ID-ublituximab <TG-1101> (20-394) IVPB 250 mL BagID-ublituximab <TG-1101> (20-394) IVPB 500 mL BagID-umbralisib <TGR-1202> (20-394) IMMUNE GLOBULIN (IVIG)??* Plan Start Date:11/08/2024 Plan Provider:Alfa Olivia CNP Linked Problems CLL (chronic lymphocytic sugar kemia) Treatment Medications No medications scheduled. Past Treatment and Therapy Plans Infectious Disease Therapy Plan Supplemental Plan Name Start Date Discontinue Date Treatment Medications Discontinue Reason Plan Provider BEBTELOVIMAB (EUA) 08/15/2021 07/31/2022 No medications scheduled. a. Therapy Alfa Frazier CNP Oncology Therapy Plan Plan Name Start Date Discontinue Date Treatment Medications Discontinue Reason Plan Provider IMMUNE GLOBULIN (IVIG) 09/16/2022 08/05/2023 No medications scheduled. a. Therapy Alfa Frazier, DEEDEE
--- OUTSIDE RECORDS SUMMARY | 2025-03-07 20:25 | XMS_ITS | Encounter Summary ---
Author Organization [facility] Address [address] [place] [address] Phone Care Team Providers Care Submarine Cable Equipment Technician Name Role Phone David March MD Primary Care Provider [phone] Sherri Yang MD Unavailable [phone] Jg Morgan MD, PhD Unavailable [phone] Mary Lucas RN Unavailable [phone] Encounter Details Date Type Department Care Team (Late st Contact Info) Description 10/17/2020 Procedure Pass [facility]yl [facility] Imaging Department, [facility] [place], [address], Floor L1 [place] [id number] Social History Tobacco Use Types Packs/Day Years [...] PM EST Blood Draw Infusion Therapy Services [place] [address], [facility] [address], 7th [place] [address] Jg Morgan MD, PhD [address] [place] [address] 08995 Dexter@[email or web address] Alexandra Suarez RN [address] [place] [address] Landry@[facility] 03/18/2025 2:00 PM EST Infusion Infusion Therapy Services [place] [address], [address], 7th [place] [address] Jg Morgan MD, PhD [address] [place] [address] Dexter@[email or web address] Cathy Luciano RN [address] [place] [address] [email or web address] 04/25/2025 10:10 AM EST Blood Draw Laboratory Services, [address], 2nd [place] [address] Jg Morgan MD, PhD [address] [place] [address] 605[address] Dexter@[facility] 04/25/2025 11:00 AM EST Office Visit [facility], Division of Hematologic Oncology, [address], 7th [place] [address] Alfa Olivia, RAW CHEESE WORKER [address] [place] [address] 364[address] [email or web address] 04/25/2025 12:00 PM EST Infusion Infusion Therapy Services [address] [address], [address], 9th [place] [address] Jg Morgan MD, PhD [address] [place] [address] Dexter@[email or web address] 07/18/2025 9:10 AM EDT Blood Draw Laboratory Services, [address], 2nd [place] [address] Jg Morgan MD, PhD [address] [place] [address] 701[address] Dexter@[facility] 07/18/2025 10:00 AM EDT Office Visit [facility], Division of Hematologic Oncology, [address], [address] [place] [address] Jg Morgan MD, PhD [address] [place] [address] 55288 Dexter@[facility] 10/10/2025 9:10 AM EDT Blood Draw Laboratory Services, [address], [address] [place] [address] Jg Morgan MD, PhD [address] [place] [address] 855[address] Dexter@[facility] 10/10/2025 10:00 AM EDT Office Visit [facility], Division of Hematologic Oncology, [address], [address] [place] [address] Alfa Olivia, RAW CHEESE WORKER [address] [place] [address] [email or web address] documented as of this encounter Visit Diagnoses Not on filedocumented in this encounter Additional Health Concerns Infection Onset Date Last Indicated Resolved Time 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 Antigen at home test positive 08/15. Had outside molecular testing done. Have requested results be entered into [employer].- She is considered severely immuncompromised based on on BTKi therapy, i.e., acalabrutinib, in the last [address] [facility] to resolve flag. --Shiva Mckeon, [facility] 10/09/21 tested negative for covid, patient is sx free. > 20 days since onset. LD DFCI 08/15/2021 08/15/2021 10/23/2021 9:50 AM E DT COVID-19 07/15/2022 07/15/2022 08/05/2022 1:21 AM EDT COVID-19 02/05/2023 02/05/2023 02/26/2023 1:23 AM EST documented as of this encounter Care Teams Submarine Cable Equipment Technician Relationship Specialty Start Date End Date David March MD [email or web address] PCP - General Internal Medicine 08/05/17 Sherri Yang MD [address] [place] [address] [email or web address] [email or web address] Referring Physician Hematology and Oncology 08/05/17 Jg Morgan MD, PhD [address] [place] [address] [email or web address] Primary Oncologist Oncology 08/05/17 Mary Lucas, RN [address] [place] [address] [email or web address] Primary Nurse 08/06/21 documented as of this encounter Additional Source Comments The information contained in this document represents components of the legal health record. It is not the complete legal health record.[facility]
--- OUTSIDE RECORDS SUMMARY | 2025-03-07 20:25 | XMS_ITS | Encounter Summary ---
Author Organization [facility] Address [address] [place] [address] Phone Care Team Providers Care Roofer Vinyl Coating Name Role Phone David March MD Primary Care Provider [phone] Sherri Yang MD Unavailable [phone] Jg Morgan MD, PhD Unavailable [phone] Mary Lucas RN Unavailable [phone] Encounter Details Date Type Department Care Team (Late st Contact Info) Description 03/31/2021 Procedure Pass Meryl Lank Imaging Department, [facility] [place], [address], Floor L1 [place] [id number] Social History Tobacco Use Types Packs/Day Years [...] PM EST Blood Draw Infusion Therapy Services [place] [address], [facility] [address], 7th [place] [address] Jg Morgan MD, PhD [address] [place] [address] [phone] [email or web address]@[email or web address] Alexandra Suarez RN [address] [place] [address] Landry@[email or web address] 03/18/2025 2:00 PM EST Infusion Infusion Therapy Services [address] [address], [address], 7th [place] [address] Jg Morgan MD, PhD [address] [place] [address] 570[address] [email or web address] Cathy Luciano RN [address] [place] [address] [email or web address] 04/25/2025 10:10 AM EST Blood Draw Laboratory Services, [address], 2nd [place] [address] Jg Morgan MD, PhD [address] [place] [address] 223[address] Dexter@[email or web address] 04/25/2025 11:00 AM EST Office Visit [facility], Division of Hematologic Oncology, [address], [address]th [place] [address] Alfa Olivia, COMPLIANCE EXAMINER [address] [place] [address] [email or web address] 04/25/2025 12:00 PM EST Infusion Infusion Therapy Services [address], [address], [address]th [place] [address] Jg Morgan MD, PhD [address] [place] [address] 229[address] Dexter@[email or web address] 07/18/2025 9:10 AM EDT Blood Draw Laboratory Services, [address], 2nd [place] [address] Jg Morgan MD, PhD [address] [place] [address] 64013 Dexter@[email or web address] 07/18/2025 10:00 AM EDT Office Visit [facility], Division of Hematologic Oncology, [address], [address] [place] [address] Jg Morgan MD, PhD [address] [place] [address] 816[address] Dexter@[facility] 10/10/2025 9:10 AM EDT Blood Draw Laboratory Services, [address], [address] [place] [address] Jg Morgan MD, PhD [address] [place] [address] 94990 Dexter@[facility] 10/10/2025 10:00 AM EDT Office Visit [facility], Division of Hematologic Oncology, [address], [address] [place] [address] 8[address] Alfa Olivia, COMPLIANCE EXAMINER [address] [place] [address] [email or web address] documented as of this encounter Visit Diagnoses Not on filedocumented in this encounter Additional Health Concerns Infection Onset Date Last Indicated Resolved Time 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 Antigen at home test positive 08/15. Had outside molecular testing done. Have requested results be entered into [employer].- She is considered severely immuncompromised based on on BTKi therapy, i.e., acalabrutinib, in the last 6 months. Please contact [facility] to resolve flag. --Shiva Mckeon, [facility] 10/09/21 tested negative for covid, patient is sx free. > 20 days since onset. LD DFCI 08/15/2021 08/15/2021 10/23/2021 9:50 AM E DT COVID-19 07/15/2022 07/15/2022 08/05/2022 1:21 AM EDT COVID-19 02/05/2023 02/05/2023 02/26/2023 1:23 AM EST documented as of this encounter Care Teams Roofer Vinyl Coating Relationship Specialty Start Date End Date David March MD [email or web address] PCP - General Internal Medicine 08/05/17 Sherri Yang MD [address] [place] [address] [email or web address] Referring Physician Hematology and Oncology 08/05/17 Jg Morgan MD, PhD [address] [place] [address] 811[address] [email or web address] Primary Oncologist Oncology 08/05/17 Mary Lucas, RN [address] [place] [address] 27994 [email or web address] Primary Nurse 08/06/21 documented as of this encounter Additional Source Comments The information contained in this document represents components of the legal health record. It is not the complete legal health record.[facility]
--- OUTSIDE RECORDS SUMMARY | 2025-03-07 20:25 | XMS_ITS | Encounter Summary ---
Author Organization [facility] Address [address] [place] [address] Phone Care Team Providers Care Outside Plant Technician Name Role Phone David March MD Primary Care Provider [phone] Sherri Yang MD Unavailable [phone] Jg Morgan MD, PhD Unavailable [phone] Mary Lucas RN Unavailable [phone] Encounter Details Date Type Department Care Team (Late st Contact Info) Description 08/22/2020 Procedure Pass Meryl Lank Imaging Department, [facility] [place], [address], Floor L1 [place] [phone] Social History Tobacco Use Types Packs/Day Years [...] PM EST Blood Draw Infusion Therapy Services [place] [address], [facility] [address], 7th [place] [address] Jg Morgan MD, PhD [address] [place] [address] [phone] Dexter@[email or web address] Alexandra Suarez RN [address] [place] [address] Landry@[facility] 03/18/2025 2:00 PM EST Infusion Infusion Therapy Services [address] [address], [address], [address]th [place] [address] Jg Morgan MD, PhD [address] [place] [address] 329[address] [email or web address] Cathy Luciano RN [address] [place] [address] [email or web address] 04/25/2025 10:10 AM EST Blood Draw Laboratory Services, [address], 2nd [place] [address] Jg Morgan MD, PhD [address] [place] [address] 744[address] Dexter@[facility] 04/25/2025 11:00 AM EST Office Visit [facility], Division of Hematologic Oncology, [address], [address]th [place] [address] Alfa Olivia, DIGITAL COMPUTER SYSTEMS ANALYST [address] [place] [address] [email or web address] 04/25/2025 12:00 PM EST Infusion Infusion Therapy Services [address], [address], [address]th [place] [address] Jg Morgan MD, PhD [address] [place] [address] [phone] [email or web address]@[facility] 07/18/2025 9:10 AM EDT Blood Draw Laboratory Services, [address], [address]nd [place] [address] Jg Morgan MD, PhD [address] [place] [address] 93432 Dexter@[facility] 07/18/2025 10:00 AM EDT Office Visit [facility], Division of Hematologic Oncology, [address], [address] [place] [address] Jg Morgan MD, PhD [address] [place] [address] 01219 Dexter@[facility] 10/10/2025 9:10 AM EDT Blood Draw Laboratory Services, [address], [address] [place] [address] Jg Morgan MD, PhD [address] [place] [address] 85440 Dexter@[facility] 10/10/2025 10:00 AM EDT Office Visit [facility], Division of Hematologic Oncology, [address], [address] [place] [address] Alfa Olivia, DIGITAL COMPUTER SYSTEMS ANALYST [address] [place] [address] 84966 [email or web address] documented as of this encounter Visit Diagnoses Not on filedocumented in this encounter Additional Health Concerns Infection Onset Date Last Indicated Resolved Time 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 Antigen at home test positive 08/15. Had outside molecular testing done. 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 Please contact [facility] to resolve flag. --Shiva Mckeon, [facility] 10/09/21 tested negative for covid, patient is sx free. > 20 days since onset. LD DFCI 08/15/2021 08/15/2021 10/23/2021 9:50 AM E DT COVID-19 07/15/2022 07/15/2022 08/05/2022 1:21 AM EDT COVID-19 02/05/2023 02/05/2023 02/26/2023 1:23 AM EST documented as of this encounter Care Teams Outside Plant Technician Relationship Specialty Start Date End Date David March MD [email or web address] PCP - General Internal Medicine 08/05/17 Sherri Yang MD [address] [place] [address] [email or web address] Referring Physician Hematology and Oncology 08/05/17 Jg Morgan MD, PhD [address] [place] [address] 51731 [email or web address] Primary Oncologist Oncology 08/05/17 Mary Lucas, RN [address] [place] [address] 85125 [email or web address] Primary Nurse 08/06/21 documented as of this encounter Additional Source Comments The information contained in this document represents components of the legal health record. It is not the complete legal health record.[facility]
--- OUTSIDE RECORDS SUMMARY | 2025-03-07 20:25 | XMS_ITS | Encounter Summary ---
Author Organization [facility] Address [address] [place] [address] Phone Care Team Providers Care Flat Drier Name Role Phone David March MD Primary Care Provider [phone] Sherri Yang MD Unavailable [phone] Jg Morgan MD, PhD Unavailable [phone] Mary Lucas RN Unavailable [phone] Encounter Details Date Type Department Care Team (Late st Contact Info) Description 04/29/2020 Procedure Pass Meryl Lank Imaging Department, [facility] [place], [address], Floor L1 [place] [phone] Social History Tobacco Use Types Packs/Day Years [...] PM EST Blood Draw Infusion Therapy Services [place] [address], [facility] [address], 7th [place] [address] Jg Morgan MD, PhD [address] [place] [address] 39483 Dexter@[email or web address] Alexandra Suarez RN [address] [place] [address] Landry@[facility] 03/18/2025 2:00 PM EST Infusion Infusion Therapy Services [facility] [address], [address], [address]th [place] [address] Jg Morgan MD, PhD [address] [place] [address] 64125 Dexter@[email or web address] Cathy Luciano RN [address] [place] [address]68 [email or web address] 04/25/2025 10:10 AM EST Blood Draw Laboratory Services, [address], [address]nd [place] [address] Jg Morgan MD, PhD [address] [place] [address] 94300 Dexter@[facility] 04/25/2025 11:00 AM EST Office Visit [facility], Division of Hematologic Oncology, [address], [address] [place] [address] Afla Olivia, LOBSTER CATCHER [address] [place] [address] [email or web address] 04/25/2025 12:00 PM EST Infusion Infusion Therapy Services [address], [address], [address]th [place] [address] Jg Mrogan MD, PhD [address] [place] [address] 63577 Dexter@[facility] 07/18/2025 9:10 AM EDT Blood Draw Laboratory Services, [address], [address] [place] [address] Jg Morgan MD, PhD [address] [place] [address] 51870 Dexter@[facility] 07/18/2025 10:00 AM EDT Office Visit [facility], Division of Hematologic Oncology, [address], [address] [place] [address] Jg Morgan MD, PhD [address] [place] [address] 10234 Dexter@[facility] 10/10/2025 9:10 AM EDT Blood Draw Laboratory Services, [address], [address] [place] [address] Jg Morgan MD, PhD [address] [place] [address] 06309 Dexter@[facility] 10/10/2025 10:00 AM EDT Office Visit [facility], Division of Hematologic Oncology, [address], [address] [place] [address] 707[address] Alfa Olivia, LOBSTER CATCHER [address] [place] [address] 55[address] [email or web address] documented as of this encounter Visit Diagnoses Not on filedocumented in this encounter Additional Health Concerns Infection Onset Date Last Indicated Resolved Time 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 Antigen at home test positive 08/15. Had outside molecular testing done. Have requested results be entered into [employer].- She is considered severely immuncompromised based on on BTKi therapy, i.e., acalabrutinib, in the last 6 months. Please contact [facility] to resolve flag. --Shiva Mckeon, [facility] 10/09/21 tested negative for covid, patient is sx free. > 20 days since onset. LD DFCI 08/15/2021 08/15/2021 10/23/2021 9:50 AM E DT COVID-19 07/15/2022 07/15/2022 08/05/2022 1:21 AM EDT COVID-19 02/05/2023 02/05/2023 02/26/2023 1:23 AM EST documented as of this encounter Care Teams Flat Drier Relationship Specialty Start Date End Date David March MD [email or web address] PCP - General Internal Medicine 08/05/17 Sherri Yang MD [address] [place] [address] 11626 [email or web address] Bittar Referring Physician Hematology and Oncology 08/05/17 Jg Morgan MD, PhD [address] [place] [address] 10519 [email or web address] Primary Oncologist Oncology 08/05/17 Mary Lucas, RN [address] [place] [address] 976[address] [email or web address] Primary Nurse 08/06/21 documented as of this encounter Additional Source Comments The information contained in this document represents components of the legal health record. It is not the complete legal health record.[facility]
--- OUTSIDE RECORDS SUMMARY | 2025-03-07 20:25 | XMS_ITS | Encounter Summary ---
Author Organization [facility] Address [address] [place] [address] Phone Care Team Providers Care Box Machine Operator Name Role Phone David March MD Primary Care Provider [phone] Sherri Yang MD Unavailable [phone] Jg Morgan MD, PhD Unavailable [phone] Mary Lucas RN Unavailable [phone] Encounter Details Date Type Department Care Team (Late st Contact Info) Description 04/29/2020 Procedure Pass Meryl Lank Imaging Department, [facility] [place], [address], Floor L[address] [place] [phone] Social History Tobacco Use Types Packs/Day Years [...] PM EST Blood Draw Infusion Therapy Services [place] [address], [facility] [address], 7th [place] [address] Jg Morgan MD, PhD [address] [place] [address] 47900 Dexter@[facility] Alexandra Suarez RN [address] [place] [address] 628[address] Landry@[facility] 03/18/2025 2:00 PM EST Infusion Infusion Therapy Services [address] [address], [address], [address]th [place] [address] Jg Morgan MD, PhD [address] [place] [address] 66[address] Dexter@[email or web address] Cathy Luciano RN [address] [place] [address] [email or web address] 04/25/2025 10:10 AM EST Blood Draw Laboratory Services, [address], 2nd [place] [address] Jg Mrogan MD, PhD [address] [place] [address]85 Dexter@[facility] 04/25/2025 11:00 AM EST Office Visit [facility], Division of Hematologic Oncology, [address], [address]th [place] [address] Alfa Olivia, MANAGEMENT RETAIL INTERN [address] [place] [address] 99772 [email or web address] 04/25/2025 12:00 PM EST Infusion Infusion Therapy Services [address] [address], [address], [address]th [place] [address] Jg Morgan MD, PhD [address] [place] [address]75 Dexter@[facility] 07/18/2025 9:10 AM EDT Blood Draw Laboratory Services, [address], [address]nd [place] [address] Jg Morgan MD, PhD [address] [place] [address] 79033 Dexter@[facility] 07/18/2025 10:00 AM EDT Office Visit [facility], Division of Hematologic Oncology, [address], [address] [place] [address] Jg Morgan MD, PhD [address] [place] [address] 20450 Dexter@[facility] 10/10/2025 9:10 AM EDT Blood Draw Laboratory Services, [address], [address] [place] [address] Jg Morgan MD, PhD [address] [place] [address] 94380 Dexter@[facility] 10/10/2025 10:00 AM EDT Office Visit [facility], Division of Hematologic Oncology, [address], [address] [place] [address] Alfa Olivia, MANAGEMENT RETAIL INTERN [address] [place] [address] 94[address] [email or web address] documented as of this encounter Visit Diagnoses Not on filedocumented in this encounter Additional Health Concerns Infection Onset Date Last Indicated Resolved Time 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 Antigen at home test positive 08/15. Had outside molecular testing done. Have requested results be entered into [employer].- She is considered severely immuncompromised based on on BTKi therapy, i.e., acalabrutinib, in the last 6 months. Please contact [facility] to resolve flag. --Shiva Mckeon, [facility] 10/09/21 tested negative for covid, patient is sx free. > 20 days since onset. LD DFCI 08/15/2021 08/15/2021 10/23/2021 9:50 AM E DT COVID-19 07/15/2022 07/15/2022 08/05/2022 1:21 AM EDT COVID-19 02/05/2023 02/05/2023 02/26/2023 1:23 AM EST documented as of this encounter Care Teams Box Machine Operator Relationship Specialty Start Date End Date David March MD [email or web address] PCP - General Internal Medicine 08/05/17 Sherri Yang MD [address] [place] [address] [email or web address] Referring Physician Hematology and Oncology 08/05/17 Jg Morgan MD, PhD [address] [place] [address] [email or web address] Primary Oncologist Oncology 08/05/17 Mary Lucas, RN [address] [place] [address] 8[address] AILEEN@[email or web address] Primary Nurse 08/06/21 documented as of this encounter Additional Source Comments The information contained in this document represents components of the legal health record. It is not the complete legal health record.[facility]
--- OUTSIDE RECORDS SUMMARY | 2025-03-07 20:25 | XMS_ITS | Encounter Summary ---
Author Organization [facility] Address [address] [place] [address] Phone Care Team Providers Care Law Professor Name Role Phone David March MD Primary Care Provider [phone] Sherri Yang MD Unavailable [phone] Jg Morgan MD, PhD Unavailable [phone] Mary Lucas RN Unavailable [phone] Encounter Details Date Type Department Care Team (Late st Contact Info) Description 08/22/2020 Procedure Pass [facility] Imaging Department, [facility] [place], [address], Floor L1 [place] [phone] Social History Tobacco Use Types Packs/Day Years [...] PM EST Blood Draw Infusion Therapy Services [place] [address], [facility] [address], 7th [place] [address] Jg Morgan MD, PhD [address] [place] [phone] Dexter@[email or web address] Alexandra Suarez RN [address] [place] [address] Landry@[facility] 03/18/2025 2:00 PM EST Infusion Infusion Therapy Services [place] [address], [address], [address] [place] [address] Jg Morgan MD, PhD [address] [place] [address] Dexter@[facility] Cathy Luciano RN [address] [place] [address] [email or web address] 04/25/2025 10:10 AM EST Blood Draw Laboratory Services, [address], [address] [place] [address] Jg Morgan MD, PhD [address] [place] [address] Dexter@[facility] 04/25/2025 11:00 AM EST Office Visit [facility], Division of Hematologic Oncology, [address], [address] [place] [address] Alfa Olivia, WEB OPERATIONS MANAGER [address] [place] [address] [email or web address] 04/25/2025 12:00 PM EST Infusion Infusion Therapy Services [facility] [address], [address], [address] [place] [address] Jg Morgan MD, PhD [address] [place] [address] Dexter@[facility] 07/18/2025 9:10 AM EDT Blood Draw Laboratory Services, [address], [address] [place] [address] Jg Morgan MD, PhD [address] [place] [address] Dexter@[facility] 07/18/2025 10:00 AM EDT Office Visit [facility], Division of Hematologic Oncology, [address], [address] [place] [address] Jg Morgan MD, PhD [address] [place] [address] Dexter@[facility] 10/10/2025 9:10 AM EDT Blood Draw Laboratory Services, [address], [address] [place] [address] Jg Morgan MD, PhD [address] [place] [address] 364[address] Dexter@[facility] 10/10/2025 10:00 AM EDT Office Visit [facility], Division of Hematologic Oncology, [address], [address] [place] [address] Alfa Olivia, WEB OPERATIONS MANAGER [address] [place] [address] [email or web address] documented as of this encounter Visit Diagnoses Not on filedocumented in this encounter Additional Health Concerns Infection Onset Date Last Indicated Resolved Time 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 Antigen at home test positive 08/15. Had outside molecular testing done. Have requested results be entered into [employer].- She is considered severely immuncompromised based on on BTKi therapy, i.e., acalabrutinib, in the last 6 months. Please contact [facility] to resolve flag. --Shiva Mckeon, [facility] 10/09/21 tested negative for covid, patient is sx free. > 20 days since onset. LD DFCI 08/15/2021 08/15/2021 10/23/2021 9:50 AM E DT COVID-19 07/15/2022 07/15/2022 08/05/2022 1:21 AM EDT COVID-19 02/05/2023 02/05/2023 02/26/2023 1:23 AM EST documented as of this encounter Care Teams Law Professor Relationship Specialty Start Date End Date David March MD [email or web address] PCP - General Internal Medicine 08/05/17 Sherri Yang MD [address] [place] [address] [email or web address] Referring Physician Hematology and Oncology 08/05/17 Jg Morgan MD, PhD [address] [place] [address] Dexter@[email or web address] Primary Oncologist Oncology 08/05/17 Mary Lucas, RN [address] [place] [address] [email or web address] Primary Nurse 08/06/21 documented as of this encounter Additional Source Comments The information contained in this document represents components of the legal health record. It is not the complete legal health record.[facility]
--- OUTSIDE RECORDS SUMMARY | 2025-03-07 20:25 | XMS_ITS | Encounter Summary ---
Author Organization [facility] Address [address] [place] [address] Phone Care Team Providers Care Hardware Installation Coordinator Name Role Phone David March MD Primary Care Provider [phone] Sherri Yang MD Unavailable [phone] Jg Morgan MD, PhD Unavailable [phone] Mary Lucas RN Unavailable [phone] Encounter Details Date Type Department Care Team (Late st Contact Info) Description 09/29/2022 Procedure Pass Meryl Lank Imaging Department, [facility] [place], [place] [address], Floor [address]1 [place] [address] Social History Tobacco Use Types Packs/Day Years [...] PM EST Blood Draw Infusion Therapy Services [address], [address]th [place] [address] Jg Morgan MD, PhD [address] [place] [phone] Dexter@[email or web address] Aleaxndra Suarez RN [address] [place] [address] Landry@[facility] 03/18/2025 2:00 PM EST Infusion Infusion Therapy Services [address], [address] [place] [address] Jg Morgan MD, PhD [address] [place] [address] Dexter@[email or web address] Cathy Luciano RN [address] [place] [address] [email or web address] 04/25/2025 10:10 AM EST Blood Draw Laboratory Services, [address], 2nd [place] [address] Jg Morgan MD, PhD [address] [place] [address] Dexter@[email or web address] 04/25/2025 11:00 AM EST Office Visit [facility], Division of Hematologic Oncology, [address], [address]th [place] [address] Alfa Olivia, SPECIAL EDUCATION TUTOR [address] [place] [address] [email or web address] 04/25/2025 12:00 PM EST Infusion Infusion Therapy Services [facility] [address], [address], 9th [place] [address] Jg Morgan MD, PhD [address] [place] [address] Dexter@[email or web address] 07/18/2025 9:10 AM EDT Blood Draw Laboratory Services, [address], [address] [place] [address] Jg Morgan MD, PhD [address] [place] [address] 16[address] Dexter@[email or web address] 07/18/2025 10:00 AM EDT Office Visit [facility], Division of Hematologic Oncology, [address], [address]th [place] [address] Jg Morgan MD, PhD [address] [place] [address] Dexter@[facility] 10/10/2025 9:10 AM EDT Blood Draw Laboratory Services, [address], [address] [place] [address] Jg Morgan MD, PhD [address] [place] [address] Dexter@[email or web address] 10/10/2025 10:00 AM EDT Office Visit [facility], Division of Hematologic Oncology, [address], [address]th [place] [address] Alfa Olivia CNP [address] [place] [address] [email or web address] documented as of this encounter Visit Diagnoses Not on filedocumented in this encounter Additional Health Concerns Infection Onset Date Last Indicated Resolved Time COVID-19 02/05/2023 02/05/2023 02/26/2023 1:23 AM EST documented as of this encounter Care Teams Hardware Installation Coordinator Relationship Specialty Start Date End Date David March MD [email or web address] PCP - General Internal Medicine 08/05/17 Sherri Yang MD [address] [place] [address] [email or web address] Referring Physician Hematology and Oncology 08/05/17 Jg Morgan MD, PhD [address] [place] [address] 9[address] Dexter@[email or web address] Primary Oncologist Oncology 08/05/17 Mary Lucas, RN [address] [place] [address] AILEEN@[facility] Primary Nurse 08/06/21 documented as of this encounter Additional Source Comments The information contained in this document represents components of the legal health record. It is not the complete legal health record.[facility]
--- OUTSIDE RECORDS SUMMARY | 2025-03-07 20:26 | XMS_ITS | Encounter Summary ---
Author Organization [facility] Address [address] [place] [address] Phone Care Team Providers Care Club Licensee Name Role Phone David March MD Primary Care Provider [phone] Sherri Yang MD Unavailable [phone] Jg Morgan MD, PhD Unavailable [phone] Mary Lucas RN Unavailable [phone] Encounter Details Date Type Department Care Team (Late st Contact Info) Description 03/05/2020 Procedure Pass [facility] [address] [place] [address] Social History Tobacco Use Types Packs/Day Years [...] PM EST Blood Draw Infusion Therapy Services [facility], [facility] [place] [address] [place] [address], 7th [place] [address] Jg Morgan MD, PhD [address] [place] [phone] Dexter@[facility] Alexandra Suarez RN [address] [place] [phone] Landry@[facility] 03/18/2025 2:00 PM EST Infusion Infusion Therapy Services [facility] [address], [address], [address]th [place] [address] Jg Morgan MD, PhD [address] [place] [address] Dexter@[facility] Cathy Luciano RN [address] [place] [address] [email or web address] 04/25/2025 10:10 AM EST Blood Draw Laboratory Services, [address], 2[address] [place] [address] Jg Morgan MD, PhD [address] [place] [address] Dexter@[facility] 04/25/2025 11:00 AM EST Office Visit [facility] Lymph[facility], Division of Hematologic Oncology, [address], [address]th [place] [address] Alfa Olivia, DEEDEE [address] [place] [address] [email or web address] 04/25/2025 12:00 PM EST Infusion Infusion Therapy Services [facility] [address], [address], [address]th [place] [address] Jg Morgan MD, PhD [address] [place] [address] Dexter@[facility] 07/18/2025 9:10 AM EDT Blood Draw Laboratory Services, [address], [address] [place] [address] Jg Morgan MD, PhD [address] [place] [address] Dexter@[facility] 07/18/2025 10:00 AM EDT Office Visit [facility], Division of Hematologic Oncology, [address], [address] [place] [address] Jg Morgan MD, PhD [address] [place] [address] 82067 Dexter@[facility] 10/10/2025 9:10 AM EDT Blood Draw Laboratory Services, [address], [address] [place] [address] Jg Morgan MD, PhD [address] [place] [address] 964[address] Dexter@[facility] 10/10/2025 10:00 AM EDT Office Visit [facility], Division of Hematologic Oncology, [address], [address] [place] [address] Alfa Olivia, REGULATORY AFFAIRS SPECIALIST [address] [place] [address] [email or web address] documented as of this encounter Visit Diagnoses Not on filedocumented in this encounter Additional Health Concerns Infection Onset Date Last Indicated Resolved Time 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 Antigen at home test positive 08/15. Had outside molecular testing done. Have requested results be entered into [employer].- She is considered severely immuncompromised based on on BTKi therapy, i.e., acalabrutinib, in the last 6 months. Please contact [facility] to resolve flag. --Shiva Mckeon, [facility] 10/09/21 tested negative for covid, patient is sx free. > 20 days since onset. LD DFCI 08/15/2021 08/15/2021 10/23/2021 9:50 AM E DT COVID-19 07/15/2022 07/15/2022 08/05/2022 1:21 AM EDT COVID-19 02/05/2023 02/05/2023 02/26/2023 1:23 AM EST documented as of this encounter Care Teams Club Licensee Relationship Specialty Start Date End Date David March MD [email or web address] PCP - General Internal Medicine 08/05/17 Sherri Yang MD [address] [place] [address] [email or web address] Referring Physician Hematology and Oncology 08/05/17 Jg Morgan MD, PhD [address] [place] [address] 10091 Dexter@[email or web address] Primary Oncologist Oncology 08/05/17 Mary Lucas, STEPHANIE [address] [place] [address] [email or web address] Primary Nurse 08/06/21 documented as of this encounter Additional Source Comments The information contained in this document represents components of the legal health record. It is not the complete legal health record.[facility]
--- OUTSIDE RECORDS SUMMARY | 2025-03-07 20:26 | XMS_ITS | Encounter Summary ---
Author Organization [facility] Address [address] [place] [address] Phone Care Team Providers Care Orientation And Mobility Instructor Name Role Phone David March MD Primary Care Provider [phone] Sherri Yang MD Unavailable [phone] Jg Morgan MD, PhD Unavailable [phone] Mary Lucas RN Unavailable [phone] Encounter Details Date Type Department Care Team (Late st Contact Info) Description 08/26/2017 Procedure Pass DF IMG OUTSIDE IMG [address] [place] [address] Social History Tobacco Use Types Packs/Day Years Used Date Smoking Tobacco: Never Assessed Comments Unknown Sex and Gender Information Value [...] PM EST Blood Draw Infusion Therapy Services [place] [address], [facility] [address], 7th [place] [address] Jg Morgan MD, PhD [address] [place] [address] Dexter@[facility] Alexandra Suarez RN [address] [place] [address] Landry@[facility] 03/18/2025 2:00 PM EST Infusion Infusion Therapy Services [facility] [address], [address], [address] [place] [address] Jg Morgan MD, PhD [address] [place] [address] Dexter@[facility] Cathy Luciano RN [address] [place] [address] [email or web address] 04/25/2025 10:10 AM EST Blood Draw Laboratory Services, [address], [address] [place] [address] Jg Morgan MD, PhD [address] [place] [address] Dexter@[facility] 04/25/2025 11:00 AM EST Office Visit [facility], Division of Hematologic Oncology, [address], [address] [place] [address] Alfa Olivia, DEEDEE [address] [place] [address] [email or web address] 04/25/2025 12:00 PM EST Infusion Infusion Therapy Services [facility] [address], [address], [address] [place] [address] Jg Morgan MD, PhD [address] [place] [address] Dexter@[facility] 07/18/2025 9:10 AM EDT Blood Draw Laboratory Services, [address], [address] [place] [address] Jg Morgan MD, PhD [address] [place] [address] Dexter@[facility] 07/18/2025 10:00 AM EDT Office Visit [facility], Division of Hematologic Oncology, [address], [address] [place] [address] Jg Morgan MD, PhD [address] [place] [address]29 Dexter@[facility] 10/10/2025 9:10 AM EDT Blood Draw Laboratory Services, [address], [address] [place] [address] Jg Morgan MD, PhD [address] [place] [address] 827[address] Dexter@[facility] 10/10/2025 10:00 AM EDT Office Visit [facility], Division of Hematologic Oncology, [address], [address] [place] [address] Alfa Olivia, INSTRUCTOR PRODUCT INSPECTION [address] [place] [address] [email or web address] documented as of this encounter Visit Diagnoses Not on filedocumented in this encounter Additional Health Concerns Infection Onset Date Last Indicated Resolved Time 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 Antigen at home test positive 08/15. Had outside molecular testing done. 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 Please contact [facility] to resolve flag. --Shiva Lozadaieh, [facility] 10/09/21 tested negative for covid, patient is sx free. > 20 days since onset. LD DFCI 08/15/2021 08/15/2021 10/23/2021 9:50 AM E DT COVID-19 07/15/2022 07/15/2022 08/05/2022 1:21 AM EDT COVID-19 02/05/2023 02/05/2023 02/26/2023 1:23 AM EST documented as of this encounter Care Teams Orientation And Mobility Instructor Relationship Specialty Start Date End Date David March MD [email or web address] PCP - General Internal Medicine 08/05/17 Sherri Yang MD [address] [place] [address] [email or web address] Referring Physician Hematology and Oncology 08/05/17 Jg Morgan MD, PhD [address] [place] [address] [email or web address] Primary Oncologist Oncology 08/05/17 Mary Lucas, STEPHANIE [address] [place] [address] AILEEN@[email or web address] Primary Nurse 08/06/21 documented as of this encounter Additional Source Comments The information contained in this document represents components of the legal health record. It is not the complete legal health record.[facility]
--- OUTSIDE RECORDS SUMMARY | 2025-03-07 20:26 | XMS_ITS | Encounter Summary ---
Author Organization [facility] Address [address] [place] [address] Phone Care Team Providers Care Communications Associate Name Role Phone David March MD Primary Care Provider [phone] Sherri Yang MD Unavailable [phone] Jg Morgan MD, PhD Unavailable [phone] Mary Lucas RN Unavailable [phone] Reason for Visit * Reason Comments Medication Refill Encounter Details Date Type Department Care Team (Late st Contact Info) Description 03/23/2022 Refill [facility], Division of Hematologic Oncology, [facility] [place] [address] [place] [address], 7th [place] [address] Caitie Ordoñez PA-C [address] [place] [address] [email or web address] Medication Refill Social History Tobacco Use Types [...] EST Blood Draw Infusion Therapy Services [facility] , [address], [address] [place] [address] Jg Morgan MD, PhD [address] [place] [phone] Dexter@[facility] Alexandra Suarez RN [address] [place] [address] Landry@[facility] 03/18/2025 2:00 PM EST Infusion Infusion Therapy Services [address], [address] [place] [address] Jg Morgan MD, PhD [address] [place] [address] Dexter@[facility] Cathy Luciano RN [address] [place] [address] [email or web address] 04/25/2025 10:10 AM EST Blood Draw Laboratory Services, [address], [address] [place] [address] Jg Morgan MD, PhD [address] [place] [address] Dexter@[facility] 04/25/2025 11:00 AM EST Office Visit [facility], Division of Hematologic Oncology, [address], [address] [place] [address] Alfa Olivia, DEEDEE [address] [place] [address] [email or web address] 04/25/2025 12:00 PM EST Infusion Infusion Therapy Services [facility] [address], [address], [address] [place] [address] Jg Morgan MD, PhD [address] [place] [address] Dexter@[facility] 07/18/2025 9:10 AM EDT Blood Draw Laboratory Services, [address], [address] [place] [address] Jg Morgan MD, PhD [address] [place] [address] Dexter@[facility] 07/18/2025 10:00 AM EDT Office Visit [facility], Division of Hematologic Oncology, [address], [address] [place] [address] Jg Morgan MD, PhD [address] [place] [address] Dexter@[facility] 10/10/2025 9:10 AM EDT Blood Draw Laboratory Services, [address], [address] [place] [address] Jg Morgan MD, PhD [address] [place] [address] Dexter@[facility] 10/10/2025 10:00 AM EDT Office Visit [facility], Division of Hematologic Oncology, [address], [address] [place] [address] Alfa Olivia, DEEDEE [address] [place] [address] [email or web address] documented as of this encounter Visit Diagnoses Not on filedocumented in this encounter Additional Health Concerns Infection Onset Date Last Indicated Resolved Time COVID-19 07/15/2022 07/15/2022 08/05/2022 1:21 AM EDT COVID-19 02/05/2023 02/05/2023 02/26/2023 1:23 AM EST documented as of this encounter Care Teams Communications Associate Relationship Specialty Start Date End Date David March MD [email or web address] PCP - General Internal Medicine 08/05/17 Sherri Yang MD [address] [place] [address] [email or web address] Referring Physician Hematology and Oncology 08/05/17 Jg Morgan MD, PhD [address] [place] [phone] [email or web address]@[email or web address] Primary Oncologist Oncology 08/05/17 Mary Lucas, RN [address] [place] [address] AILEEN@[facility] Primary Nurse 08/06/21 documented as of this encounter Additional Source Comments The information contained in this document represents components of the legal health record. It is not the complete legal health record.[facility]
--- OUTSIDE RECORDS SUMMARY | 2025-03-07 20:26 | XMS_ITS | Encounter Summary ---
Author Organization [facility] Address [address] [place] [address] Phone Care Team Providers Care Tax Technician Name Role Phone David March MD Primary Care Provider [phone] Sherri Yang MD Unavailable [phone] Jg Morgan MD, PhD Unavailable [phone] Mary Lucas RN Unavailable [phone] Reason for Visit * Reason Comments Medication Refill Encounter Details Date Type Department Care Team (Late st Contact Info) Description 06/12/2022 Refill [facility], Division of Hematologic Oncology, [facility] [place] [address] [place] [address], 7th [place] [address] Alfa Olivia, [address] [address] [email or web address] Medication Refill Social History Tobacco Use [...] PM EST Blood Draw Infusion Therapy Services [address], [address] [place] [address] Jg Morgan MD, PhD [address] [place] [phone] Dexter@[facility] Alexandra Suarez RN [address] [place] [address] [email or web address]@[facility] 03/18/2025 2:00 PM EST Infusion Infusion [facility] Services [address], [address] [place] [address] Jg Morgan MD, PhD [address] [place] [address] Dexter@[facility] Cathy Luciano RN [address] [place] [address] [email or web address] 04/25/2025 10:10 AM EST Blood Draw Laboratory Services, [address], 2nd [place] [address] Jg Morgan MD, PhD [address] [place] [address] Dexter@[facility] 04/25/2025 11:00 AM EST Office Visit Center for Lymphoma, Division of Hematologic Oncology, [address], [address]th [place] [address] Alfa Olivia, DEEDEE [address] [place] [address] [email or web address] 04/25/2025 12:00 PM EST Infusion Infusion Therapy Services [address], [address], 9th [place] [address] Jg Morgan MD, PhD [address] [place] [address] Dexter@[facility] 07/18/2025 9:10 AM EDT Blood Draw Laboratory Services, [address], 2nd [place] [address] Jg Morgan MD, PhD [address] [place] [address] Dexter@[facility] 07/18/2025 10:00 AM EDT Office Visit [facility], Division of Hematologic Oncology, [address], [address] [place] [address] Jg Morgan MD, PhD [address] [place] [address] Dexter@[facility] 10/10/2025 9:10 AM EDT Blood Draw Laboratory Services, [address], [address] [place] [address] Jg Morgan MD, PhD [address] [place] [address] Dexter@[facility] 10/10/2025 10:00 AM EDT Office Visit [facility], Division of Hematologic Oncology, [address], [address] [place] [address] Alfa Olivia, DEEDEE [address] [place] [address] [email or web address] documented as of this encounter Visit Diagnoses Not on filedocumented in this encounter Additional Health Concerns Infection Onset Date Last Indicated Resolved Time COVID-19 07/15/2022 07/15/2022 08/05/2022 1:21 AM EDT COVID-19 02/05/2023 02/05/2023 02/26/2023 1:23 AM EST documented as of this encounter Care Teams Tax Technician Relationship Specialty Start Date End Date David March MD [email or web address] PCP - General Internal Medicine 08/05/17 Sherri Yang MD [address] [place] [address] [email or web address] Referring Physician Hematology and Oncology 08/05/17 Jg Morgan MD, PhD [address] [place] [phone] [email or web address] Primary Oncologist Oncology 08/05/17 Mary Lucas, RN [address] [place] [address] AILEEN@[facility] Primary Nurse 08/06/21 documented as of this encounter Additional Source Comments The information contained in this document represents components of the legal health record. It is not the complete legal health record.[facility]
--- OUTSIDE RECORDS SUMMARY | 2025-03-07 20:26 | XMS_ITS | Encounter Summary ---
Author Organization [facility] Address [address] [place] [address] Phone Care Team Providers Care Rn First Assistant Name Role Phone David March MD Primary Care Provider [phone] Sherri Yang MD Unavailable [phone] Jg Morgan MD, PhD Unavailable [phone] Mary Lucas RN Unavailable [phone] Encounter Details Date Type Department Care Team (Late st Contact Info) Description 05/07/2022 Procedure Pass [facility] [address] [id number] Social History Tobacco Use Types Packs/Day Years [...] PM EST Blood Draw Infusion Therapy [facility] [address], 7th [place] [address] Jg Morgan MD, PhD [address] [place] [address] Dexter@[facility] Alexandra Suarez RN [address] [place] [address] Landry@[facility] 03/18/2025 2:00 PM EST Infusion Infusion Therapy Services [address], [address], 7th [place] [address] Jg Morgan MD, PhD [address] [place] [address] Dexter@[facility] Cathy Luciano RN [address] [place] [address] [email or web address] 04/25/2025 10:10 AM EST Blood Draw Laboratory Services, [address], 2nd [place] [address] Jg Morgan MD, PhD [address] [place] [address] Dexter@[facility] 04/25/2025 11:00 AM EST Office Visit [facility] for Lymphoma, Division of Hematologic Oncology, [address], [address]th [place] [address] Alfa Olivia, DEEDEE [address] [place] [address] [email or web address] 04/25/2025 12:00 PM EST Infusion Infusion Therapy Services [address], [address], [address]th [place] [address] Jg Morgan MD, PhD [address] [place] [address] Dexter@[facility] 07/18/2025 9:10 AM EDT Blood Draw Laboratory Services, [address], [address] [place] [address] Jg Morgan MD, PhD [address] [place] [address] Dexter@[facility] 07/18/2025 10:00 AM EDT Office Visit [facility], Division of Hematologic Oncology, [address], [address] [place] [address] Jg Morgan MD, PhD [address] [place] [address] Dexter@[facility] 10/10/2025 9:10 AM EDT Blood Draw Laboratory Services, [address], [address] [place] [address] Jg Morgan MD, PhD [address] [place] [address] Dexter@[facility] 10/10/2025 10:00 AM EDT Office Visit [facility], Division of Hematologic Oncology, [address], [address] [place] [address] Alfa Olivia, COURT BAILIFF [address] [place] [address] [email or web address] documented as of this encounter Visit Diagnoses Not on filedocumented in this encounter Additional Health Concerns Infection Onset Date Last Indicated Resolved Time COVID-19 07/15/2022 07/15/2022 08/05/2022 1:21 AM EDT COVID-19 02/05/2023 02/05/2023 02/26/2023 1:23 AM EST documented as of this encounter Care Teams Rn First Assistant Relationship Specialty Start Date End Date David March MD [email or web address] PCP - General Internal Medicine 08/05/17 Sherri Yang MD [address] [place] [address] [email or web address] Referring Physician Hematology and Oncology 08/05/17 Jg Morgan MD, PhD [address] [place] [phone] [email or web address]@[email or web address] Primary Oncologist Oncology 08/05/17 Mary Lucas RN [address] [place] [address] [email or web address] Primary Nurse 08/06/21 documented as of this encounter Additional Source Comments The information contained in this document represents components of the legal health record. It is not the complete legal health record.[facility]
--- OUTSIDE RECORDS SUMMARY | 2025-03-07 20:26 | XMS_ITS | Encounter Summary ---
Author Organization [facility] Address [address] [place] [address] Phone Care Team Providers Care Ophthalmic Technologist Name Role Phone David March MD Primary Care Provider [phone] Sherri Yang MD Unavailable [phone] Jg Morgan MD, PhD Unavailable [phone] Mary Lucas RN Unavailable [phone] Encounter Details Date Type Department Care Team (Late st Contact Info) Description 01/31/2025 Lab Requisition DF LAB MAIN [address] [place] [address], 2nd [place] [address] Jg Morgan MD, PhD [address] [place] [phone] [email or web address] Social History Tobacco Use Types Packs/Day Years [...] PM EST Blood Draw Infusion Therapy Services [address], [address] [place] [address] Jg Morgan MD, PhD [address] [place] [phone] Dexter@[facility] Alexandra Suarez RN [address] [place] [address] Landry@[facility] 03/18/2025 2:00 PM EST Infusion Infusion Therapy Services [address], [address] [place] [address] Jg Morgan MD, PhD [address] [place] [address] Dexter@[facility] Cathy Luciano RN [address] [place] [address] [email or web address] 04/25/2025 10:10 AM EST Blood Draw Laboratory Services, [address], [address] [place] [address] Jg Morgan MD, PhD [address] [place] [address] Dexter@[facility] 04/25/2025 11:00 AM EST Office Visit Center for Lymphoma, Division of Hematologic Oncology, [address], [address]th [place] [address] Alfa Olivia, BLOCK BREAKER [address] [place] [address] [email or web address] 04/25/2025 12:00 PM EST Infusion Infusion Therapy Services [address], [address], 9th [place] [address] Jg Morgan MD, PhD [address] [place] [address] Dexter@[facility] 07/18/2025 9:10 AM EDT Blood Draw Laboratory Services, [address], 2nd [place] [address] Jg Morgan MD, PhD [address] [place] [address] Dexter@[facility] 07/18/2025 10:00 AM EDT Office Visit Center for Lymphoma, Division of Hematologic Oncology, [address], [address]th [place] [address] Jg Morgan MD, PhD [address] [place] [address] Dexter@[facility] 10/10/2025 9:10 AM EDT Blood Draw Laboratory Services, [address], 2nd [place] [address] Jg Morgan MD, PhD [address] [place] [address] Dexter@[facility] 10/10/2025 10:00 AM EDT Office Visit [facility] for Lymphoma, Division of Hematologic Oncology, [address], 7th [place] [address] Alfa Olivia, BLOCK BREAKER [address] [facility] [place] [address] [email or web address] Pending Results Name Type Priority Associated Diagnoses Date /Time Miscellaneous Lab Test Lab Today 10:31 AM EST documented as of this encounter Visit Diagnoses Not on filedocumented in this encounter Care Teams Ophthalmic Technologist Relationship Specialty Start Date End Date David March MD [email or web address] PCP - General Internal Medicine 08/05/17 Sherri Yang MD [address] [place] [address] [email or web address] Referring Physician Hematology and Oncology 08/05/17 Jg Morgan MD, PhD [address] [place] [phone] [email or web address]@[email or web address] Primary Oncologist Oncology 08/05/17 Mary Lucas, STEPHANIE [address] [place] [address] AILEEN@[email or web address] Primary Nurse 08/06/21 documented as of this encounter Additional Source Comments The information contained in this document represents components of the legal health record. It is not the complete legal health record.[facility]
--- OUTSIDE RECORDS SUMMARY | 2025-03-07 20:26 | XMS_ITS | Encounter Summary ---
Author Organization [facility] Address [address] [place] [address] Phone Care Team Providers Care Hydraulic Elevator Constructor Name Role Phone David March MD Primary Care Provider [phone] Sherri Yang MD Unavailable [phone] Jg Morgan MD, PhD Unavailable [phone] Mary Lucas RN Unavailable [phone] Encounter Details Date Type Department Care Team (Late st Contact Info) Description 01/31/2025 Lab Requisition DF LAB MAIN [address] [place] [address], 2nd [place] [address] Jg Morgan MD, PhD [address] [place] [phone] [email or web address] Social History Tobacco Use Types Packs/Day Years [...] PM EST Blood Draw Infusion Therapy Services [address], [address] [place] [address] Jg Morgan MD, PhD [address] [place] [address] Dexter@[facility] Alexandra Suarez RN [address] [place] [address] Landry@[facility] 03/18/2025 2:00 PM EST Infusion Infusion Therapy Services [address], [address] [place] [address] Jg Morgan MD, PhD [address] [place] [address] Dexter@[facility] Cathy Luciano RN [address] [place] [address] [email or web address] 04/25/2025 10:10 AM EST Blood Draw Laboratory Services, [address], [address] [place] [address] Jg Morgan MD, PhD [address] [place] [address] Dexter@[facility] 04/25/2025 11:00 AM EST Office Visit Center for Lymphoma, Division of Hematologic Oncology, [address], [address] [place] [address] Alfa Olivia, RESIDENTIAL PROGRAM DIRECTOR [address] [place] [address] [email or web address] 04/25/2025 12:00 PM EST Infusion Infusion Therapy Services [address], [address], 9th [place] [address] Jg Morgan MD, PhD [address] [place] [address] Dexter@[facility] 07/18/2025 9:10 AM EDT Blood Draw Laboratory Services, [address], [address] [place] [address] Jg Morgan MD, PhD [address] [place] [address] Dexter@[facility] 07/18/2025 10:00 AM EDT Office Visit [facility] for Lymphoma, Division of Hematologic Oncology, [address], [address] [place] [address] Jg Morgan MD, PhD [address] [place] [address] Dexter@[facility] 10/10/2025 9:10 AM EDT Blood Draw Laboratory Services, [address], [address] [place] [address] Jg Morgan MD, PhD [address] [place] [address] Dexter@[facility] 10/10/2025 10:00 AM EDT Office Visit [facility] for Lymphoma, Division of Hematologic Oncology, [address], 7th [place] [address] NeAlfa tim, RESIDENTIAL PROGRAM DIRECTOR [address] [facility] [place] [address] [email or web address] documented as of this encounter Visit Diagnoses Not on filedocumented in this encounter Care Teams Hydraulic Elevator Constructor Relationship Specialty Start Date End Date David March MD [email or web address] PCP - General Internal Medicine 08/05/17 Sherri Yang MD [address] [place] [address] [email or web address] Referring Physician Hematology and Oncology 08/05/17 Jg Morgan MD, PhD [address] [place] [address] [email or web address]@[email or web address] Primary Oncologist Oncology 08/05/17 Mary Lucas, RN [address] [place] [address] [email or web address]@[email or web address] Primary Nurse 08/06/21 documented as of this encounter Additional Source Comments The information contained in this document represents components of the legal health record. It is not the complete legal health record.[facility]
--- OUTSIDE RECORDS SUMMARY | 2025-03-07 20:26 | XMS_ITS | Encounter Summary ---
Author Organization [facility] Address [address] [place] [address] Phone Care Team Providers Care Circulating Nurse Name Role Phone David March MD Primary Care Provider [phone] Sherri Yang MD Unavailable [phone] Jg Morgan MD, PhD Unavailable [phone] Mary Lucas RN Unavailable [phone] Encounter Details Date Type Department Care Team (Late st Contact Info) Description 01/18/2023 Procedure Pass [facility] Emt [address] [place] [address] Social History Tobacco Use Types Packs/Day Years [...] PM EST Blood Draw Infusion Therapy Services [address], [address] [place] [address] Jg Morgan MD, PhD [address] [place] [address] Dexter@[facility] Alexandra Suarez RN [address] [place] [address] Landry@[facility] 03/18/2025 2:00 PM EST Infusion Infusion Therapy Services [address], [address] [place] [address] Jg Morgan MD, PhD [address] [place] [address] Dexter@[facility] Cathy Luciano RN [address] [place] [address] [email or web address] 04/25/2025 10:10 AM EST Blood Draw Laboratory Services, [address], [address]nd [place] [address] Jg Morgan MD, PhD [address] [place] [address] Dexter@[facility] 04/25/2025 11:00 AM EST Office Visit [facility] for Lymphoma, Division of Hematologic Oncology, [address], [address] [place] [address] Alfa Olivia, DEEDEE [address] [place] [address] [email or web address] 04/25/2025 12:00 PM EST Infusion Infusion Therapy Services [address], [address], [address] [place] [address] Jg Morgan MD, PhD [address] [place] [address] Dexter@[facility] 07/18/2025 9:10 AM EDT Blood Draw Laboratory Services, [address], [address] [place] [address] Jg Morgan MD, PhD [address] [place] [address] Dexter@[facility] 07/18/2025 10:00 AM EDT Office Visit [facility], Division of Hematologic Oncology, [address], [address] [place] [address] Jg Morgan MD, PhD [address] [place] [address] Dexter@[facility] 10/10/2025 9:10 AM EDT Blood Draw Laboratory Services, [address], [address] [place] [address] Jg Morgan MD, PhD [address] [place] [address] Dexter@[facility] 10/10/2025 10:00 AM EDT Office Visit [facility] for Lymph[facility], Division of Hematologic Oncology, [address], [address] [place] [address] Alfa Olivia, LAST SAWYER [address] [place] [address] [email or web address]@[facility] documented as of this encounter Visit Diagnoses Not on filedocumented in this encounter Additional Health Concerns Infection Onset Date Last Indicated Resolved Time COVID-19 02/05/2023 02/05/2023 02/26/2023 1:23 AM EST documented as of this encounter Care Teams Circulating Nurse Relationship Specialty Start Date End Date David March MD [email or web address] PCP - General Internal Medicine 08/05/17 Sherri Yang MD [address] [place] [address] [email or web address] Referring Physician Hematology and Oncology 08/05/17 Jg Morgan MD, PhD [address] [place] [address] 18[address] Dexter@[facility] Primary Oncologist Oncology 08/05/17 Mary Lucas, RN [address] [place] [address] [email or web address] Primary Nurse 08/06/21 documented as of this encounter Additional Source Comments The information contained in this document represents components of the legal health record. It is not the complete legal health record.[facility]
--- OUTSIDE RECORDS SUMMARY | 2025-03-07 20:26 | XMS_ITS | Encounter Summary ---
Author Organization [facility] Address [address] [place] [address] Phone Care Team Providers Care Tearer Press Clipping Name Role Phone David March MD Primary Care Provider [phone] Sherri Yang MD Unavailable [phone] Jg Morgan MD, PhD Unavailable [phone] Mary Lucas RN Unavailable [phone] Encounter Details Date Type Department Care Team (Late st Contact Info) Description 08/26/2017 Procedure Pass DF IMG OUTSIDE IMG [address] [place] [address] Social History Tobacco Use Types Packs/Day Years [...] PM EST Blood Draw Infusion Therapy Services [place] [address], [facility] [address], 7th [place] [address] Jg Morgan MD, PhD [address] [place] [address] [email or web address]@[facility] Alexandra Suarez RN [address] [place] [address] Landry@[facility] 03/18/2025 2:00 PM EST Infusion Infusion Therapy Services [address] [address], [address], 7th [place] [address] Jg Morgan MD, PhD [address] [place] [address] Dexter@[facility] Cathy Luciano RN [address] [place] [address] [email or web address] 04/25/2025 10:10 AM EST Blood Draw Laboratory Services, [address], 2nd [place] [address] Jg Morgan MD, PhD [address] [place] [address] Dexter@[facility] 04/25/2025 11:00 AM EST Office Visit [facility], Division of Hematologic Oncology, [address], 7th [place] [address] Alfa Olivia, DEEDEE [address] [place] [address] [email or web address] 04/25/2025 12:00 PM EST Infusion Infusion Therapy Services [address], [address], 9th [place] [address] Jg Morgan MD, PhD [address] [place] [address] Dexter@[facility] 07/18/2025 9:10 AM EDT Blood Draw Laboratory Services, [address], [address] [place] [address] Jg Morgan MD, PhD [address] [place] [address] Dexter@[facility] 07/18/2025 10:00 AM EDT Office Visit [facility], Division of Hematologic Oncology, [address], [address] [place] [address] Jg Morgan MD, PhD [address] [place] [address] Dexter@[facility] 10/10/2025 9:10 AM EDT Blood Draw Laboratory Services, [address], [address] [place] [address] Jg Morgan MD, PhD [address] [place] [address] Dexter@[facility] 10/10/2025 10:00 AM EDT Office Visit [facility], Division of Hematologic Oncology, [address], [address] [place] [address] Alfa Olivia, FARM PRODUCTS SHIPPER [address] [place] [address] [email or web address] documented as of this encounter Visit Diagnoses Not on filedocumented in this encounter Additional Health Concerns Infection Onset Date Last Indicated Resolved Time 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 Antigen at home test positive 08/15. Had outside molecular testing done. 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 Please contact [facility] to resolve flag. --Shiva Lozadaieh, [facility] 10/09/21 tested negative for covid, patient is sx free. > 20 days since onset. LD DFCI 08/15/2021 08/15/2021 10/23/2021 9:50 AM E DT COVID-19 07/15/2022 07/15/2022 08/05/2022 1:21 AM EDT COVID-19 02/05/2023 02/05/2023 02/26/2023 1:23 AM EST documented as of this encounter Care Teams Tearer Press Clipping Relationship Specialty Start Date End Date David March MD [email or web address] PCP - General Internal Medicine 08/05/17 Sherri Yang MD [address] [place] [address] [email or web address] Referring Physician Hematology and Oncology 08/05/17 Jg Morgan MD, PhD [address] [place] [address] [email or web address] Primary Oncologist Oncology 08/05/17 Mary Lucas, STEPHANIE [address] [place] [address] [email or web address]@[email or web address] Primary Nurse 08/06/21 documented as of this encounter Additional Source Comments The information contained in this document represents components of the legal health record. It is not the complete legal health record.[facility]
--- OUTSIDE RECORDS SUMMARY | 2025-03-07 20:26 | XMS_ITS | Encounter Summary ---
Author Organization [facility] Address [address] [place] [address] Phone Care Team Providers Care Brush Washer Name Role Phone David March MD Primary Care Provider [phone] Sherri Yang MD Unavailable [phone] Jg Morgan MD, PhD Unavailable [phone] Mary Lucas RN Unavailable Encounter Details Date Type Department Care Team (Late st Contact Info) Description 03/01/2024 Procedure Pass [facility] [address] [place] [address] Social History Tobacco Use Types Packs/Day Years [...] PM EST Blood Draw Infusion Therapy Services [address], [address] [place] [address] Jg Morgan MD, PhD [address] [place] [phone] [email or web address]@[email or web address] Alexandra Suarez RN [address] [place] [address] Landry@[facility] 03/18/2025 2:00 PM EST Infusion Infusion Therapy Services [address], [address] [place] [address] Jg Morgan MD, PhD [address] [place] [address] [email or web address]@[facility] Cathy Luciano RN [address] [place] [address] [email or web address] 04/25/2025 10:10 AM EST Blood Draw Laboratory Services, [address], 2nd [place] [address] Jg Morgan MD, PhD [address] [place] [phone] [email or web address]@[email or web address] 04/25/2025 11:00 AM EST Office Visit [facility], Division of Hematologic Oncology, [address], 7th [place] [address] Alfa Olivia, DEEDEE [address] [place] [address] [email or web address] 04/25/2025 12:00 PM EST Infusion Infusion Therapy Services [address], [address], [address]th [place] [address] Jg Morgan MD, PhD [address] [place] [address] [email or web address]@[email or web address] 07/18/2025 9:10 AM EDT Blood Draw Laboratory Services, [address], [address]nd [place] [address] Jg Morgan MD, PhD [address] [place] [address] [email or web address]@[email or web address] 07/18/2025 10:00 AM EDT Office Visit [facility], Division of Hematologic Oncology, [address], [address]th [place] [address] Jg Morgan MD, PhD [address] [place] [phone] [email or web address]@[email or web address] 10/10/2025 9:10 AM EDT Blood Draw Laboratory Services, [address], [address]nd [place] [address] Jg Morgan MD, PhD [address] [place] [address] Dexter@[facility] 10/10/2025 10:00 AM EDT Office Visit [facility], Division of Hematologic Oncology, [address], [address]th [place] [address] Alfa Olivia, DEFENSIVE LINE COACH [address] [place] [address] [email or web address] documented as of this encounter Visit Diagnoses Not on filedocumented in this encounter Care Teams Brush Washer Relationship Specialty Start Date End Date David March MD [email or web address] PCP - General Internal Medicine 08/05/17 Sherri Yang MD [address] [place] [address] [email or web address] Referring Physician Hematology and Oncology 08/05/17 Jg Morgan MD, PhD [address] [place] [address] [email or web address] Primary Oncologist Oncology 08/05/17 Mary Lucas, RN [address] [place] [address] AILEEN@[facility] Primary Nurse 08/06/21 documented as of this encounter Additional Source Comments The information contained in this document represents components of the legal health record. It is not the complete legal health record.[facility]
--- OUTSIDE RECORDS SUMMARY | 2025-03-07 20:26 | XMS_ITS | Encounter Summary ---
Author Organization [facility] Address [address] [place] [address] Phone Care Team Providers Care Dinkey Locomotive Operator Name Role Phone David March MD Primary Care Provider [phone] Sherri Yang MD Unavailable [phone] Jg Morgan MD, PhD Unavailable [phone] Mary Lucas RN Unavailable [phone] Encounter Details Date Type Department Care Team (Late st Contact Info) Description 03/05/2020 Procedure Pass [facility]yl [facility] Imaging Department, [facility] [place], [address], Floor [address] [place] [id number] Social History Tobacco Use Types Packs/Day Years [...] PM EST Blood Draw Infusion Therapy Services [place] [address], [address], 7th [place] [address] Jg Morgan MD, PhD [address] [place] [address] Dexter@[facility] Alexandra Suarez RN [address] [place] [address] Landry@[facility] 03/18/2025 2:00 PM EST Infusion Infusion Therapy Services [address], [address], 7th [place] [address] Jg Morgan MD, PhD [address] [place] [address] Dexter@[facility] Cathy Luciano RN [address] [place] [address] [email or web address] 04/25/2025 10:10 AM EST Blood Draw Laboratory Services, [address], 2nd [place] [address] Jg Morgan MD, PhD [address] [place] [address] Dexter@[facility] 04/25/2025 11:00 AM EST Office Visit [facility] for Lymphoma, Division of Hematologic Oncology, [address], 7th [place] [address] Alfa Olivia, TOLL LINE INSPECTOR [address] [place] [address] [email or web address] 04/25/2025 12:00 PM EST Infusion Infusion Therapy Services [address], [address], 9th [place] [address] Jg Morgan MD, PhD [address] [place] [address] Dexter@[facility] 07/18/2025 9:10 AM EDT Blood Draw Laboratory Services, [address], [address] [place] [address] Jg Morgan MD, PhD [address] [place] [address] Dexter@[facility] 07/18/2025 10:00 AM EDT Office Visit [facility], Division of Hematologic Oncology, [address], [address] [place] [address] Jg Morgan MD, PhD [address] [place] [address] Dexter@[facility] 10/10/2025 9:10 AM EDT Blood Draw Laboratory Services, [address], [address] [place] [address] Jg Morgan MD, PhD [address] [place] [address] Dexter@[facility] 10/10/2025 10:00 AM EDT Office Visit [facility], Division of Hematologic Oncology, [address], [address] [place] [address] Alfa Olivia Barbara, TOLL LINE INSPECTOR [address] [place] [address] [email or web address] documented as of this encounter Visit Diagnoses Not on filedocumented in this encounter Additional Health Concerns Infection Onset Date Last Indicated Resolved Time 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 Antigen at home test positive 08/15. Had outside molecular testing done. 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 Please contact [facility] to resolve flag. --Shiva Mckeon, [facility] 10/09/21 tested negative for covid, patient is sx free. > 20 days since onset. LD DFCI 08/15/2021 08/15/2021 10/23/2021 9:50 AM E DT COVID-07/15/2022 07/15/2022 08/05/2022 1:21 AM EDT COVID-19 02/05/2023 02/05/2023 02/26/2023 1:23 AM EST documented as of this encounter Care Teams Dinkey Locomotive Operator Relationship Specialty Start Date End Date David March MD [email or web address] PCP - General Internal Medicine 08/05/17 Sherri Yang MD [address] [place] [address] [email or web address] Referring Physician Hematology and Oncology 08/05/17 Jg Morgan MD, PhD [address] [place] [address] [email or web address] Primary Oncologist Oncology 08/05/17 Mary Lucas, RN [address] [place] [address] [email or web address] Primary Nurse 08/06/21 documented as of this encounter Additional Source Comments The information contained in this document represents components of the legal health record. It is not the complete legal health record.[facility]
--- OUTSIDE RECORDS SUMMARY | 2025-03-07 20:26 | XMS_ITS | Encounter Summary ---
Author Organization [facility] Address [address] [place] [address] Phone Care Team Providers Care Sheet Cutter Name Role Phone David March MD Primary Care Provider [phone] Sherri Yang MD Unavailable [phone] Jg Morgan MD, PhD Unavailable [phone] Mary Lucas RN Unavailable [phone] Encounter Details Date Type Department Care Team (Late st Contact Info) Description 03/20/2022 Procedure Pass Meryl Lank Imaging Department, [facility], [address], Floor [address] [place] [id number] Social History Tobacco Use Types Packs/Day Years [...] PM EST Blood Draw Infusion Therapy Services [place] [address], [facility] [address], 7th [place] [address] Jg Morgan MD, PhD [address] [place] [address] Dexter@[facility] Alexandra Suarez RN [address] [place] [phone] Landry@[facility] 03/18/2025 2:00 PM EST Infusion Infusion Therapy Services [place] [address], [address], 7th [place] [address] Jg Morgan MD, PhD [address] [place] [address] Dexter@[facility] Cathy Luciano RN [address] [place] [address] [email or web address] 04/25/2025 10:10 AM EST Blood Draw Laboratory Services, [address], 2nd [place] [address] Jg Morgan MD, PhD [address] [place] [address] [email or web address]@[facility] 04/25/2025 11:00 AM EST Office Visit [facility] for Lymph[facility], Division of Hematologic Oncology, [address], [address]th [place] [address] Alfa Olivia, VACUUM PAN OPERATOR [address] [place] [address] [email or web address] 04/25/2025 12:00 PM EST Infusion Infusion Therapy Services [place], [address], [address]th [place] [address] Jg Morgan MD, PhD [address] [place] [address] Dexter@[facility] 07/18/2025 9:10 AM EDT Blood Draw Laboratory Services, [address], [address]nd [place] [address] Jg Morgan MD, PhD [address] [place] [phone] Dexter@[facility] 07/18/2025 10:00 AM EDT Office Visit [facility], Division of Hematologic Oncology, [address], [address] [place] [address] Jg Morgan MD, PhD [address] [place] [phone] Dexter@[facility] 10/10/2025 9:10 AM EDT Blood Draw Laboratory Services, [address], [address] [place] [address] Jg Morgan MD, PhD [address] [place] [address] Dexter@[facility] 10/10/2025 10:00 AM EDT Office Visit [facility], Division of Hematologic Oncology, [address], [address] [place] [address] Alfa Olivia, VACUUM PAN OPERATOR [address] [place] [address] [email or web address] documented as of this encounter Visit Diagnoses Not on filedocumented in this encounter Additional Health Concerns Infection Onset Date Last Indicated Resolved Time COVID-19 07/15/2022 07/15/2022 08/05/2022 1:21 AM EDT COVID-19 02/05/2023 02/05/2023 02/26/2023 1:23 AM EST documented as of this encounter Care Teams Sheet Cutter Relationship Specialty Start Date End Date David March MD [email or web address] PCP - General Internal Medicine 08/05/17 Sherri Yang MD [address] [place] [address] [email or web address] Referring Physician Hematology and Oncology 08/05/17 Jg Morgan MD, PhD [address] [place] [address] [email or web address] Primary Oncologist Oncology 08/05/17 Mary Lucas, RN [address] [place] [address] [email or web address]@[facility] Primary Nurse 08/06/21 documented as of this encounter Additional Source Comments The information contained in this document represents components of the legal health record. It is not the complete legal health record.[facility]
--- OUTSIDE RECORDS SUMMARY | 2025-03-07 20:26 | XMS_ITS | Encounter Summary ---
Author Organization [facility] Address [address] [place] [address] Phone Care Team Providers Care Dog Day Care Attendant Name Role Phone David March MD Primary Care Provider [phone] Sherri Yang MD Unavailable [phone] Jg Morgan MD, PhD Unavailable [phone] Mary Lucas RN Unavailable [phone] Reason for Visit * Reason Comments Medication Refill Encounter Details Date Type Department Care Team (Late st Contact Info) Description 08/18/2022 Refill [facility], Division of Hematologic Oncology, [facility] [place] [address] [place] [address], 7th [place] [address] Jg Morgan MD, PhD [address] [place] [phone] [email or web address] Medication Refill Social History Tobacco Use Types [...] PM EST Blood Draw Infusion Therapy Services [address], [address] [place] [address] Jg Morgan MD, PhD [address] [place] [phone] [email or web address]@[facility] Alexandra Suarez RN [address] [place] [phone] Landry@[facility] 03/18/2025 2:00 PM EST [facility]fusion [facility], [address], [address] [place] [address] Jg Morgan MD, PhD [address] [place] [address] [email or web address]@[facility] Cathy Luciano RN [address] [place] [address] [email or web address] 04/25/2025 10:10 AM EST Blood Draw Laboratory Services, [address], [address] [place] [address] Jg Morgan MD, PhD [address] [place] [address] [email or web address]@[facility] 04/25/2025 11:00 AM EST Office Visit [facility], Division of Hematologic Oncology, [address], [address] [place] [address] Alfa Olivia, ENERGY SALES BROKER [address] [place] [address] [email or web address] 04/25/2025 12:00 PM EST Infusion Infusion Therapy Services [address], [address], [address] [place] [address] Jg Morgan MD, PhD [address] [place] [phone] [email or web address]@[facility] 07/18/2025 9:10 AM EDT Blood Draw Laboratory Services, [address], [address] [place] [address] Jg Morgan MD, PhD [address] [place] [phone] [email or web address] 07/18/2025 10:00 AM EDT Office Visit [facility], Division of Hematologic Oncology, [address], [address] [place] [address] Jg Morgan MD, PhD [address] [place] [phone] [email or web address]@[facility] 10/10/2025 9:10 AM EDT Blood Draw Laboratory Services, [address], [address] [place] [address] Jg Morgan MD, PhD [address] [place] [address] [email or web address] 10/10/2025 10:00 AM EDT Office Visit [facility] for [facility], Division of Hematologic Oncology, [facility] [place] [address] [facility], 7th [place] [address] Alfa Olivia, ENERGY SALES BROKER [address] [place] [address] [email or web address] documented as of this encounter Visit Diagnoses Not on filedocumented in this encounter Additional Health Concerns Infection Onset Date Last Indicated Resolved Time COVID-19 02/05/2023 02/05/2023 02/26/2023 1:23 AM EST documented as of this encounter Care Teams Dog Day Care Attendant Relationship Specialty Start Date End Date David March MD [email or web address] PCP - General Internal Medicine 08/05/17 Sherri Yang MD [address] [place] [address] [email or web address] Referring Physician Hematology and Oncology 08/05/17 Jg Morgan MD, PhD [address] [place] [address] [email or web address] Primary Oncologist Oncology 08/05/17 Mary Lucas, RN [address] [place] [address] [email or web address] Primary Nurse 08/06/21 documented as of this encounter Additional Source Comments The information contained in this document represents components of the legal health record. It is not the complete legal health record.[facility]
--- OUTSIDE RECORDS SUMMARY | 2025-03-07 20:26 | XMS_ITS | Encounter Summary ---
Author Organization [facility] Address [address] [place] [address] Phone Care Team Providers Care Assistant Attorney General Name Role Phone David March MD Primary Care Provider [phone] Sherri Yang MD Unavailable [phone] Jg Morgan MD, PhD Unavailable [phone] Mary Lucas RN Unavailable [phone] Encounter Details Date Type Department Care Team (Late st Contact Info) Description 02/06/2022 Procedure Pass [facility] Imaging Department, [facility] [place], [address], Floor [address] [place] [id number] Social History Tobacco Use Types Packs/Day Years [...] Blood Draw Infusion Therapy Services [place] [address], [facility] [address], [address] [place] [address] Jg Morgan MD, PhD [address] [place] [phone] [email or web address] Alexandra Suarez RN [address] [place] [phone] Landry@[facility] 03/18/2025 2:00 PM EST Infusion Infusion Therapy Services [place] [address], [address], [address] [place] [address] Jg Morgan MD, PhD [address] [place] [phone] Dexter@[email or web address] Cathy Luciano RN [address] [place] [phone] [email or web address] 04/25/2025 10:10 AM EST Blood Draw Laboratory Services, [address], [address]nd [place] [address] Jg Morgan MD, PhD [address] [place] [phone] [email or web address]@[email or web address] 04/25/2025 11:00 AM EST Office Visit [facility], Division of Hematologic Oncology, [address], [address] [place] [address] Alfa Olivia, ROOF BOLTER [address] [place] [address] [email or web address] 04/25/2025 12:00 PM EST Infusion Infusion Therapy Services [place] [address], [address], [address] [place] [address] gJ Morgan MD, PhD [address] [place] [phone] Dexter@[email or web address] 07/18/2025 9:10 AM EDT Blood Draw Laboratory Services, [address], [address] [place] [address] Jg Morgan MD, PhD [address] [place] [phone] Dexter@[facility] 07/18/2025 10:00 AM EDT Office Visit [facility], Division of Hematologic Oncology, [address], [address] [place] [address] Jg Morgan MD, PhD [address] [place] [phone] Dexter@[facility] 10/10/2025 9:10 AM EDT Blood Draw Laboratory Services, [address], [address] [place] [address] Jg Morgan MD, PhD [address] [place] [phone] Dexter@[facility] 10/10/2025 10:00 AM EDT Office Visit [facility], Division of Hematologic Oncology, [address], [address] [place] [address] Alfa Olivia, ROOF BOLTER [address] [place] [address] [email or web address] documented as of this encounter Visit Diagnoses Not on filedocumented in this encounter Additional Health Concerns Infection Onset Date Last Indicated Resolved Time COVID-19 07/15/2022 07/15/2022 08/05/2022 1:21 AM EDT COVID-19 02/05/2023 02/05/2023 02/26/2023 1:23 AM EST documented as of this encounter Care Teams Assistant Attorney General Relationship Specialty Start Date End Date David March MD [email or web address] PCP - General Internal Medicine 08/05/17 Sherri Yang MD [address] [place] [phone] [email or web address] Referring Physician Hematology and Oncology 08/05/17 Jg Morgan MD, PhD [address] [place] [phone] [email or web address] Primary Oncologist Oncology 08/05/17 Mary Lucas, RN [address] [place] [phone] [email or web address] Primary Nurse 08/06/21 documented as of this encounter Additional Source Comments The information contained in this document represents components of the legal health record. It is not the complete legal health record.[facility]
--- OUTSIDE RECORDS SUMMARY | 2025-03-07 20:26 | XMS_ITS | Encounter Summary ---
Author Organization [facility] Address [address] [place] [address] Phone Care Team Providers Care Plastics Fabricator Or Welder Name Role Phone David March MD Primary Care Provider [phone] Sherri Yang MD Unavailable [phone] Jg Morgan MD, PhD Unavailable [phone] Mary Lucas RN Unavailable [phone] Encounter Details Date Type Department Care Team (Late st Contact Info) Description 08/26/2017 Procedure Pass DF IMG OUTSIDE IMG [address] [place] [address] Social History Tobacco Use Types Packs/Day Years [...] PM EST Blood Draw Infusion Therapy Services [place] [address], [facility] [address], [address]th [place] [address] Jg Morgan MD, PhD [address] [place] [address] [email or web address]@[email or web address] Alexandra Suarez RN [address] [place] [phone] Landry@[facility] 03/18/2025 2:00 PM EST Infusion Infusion Therapy Services [place] [address], [address], [address] [place] [address] Jg Morgan MD, PhD [address] [place] [phone] [email or web address]@[facility] Cathy Luciano RN [address] [place] [address] [email or web address] 04/25/2025 10:10 AM EST Blood Draw Laboratory Services, [address], [address] [place] [address] Jg Morgan MD, PhD [address] [place] [id number] [email or web address]@[facility] 04/25/2025 11:00 AM EST Office Visit [facility], Division of Hematologic Oncology, [address], [address] [place] [address] Alfa Olivia, DEEDEE [address] [place] [address] [email or web address] 04/25/2025 12:00 PM EST Infusion Infusion Therapy Services [place] [address], [address], [address] [place] [address] Jg Morgan MD, PhD [address] [place] [phone] Dexter@[facility] 07/18/2025 9:10 AM EDT Blood Draw Laboratory Services, [address], [address] [place] [address] Jg Morgan MD, PhD [address] [place] [id number] [email or web address]@[facility] 07/18/2025 10:00 AM EDT Office Visit [facility], Division of Hematologic Oncology, [address], [address] [place] [address] Jg Morgan MD, PhD [address] [place] [phone] Dexter@[facility] 10/10/2025 9:10 AM EDT Blood Draw Laboratory Services, [address], [address] [place] [address] Jg Morgan MD, PhD [address] [place] [phone] Dexter@[facility] 10/10/2025 10:00 AM EDT Office Visit [facility], Division of Hematologic Oncology, [address], [address] [place] [address] Alfa Olivia, HEALTH SCREENER [address] [place] [address] [email or web address] documented as of this encounter Visit Diagnoses Not on filedocumented in this encounter Additional Health Concerns Infection Onset Date Last Indicated Resolved Time 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 Antigen at home test positive 08/15. Had outside molecular testing done. 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 [facility] to resolve flag. --Shiva Lozadaieh, [facility] 10/09/21 tested negative for covid, patient is sx free. > 20 days since onset. LD DFCI 08/15/2021 08/15/2021 10/23/2021 9:50 AM E DT COVID-19 07/15/2022 07/15/2022 08/05/2022 1:21 AM EDT COVID-19 02/05/2023 02/05/2023 02/26/2023 1:23 AM EST documented as of this encounter Care Teams Plastics Fabricator Or Welder Relationship Specialty Start Date End Date David March MD [email or web address] PCP - General Internal Medicine 08/05/17 Sherri Yang MD [address] [place] [phone] [email or web address] Referring Physician Hematology and Oncology 08/05/17 Jg Morgan MD, PhD [address] [place] [phone] Dexter@[email or web address] Primary Oncologist Oncology 08/05/17 Mary Lucas, STEPHANIE [address] [place] [address] [email or web address] Primary Nurse 08/06/21 documented as of this encounter Additional Source Comments The information contained in this document represents components of the legal health record. It is not the complete legal health record.[facility]
--- OUTSIDE RECORDS SUMMARY | 2025-03-07 20:26 | XMS_ITS | Encounter Summary ---
Author Organization [facility] Address [address] [place] [address] Phone Care Team Providers Care Calculus Professor Name Role Phone David March MD Primary Care Provider [phone] Sherri Yang MD Unavailable [phone] Jg Morgan MD, PhD Unavailable [phone] Mary Lucas RN Unavailable [phone] Encounter Details Date Type Department Care Team (Late st Contact Info) Description 05/20/2022 Procedure Pass [facility] CT Imaging, [place] [address] [place] [address] Social History Tobacco Use Types Packs/Day Years [...] PM EST [facility] [place] [address] [place] [address], [address]th [place] [address] Jg Morgan MD, PhD [address] [place] [address] [email or web address]@[email or web address] Alexandra Suarez RN [address] [place] [phone] [email or web address]@[email or web address] 03/18/2025 2:00 PM EST Infusion Infusion Therapy Services [place] [address], [address], [address] [place] [address] Jg Morgan MD, PhD [address] [place] [phone] Dexter@[email or web address] Cathy Luciano RN [address] [place] [address] [email or web address] 04/25/2025 10:10 AM EST Blood Draw Laboratory Services, [address], [address] [place] [address] Jg Morgan MD, PhD [address] [place] [phone] [email or web address]@[email or web address] 04/25/2025 11:00 AM EST Office Visit [facility], Division of Hematologic Oncology, [address], [address] [place] [address] Alfa Olivia, DEEDEE [address] [place] [address] [email or web address] 04/25/2025 12:00 PM EST Infusion Infusion Therapy Services [place] [address], [address], [address] [place] [address] Jg Morgan MD, PhD [address] [place] [phone] [email or web address]@[email or web address] 07/18/2025 9:10 AM EDT Blood Draw Laboratory Services, [address], [address] [place] [address] Jg Morgan MD, PhD [address] [place] [address] [email or web address] 07/18/2025 10:00 AM EDT Office Visit [facility], Division of Hematologic Oncology, [address], [address] [place] [address] Jg Morgan MD, PhD [address] [place] [phone] Dexter@[email or web address] 10/10/2025 9:10 AM EDT Blood Draw Laboratory Services, [address], [address] [place] [address] Jg Morgan MD, PhD [address] [place] [phone] Dexter@[email or web address] 10/10/2025 10:00 AM EDT Office Visit [facility], Division of Hematologic Oncology, [address], [address] [place] [address] lAfa Olivia, VAT TENDER [address] [place] [address] [email or web address] documented as of this encounter Visit Diagnoses Not on filedocumented in this encounter Additional Health Concerns Infection Onset Date Last Indicated Resolved Time COVID-19 07/15/2022 07/15/2022 08/05/2022 1:21 AM EDT COVID-19 02/05/2023 02/05/2023 02/26/2023 1:23 AM EST documented as of this encounter Care Teams Calculus Professor Relationship Specialty Start Date End Date David March MD [email or web address] PCP - General Internal Medicine 08/05/17 Sherri Yang MD [address] [place] [phone] [email or web address] Referring Physician Hematology and Oncology 08/05/17 Jg Morgan MD, PhD [address] [place] [phone] Dexter@[email or web address] Primary Oncologist Oncology 08/05/17 Mary Lucas, RN [address] [place] [phone] [email or web address] Primary Nurse 08/06/21 documented as of this encounter Additional Source Comments The information contained in this document represents components of the legal health record. It is not the complete legal health record.[facility]
== END 2025-03-07 15:56 | disposition home or self-care (01) ==
PROVIDERS: PCP Internal Medicine; Visit Provider Nurse Practitioner Family
DX: Z87.09 Personal history of other diseases of the respiratory system (principal); C91.10 Chronic lymphocytic leukemia of B-cell type not having achieved remission
CPT/HCPCS: 99213